=== PATIENT | female | born 1955 | race Caucasian/White ===

== ENCOUNTER 2016-10-30 19:22 | Inpatient (IN) | payer MEDICAID ==
[~2016-10-30] VITALS: Ht 172.7 cm; Wt 118.0 kg
[~2016-10-30 19:22] MED LIST: ASC500 PO; ASPI81TA3 PO; ATEN-122 NGT; CEPH500C PO; DIPH1TAB25 PO; FER325 PO; VERA240T94 PO
[2016-10-30] MEDS ORDERED: SOD CHLORIDE 0.9% 1,000 ML IV STA (22:12)
[2016-10-30] MEDS ORDERED: morphine 2 MG INJ IV STA (22:12)
[2016-10-30] MEDS ORDERED: ONDANSETRON 4 MG INJ IV STA (22:12)
[2016-10-30 22:47] LABS: ADD SCAN DIFF NO
[2016-10-30 22:56] LABS: BASOPHILS % 0.3 % (0.0-2.0); EOSINOPHILS # 0.4 10^3/ul (0.0-0.5); EOSINOPHILS % 2.8 % (0.0-7.0); HEMATOCRIT 29.4 % (37.0-47.0); HEMOGLOBIN 8.6 g/dl (12.0-16.0); LYMPHOCYTES # 3.3 10^3/ul (0.8-2.9); LYMPHOCYTES % 26.1 % (15.0-51.0); MEAN CORPUSCULAR HEMOGLOBIN 20.8 pg (29.0-33.0); MEAN CORPUSCULAR HGB CONC 29.3 g/dl (32.0-37.0); MEAN CORPUSCULAR VOLUME 71.2 fl (82.0-101.0); MEAN PLATELET VOLUME 8.6 fl (7.4-10.4); MONOCYTE # 0.9 10^3/ul (0.3-0.9); MONOCYTES % 6.9 % (0.0-11.0); NEUTROPHILS % 63.5 % (39.0-77.0); PLATELET COUNT 564 10^3/UL (140-415); RED BLOOD COUNT 4.13 10^6/ul (4.20-5.40); RED CELL DISTRIBUTION WIDTH 20.3 % (11.5-14.5); WHITE BLOOD COUNT 12.6 10^3/ul (4.8-10.8)
[2016-10-30 23:01] LABS: ALBUMIN 3.5 g/dl (3.3-4.9); POTASSIUM 4.6 mmol/L (3.5-5.1)
[2016-10-30 23:02] LABS: ADD UMIC YES; URINE BILIRUBIN (Dip) NEGATIVE (NEGATIVE); URINE BLOOD (Dip) NEGATIVE (NEGATIVE); URINE COLOR LT. YELLOW (YELLOW); URINE GLUCOSE (Dip) NEGATIVE (NEGATIVE); URINE KETONES (Dip) NEGATIVE (NEGATIVE); URINE LEUKOCYTE ESTERASE (Dip) 1+ (NEGATIVE); URINE NITRITE (Dip) NEGATIVE (NEGATIVE); URINE TOTAL PROTEIN (Dip) NEGATIVE (NEGATIVE); URINE UROBILINOGEN (Dip) 0.2 E.U./dL (0.1-1.0)
[2016-10-30 23:03] LABS: CREATININE 0.84 mg/dl (0.44-1.00)
[2016-10-30 23:04] LABS: ALBUMIN/GLOBULIN RATIO 0.77; CALCIUM 9.5 mg/dl (8.4-10.2)
[2016-10-30 23:24] LABS: BACTERIA,URINE RARE; SQUAMOUS EPITHELIAL CELL,UR FEW; URINE RBCS 0-2 /HPF (0)
--- NOTE | 2016-10-31 00:53 | RADRPT ---
PROCEDURE: CT abdomen and pelvis without contrast. CLINICAL INDICATION: Abdominal pain TECHNIQUE: CT scan of the abdomen and pelvis without contrast was performed. Sagittal and coronal reformatted images were obtained from the axial source images. CTDI = 16.78 mGy; DLP = 1016.98 mGy- cm COMPARISON: None available. FINDINGS: Visualized lower thorax: Minimal inferior lingular scarring otherwise the lung bases are clear. Th ere is no evidence for pleural effusion. Liver, gallbladder, pancreas and spleen: Mild hepatomegaly of 20 cm is present with normal contour and attenuation. There is no evidence for a liver mass or ductal dilatation. Cholecystectomy clips are present. Within the right upper abdominal wall just anterior to the left hepatic lobe is a def ect of approximately 5.2 cm in transverse dimension through which a fat containing right paracentral ventral hernia extends, the hernia estimated at 8.5 cm parentheses series 3 image 54). No common b ile duct abnormality is demonstrated. The pancreas is unremarkable. The spleen is normal in size. Adrenal glands and genitourinary system: The adrenal glands are normal bilaterally. The right kidne y demonstrates calculi, the lower pole stones have an aggregate dimension of 1.3 x 1.2 cm and in att enuation estimated at 900 HU (series 3 image 91). An additional separate posterior lower pole calcu chelsey of 6 mm is also present. There is no evidence of hydronephrosis. A simple cyst of the lower po le right kidney measures 5.3 cm. The left kidney has too small lower pole calculi each measuring ap proximately 3 mm and without hydronephrosis. Multiple cysts of the left renal cortex are present th e largest has a calcified septation and bilobed appearance in the upper pole, the abnormality measur ing 8 cm in greatest dimension. The ureters are unremarkable. No urinary bladder abnormality is de monstrated. Slightly lobulated contour to the uterine corpus unable to exclude small leiomyomata. No ovarian or adnexal masses are present. There is no free fluid in the cul-de-sac. Gastrointestinal system: The stomach is normal in caliber with no abnormality of significance. The small bowel is normal in caliber with no ileus, obstruction or wall thickening. The appendix and s urrounding fat are within the limits of normal. In the proximal ascending colon there is abnormal w all thickening of up to 4 cm that raises concern for underlying neoplasm, small sub centimeter peric olonic lymph nodes are present (series 601 images 39-49). Diverticular disease of the descending an d sigmoid colon is moderate to severe but there is no evidence of diverticulitis. Peritoneum, retroperitoneum, lymph nodes and vessels: The abdominal aorta is normal in caliber. The re is no evidence for atherosclerotic calcification. The inferior vena cava is unremarkable. In the lymph nodes within the right lower quadrant are prominent but measure less than 1 cm. The retroper itoneal lymph nodes are normal in size. There is no ascites. No pneumoperitoneum is present Osseous structures and musculoskeletal findings: There is no fracture, lytic or blastic lesion. Mil d thoracolumbar spondylosis is noted. No muscular abnormality or soft tissue pathology is present. C opious subcutaneous adipose tissue is consistent with morbid obesity RPTAT:HJJR IMPRESSION: 1. Abnormal thickening of the wall involving the proximal ascending colon near the cecum is most co nsistent with primary colonic neoplasm until proven otherwise with suspected adjacent sub centimeter metastatic lymph nodes. The greatest dimension of the mass is estimated at 6 cm. Follow-up evaluat ion is recommended. 2. Bilateral intrarenal calculi greater in the right lower pole without evidence of hydronephrosis. Multiple bilateral renal cysts are present the largest with a septation in the left upper pole ronan suring 8.2 cm. 3. Fat-containing right paracentral supraumbilical ventral hernia measures a 0.5 cm in greatest dim ension. 4. Diverticular disease of the colon without diverticulitis. 5. Mild hepatomegaly without evidence of hepatic mass. 6. Changes of prior cholecystectomy. Physician Silvestre Date Time Electronically viewed and signed by Tomasz Loera Physician on 10/31/2016 00:52 JR/
[2016-10-31] MEDS ORDERED: HYDROmorphONE 1 MG/ML SYG IV STA ×2 (02:45)
[2016-10-31] MEDS ORDERED: CEFTRIAXONE 1 GM/50 ML (PMX) 50 ML IVPB ONE (03:00)
--- NOTE | 2016-10-31 04:26 | ERA ---
ER Documentation Chief Complaint Date/Time DATE: 10/31/16 TIME: 04:20 Chief Complaint RLQ abd pain w/ dizziness x 4 days HPI This 61-year-old female presented to the ER for right lower quadrant pain going on for 4 days. She also states that she gets dizzy as in lightheaded as well as. Palpation makes abdominal pain more severe and is described as a sharp pain. Denies fever and chills but worries that maybe her appendix. Patient also admits to occasional rectal bleeding. States that is not happening the last few days. States it is actually been going on for over a year. ROS All systems reviewed and are negative except as per history of present illness. Medications Home Meds Active Scripts Ascorbic Acid (Vitamin C) 500 Mg Tab, 500 MG PO DAILY, #30 TAB 2 Refills Prov:YASMINE GUEVARA MD 10/17/15 Ferrous Sulfate* (Ferrous Sulfate*) 325 Mg Tabec, 325 MG PO BID, #60 TAB 2 Refills Prov:YASMINE GUEVARA MD 10/17/15 Verapamil Hcl* (Verapamil ER*) 240 Mg Tabsr, 240 MG PO DAILY, #30 TAB 1 Refill Prov:YASMINE GUEVARA MD 10/17/15 Atenolol* (Tenormin*) 50 Mg Tab, 50 MG NGT BID, #60 TAB 1 Refill Prov:YASMINE GUEVARA MD 10/17/15 Aspirin (Aspirin) 81 Mg Chew, 81 MG PO DAILY, #30 TAB 1 Refill Prov:YASMINE GUEVARA MD 10/17/15 Reported Medications Diphenoxylate Hcl-Atropine* (Lomotil*) 1 Tab Tab, 1 TAB PO Q6H Y for DIARRHEA, TAB 10/13/15 Discontinued Scripts Cephalexin* (Cephalexin*) 500 Mg Capsule, 500 MG PO TID, #15 CAP Prov:YASMINE GUEVARA MD 10/17/15 Allergies Allergies: Coded Allergies: No Known Allergy (Verified , 10/30/16) PMhx/Soc History of Surgery: Yes (CHOLECYSTECTOMY) Anesthesia Reaction: No Hx Neurological Disorder: No Hx Respiratory Disorders: Yes (ASTHMA) Hx Cardiac Disorders: Yes (HTN) Hx Psychiatric Problems: No Hx Alcohol Use: No Hx Substance Use: No Hx Tobacco Use: No Smoking Status: Never smoker Physical Exam Vitals Vital Signs Date Time Temp Pulse Resp B/P Pulse Ox O2 Delivery O2 Flow Rate FiO2 10/31/16 02:30 98.7 73 18 124/58 99 Room Air 10/30/16 19:36 98.6 82 20 140/86 99 Physical Exam Const: [] No distress Head: Atraumatic Eyes: Normal Conjunctiva ENT: Normal External Ears, Nose and Mouth. Neck: Full range of motion..~ No meningismus. Resp: Clear to auscultation bilaterally Cardio: Regular rate and rhythm, no murmurs Abd: Soft, moderate to severe right lower quadrant pain when pannus is raised in the correct spot in the right lower quadrant as palpated, no signs of surgical abdomen, non distended. Normal bowel sounds Skin: No petechiae or rashes Back: No midline or flank tenderness Ext: No cyanosis, or edema Neur: Awake and alert and oriented 3, no focal deficits Psych: Normal Mood and Affect Result Diagram: 10/30/16222710/30/162227 Results 24 hrs Laboratory Tests Test 10/30/16 22:19 10/30/16 22:28 Urine Bacteria RARE Urine Bilirubin NEGATIVE Urine Clarity CLEAR Urine Color LT. YELLOW Urine Glucose NEGATIVE% Urine Hemoglobin NEGATIVE Urine Ketones NEGATIVE Urine Leukocyte Esterase 1+ Urine Microscopic RBC 0-2/HPF Urine Microscopic WBC 10-25/HPF Urine Nitrite NEGATIVE Urine Specific [place] 1.020 Urine Squamous Epithelial Cells FEW Urine Total Protein NEGATIVE Urine Urobilinogen 0.2 E.U./dL Urine pH 6.0 Alanine Aminotransferase (ALT/SGPT) 19IU/L Albumin 3.5g/dl Albumin/Globulin Ratio 0.77 Alkaline Phosphatase 74IU/L Anion Gap 16 Aspartate Amino Transf (AST/SGOT) 15IU/L Basophils # 0.010^3/ul Basophils % 0.3% Blood Urea Nitrogen 15mg/dl Calcium Level 9.5mg/dl Carbon Dioxide Level 26mmol/L Chloride Level 101mmol/L Creatinine 0.84mg/dl Direct Bilirubin 0.00mg/dl Eosinophils # 0.410^3/ul Eosinophils % 2.8% Globulin 4.50g/dl Glucose Level 103mg/dl Hematocrit 29.4% Hemoglobin 8.6g/dl Indirect Bilirubin 0.0mg/dl Lactic Acid Level 1.5mmol/L Lipase 48U/L Lymphocytes # 3.310^3/ul Lymphocytes % 26.1% Mean Corpuscular Hemoglobin 20.8pg Mean Corpuscular Hemoglobin Concent 29.3g/dl Mean Corpuscular Volume 71.2fl Mean Platelet Volume 8.6fl Monocytes # 0.910^3/ul Monocytes % 6.9% Neutrophils # 8.010^3/ul Neutrophils % 63.5% Nucleated Red Blood Cells # 0.010^3/ul Nucleated Red Blood Cells % 0.0/100WBC Platelet Count 97958^3/UL Potassium Level 4.6mmol/L Red Blood Count 4.1310^6/ul Red Cell Distribution Width 20.3% Sodium Level 138mmol/L Total Bilirubin 0.0mg/dl Total Protein 8.0g/dl White Blood Count 12.610^3/ul Current Medications Medications (Trade) Dose Ordered Sig/Kiera Route PRN Reason Start Time Stop Time Status Last Admin Dose Admin Sodium Chloride (NS) 1,000 ml @ 1,000 mls/hr Q1H STAT IV 10/30/16 22:12 10/30/16 23:11 DC 10/30/16 22:34 Morphine Sulfate (morphine) 2 mg ONCE STAT IV 10/30/16 22:12 10/30/16 22:13 DC 10/30/16 22:36 Ondansetron HCl (Zofran Inj) 4 mg ONCE STAT IV 10/30/16 22:12 10/30/16 22:13 DC 10/30/16 22:36 Hydromorphone HCl (Dilaudid) 0.5 mg ONCE STAT IV 10/31/16 02:45 10/31/16 02:46 DC 10/31/16 02:57 Hydromorphone HCl 1 mg 1 mg ONCE STAT IV 10/31/16 02:45 10/31/16 02:46 DC 10/31/16 02:49 Ceftriaxone Sodium (Rocephin) 50 ml @ 100 mls/hr ONCE ONCE IVPB 10/31/16 03:00 10/31/16 03:29 DC 10/31/16 03:31 Procedures/MDM Right lower cardio abdominal pain likely secondary to colon neoplasm newly diagnosed today. She also had pain requiring multiple doses of pain medication to control. Ana has UTI without signs of sepsis. Hemoglobin has dropped by 2 in the last year. She likely has a slow GI bleed as well. She is given IV fluids as well as a gram of Rocephin in the emergency room. He required morphine and then 2 doses of Dilaudid to complete control the pain. I spoke with Dr. Hobson who will be admitting the patient the mid surgical floor. Dr. Amin, surgeon tenoner operator has been paged. Awaiting his call to notify him of the surgical consult. CT abdomen and pelvis interpretation: Abnormal thickening of the proximal ascending colon consistent with neoplasm with multiple inflamed lymph nodes surrounding. Bilateral renal stones. No hydronephrosis. Small right ventral hernia, no free air, no obstruction, no fractures. Departure Diagnosis: Primary Impression: Abdominal pain Additional Impressions: Colon neoplasm Microcytic anemia Urinary tract infection Generalized weakness Condition: Stable MARGARITA SHAW DO Oct 31, 2016 04:26
[2016-10-31] MEDS ORDERED: ACETAMINOPHEN 325 MG TAB PO PRN ×2 (04:30→08:00)
[2016-10-31] MEDS ORDERED: ONDANSETRON 4 MG INJ IV PRN ×2 (04:30→08:00)
[2016-10-31] MEDS ORDERED: BENA10TA48 PO (04:34)
[2016-10-31] MEDS ORDERED: ISOS30TA5 PO (04:34)
[2016-10-31 06:08] VITALS: TEMP 99
[2016-10-31 06:40] VITALS: BP 145/65; PULSE 76; RESP 18
[2016-10-31 06:59] VITALS: Ht 172.7 cm; Wt 118.0 kg
[2016-10-31] MEDS ORDERED: NACL 0.9% 3 ML SYG IV SCH (08:00)
[2016-10-31 08:34] VITALS: BP 114/63; RESP 18
[2016-10-31] MEDS: FAMOTIDINE 20 MG TAB PO SCH ×2 (09:36→21:34)
[2016-10-31] MEDS: FERROUS SULFATE (EC) 325 MG TAB PO SCH ×2 (09:36→21:34)
[2016-10-31] MEDS ORDERED: DIPHENOXYLATE/ATROPINE TAB PO PRN (10:30)
[2016-10-31] MEDS: ASPIRIN 81 MG TAB PO SCH (11:00)
[2016-10-31] MEDS: ASCORBIC ACID 500 MG TAB PO SCH (11:00)
[2016-10-31] MEDS: BENAZEPRIL 10 MG TAB PO SCH ×2 (11:01→21:34)
[2016-10-31] MEDS: ATENOLOL 50 MG TAB NGT SCH ×2 (11:01→21:34)
[2016-10-31] MEDS: morphine 2 MG INJ IV PRN ×2 (11:05→23:03)
[2016-10-31 12:22] LABS: ADD SCAN DIFF NO
[2016-10-31 12:27] LABS: BASOPHILS % 0.3 % (0.0-2.0); EOSINOPHILS # 0.3 10^3/ul (0.0-0.5); EOSINOPHILS % 2.3 % (0.0-7.0); HEMATOCRIT 25.9 % (37.0-47.0); HEMOGLOBIN 7.6 g/dl (12.0-16.0); LYMPHOCYTES # 2.1 10^3/ul (0.8-2.9); LYMPHOCYTES % 18.5 % (15.0-51.0); MEAN CORPUSCULAR HEMOGLOBIN 20.8 pg (29.0-33.0); MEAN CORPUSCULAR HGB CONC 29.3 g/dl (32.0-37.0); MEAN PLATELET VOLUME 8.2 fl (7.4-10.4); MONOCYTE # 0.8 10^3/ul (0.3-0.9); MONOCYTES % 7.2 % (0.0-11.0); NEUTROPHIL # 8.2 10^3/ul (1.6-7.5); NEUTROPHILS % 71.4 % (39.0-77.0); PLATELET COUNT 480 10^3/UL (140-415); RED BLOOD COUNT 3.65 10^6/ul (4.20-5.40); RED CELL DISTRIBUTION WIDTH 19.9 % (11.5-14.5); WHITE BLOOD COUNT 11.5 10^3/ul (4.8-10.8)
[2016-10-31] MEDS: VERAPAMIL (SR) 240 MG TAB PO SCH (12:39)
[2016-10-31] MEDS: ISOSORBIDE MONONITRATE(SR)30 MG TAB PO SCH (12:40)
[2016-10-31 14:22] LABS: HEMATOCRIT 26.4 % (37.0-47.0); HEMOGLOBIN 7.7 g/dl (12.0-16.0)
--- NOTE | 2016-10-31 14:42 | CONS ---
Date/Time of Note Date/Time of Note DATE: 10/31/16 TIME: 14:34 Assessment/Plan Assessment/Plan Additional Assessment/Plan Rectal Bleeding * Stool OB * Monitor hemoglobin every 8 hours, transfuse 2 units for hemoglobin less than 7.5 * Bowel prep * Colonoscopy with Abdominal pain Consultation Date/Type/Reason Admit Date/Time Oct 31, 2016 at 04:19 Reason for Consultation Rectal bleeding and abdominal pain Hx of Present Illness 61 YO woman that presented to ED with complaints of abdominal pain that worse with palpation. She reports intermittent rectal bleeding with bowel movements since Jul 2016. She reports a history of hemorrhoids and NSAID use and attributed the rectal bleeding to these two factors. Pt reports intermittent abdominal pain that normally would dissapate in minutes to hours and was very infrequent. She reports colonoscopy with polyp removed several years ago. Pt denies nausea, vomiting, fever, chills, and diarrhea. Pt reports PMH of congestive heart failure, irritable bowel syndrome, and asthma. Pt consents to colonoscopy. Advised pt of R/B/A to procedure and she provides informed consent to proceed. Past Medical History Medical History: congestive heart failure Social History Smoking Status: Never smoker Exam/Review of Systems Vital Signs Vitals Vital Signs Date Time Temp Pulse Resp B/P Pulse Ox O2 Delivery O2 Flow Rate FiO2 10/31/16 08:34 97.8 71 18 114/63 94 10/31/16 06:08 Room Air Exam Constitutional: alert, oriented, well developed Psych: nl mood/affect Head: normocephalic Eyes: EOMI, nl conjunctiva, nl lids ENMT: nl external ears & nose, nl lips & teeth, nl nasal mucosa & septum Respiratory: clear to auscultation, normal air movement Cardiovascular: regular rate and rhythm Gastrointestinal: soft, tender Musculoskeletal: nl extremities to inspection Neurological: JIRA DEVELOPER II-XII intact Results Result Diagram: 10/31/16 1415 10/30/16 2228 Results 24 hrs Laboratory Tests Test 10/30/16 22:19 10/30/16 22:28 10/31/16 12:15 10/31/16 14:15 Urine Bacteria RARE Urine Bilirubin NEGATIVE Urine Clarity CLEAR Urine Color LT. YELLOW Urine Glucose NEGATIVE Urine Hemoglobin NEGATIVE Urine Ketones NEGATIVE Urine Leukocyte Esterase 1+ H Urine Microscopic RBC 0-2 Urine Microscopic WBC 10-25 Urine Nitrite NEGATIVE Urine Specific [place] 1.020 Urine Squamous Epithelial Cells FEW Urine Total Protein NEGATIVE Urine Urobilinogen 0.2 E.U./dL Urine pH 6.0 Alanine Aminotransferase (ALT/SGPT) 19 Albumin 3.5 Albumin/Globulin Ratio 0.77 Alkaline Phosphatase 74 Anion Gap 16 Aspartate Amino Transf (AST/SGOT) 15 Basophils # 0.0 0.0 Basophils % 0.3 0.3 Blood Urea Nitrogen 15 Calcium Level 9.5 Carbon Dioxide Level 26 Chloride Level 101 Creatinine 0.84 Direct Bilirubin 0.00 Eosinophils # 0.4 0.3 Eosinophils % 2.8 2.3 Globulin 4.50 H Glucose Level 103 Hematocrit 29.4 L 25.9 L 26.4 L Hemoglobin 8.6 L 7.6 L 7.7 L Indirect Bilirubin 0.0 Lactic Acid Level 1.5 Lipase 48 Lymphocytes # 3.3 H 2.1 Lymphocytes % 26.1 18.5 Mean Corpuscular Hemoglobin 20.8 L 20.8 L Mean Corpuscular Hemoglobin Concent 29.3 L 29.3 L Mean Corpuscular Volume 71.2 L 71.0 L Mean Platelet Volume 8.6 8.2 Monocytes # 0.9 0.8 Monocytes % 6.9 7.2 Neutrophils # 8.0 H 8.2 H Neutrophils % 63.5 71.4 Nucleated Red Blood Cells # 0.0 0.0 Nucleated Red Blood Cells % 0.0 0.0 Platelet Count 564 H 480 H Potassium Level 4.6 Red Blood Count 4.13 L 3.65 L Red Cell Distribution Width 20.3 H 19.9 H Sodium Level 138 Total Bilirubin 0.0 L Total Protein 8.0 White Blood Count 12.6 H 11.5 H Medications Medications Current Medications Ondansetron HCl (Zofran Inj) 4 mg Q6H PRN IV NAUSEA AND/OR VOMITING Last administered on 10/31/16 11:29; Admin Dose 4 MG; Start 10/31/16 at 08:00 Acetaminophen (Tylenol Tab) 650 mg Q6H PRN PO PAIN LEVEL 1-3 OR FEVER; Start at 08:00 Morphine Sulfate (morphine) 3 mg Q4H PRN IV SEVERE PAIN LEVEL 7-10 Last administered on 10/31/16 11:05; Admin Dose 3 MG; Start 10/31/16 at 08:00 Famotidine (Pepcid) 20 mg Q12 PO Last administered on 10/31/16 09:36; Admin Dose 20 MG; Start 10/31/16 at 09:00 Ferrous Sulfate (Ferrous Sulfate (Ec)) 325 mg BID PO Last administered on 09:36; Admin Dose 325 MG; Start 10/31/16 at 09:00 Ascorbic Acid (Vitamin C) 500 mg DAILY PO Last administered on 10/31/16 11:00; Admin Dose 500 MG; Start 10/31/16 at 10:30 Aspirin (Aspirin) 81 mg DAILY PO Last administered on 10/31/16 11:00; Admin Dose 81 MG; Start 10/31/16 at 10:30 Atenolol (Tenormin) 50 mg BID NGT Last administered on 10/31/16 11:01; Admin Dose 50 MG; Start 10/31/16 at 10:30 Benazepril HCl (Lotensin) 10 mg BID PO Last administered on 10/31/16 11:01; Admin Dose 10 MG; Start 10/31/16 at 10:30 Diphenoxylate HCl/ Atropine (Lomotil) 1 tab Q6H PRN PO DIARRHEA; Start 10/31/16 at 10:30 Isosorbide Mononitrate (Imdur) 30 mg DAILY PO Last administered on 10/31/16 12: 40; Admin Dose 30 MG; Start 10/31/16 at 10:30 Verapamil HCl (Isoptin Sr) 240 mg DAILY PO Last administered on 10/31/16 12:39 ; Admin Dose 240 MG; Start 10/31/16 at 10:30 FILIPE RAYMOND MD Oct 31, 2016 14:42
--- NOTE | 2016-10-31 14:53 | PN ---
Date/Time of Note Date/Time of Note DATE: 10/31/16 TIME: 14:47 Assessment/Plan VTE Prophylaxis VTE Prophylaxis Intervention: SCD's Lines/Catheters IV [facility]from [facility] Saline Lock Assessment/Plan Chief Complaint/Hosp Course Assessment and plan 1. Right lower quadrant inguinal pain. Patient noted to have abdominal CT that did show abnormal thickening of the wall involving the proximal ascending colon near the cecum most consistent with primary colonic neoplasm. Surgeon following. Senior Technical Editor consulted. Likely may need colonoscopy. We'll follow-up 2. Bilateral intrarenal calculi greater in the right lower pole without evidence of hydronephrosis. Monitor renal panel. 3. Diverticular disease without diverticulitis. Remain stable at present. We'll monitor 4. Essential hypertension. We'll continue on antihypertensives and adjust as needed 5. Anemia. Follow up on iron panel. Repeat check of H&H. Patient also with suspect GI bleed. Follow-up with GI recommendations. Transfuse as needed 6. Morbid obesity. Weight reduction advised. 7. Suspect UTI. Patient noted with positive leukocyte esterase test but follow- up on urine culture Disposition and plan: Follow-up with GI recommendations concerning possible colonic neoplasm. Surgeon input to follow. Continue inpatient monitoring. Discussed plan of care with Dr. Grimes Problems: Subjective 24 Hr Interval Summary Free Text/Dictation Does report having intermittent abdominal pain more on right inguinal area Exam/Review of Systems Vital Signs Vitals Vital Signs Date Time Temp Pulse Resp B/P Pulse Ox O2 Delivery O2 Flow Rate FiO2 10/31/16 08:34 97.8 71 18 114/63 94 10/31/16 06:08 Room Air Exam General: No apparent distress. Morbidly obese Eyes: [pupils equal round, Anicteric sclera] Neck: Supple nontender, no JVD Cardiac: Regular rate auscultated Pulmonary: Diminished minimally at lung bases GI: Upon palpation on right lower abdominal quadrant Extremities: [No edema bilateral lower extremities] Skin: [Clean dry and intact] Neurologic: [Alert to person place and time and situation] Results Result Diagram: 10/31/16 1415 10/30/16 2228 Results 24 hrs Laboratory Tests Test 10/30/16 22:19 10/30/16 22:28 10/31/16 12:15 10/31/16 14:15 Urine Bacteria RARE Urine Bilirubin NEGATIVE Urine Clarity CLEAR Urine Color LT. YELLOW Urine Glucose NEGATIVE Urine Hemoglobin NEGATIVE Urine Ketones NEGATIVE Urine Leukocyte Esterase 1+ H Urine Microscopic RBC 0-2 Urine Microscopic WBC 10-25 Urine Nitrite NEGATIVE Urine Specific [place] 1.020 Urine Squamous Epithelial Cells FEW Urine Total Protein NEGATIVE Urine Urobilinogen 0.2 E.U./dL Urine pH 6.0 Alanine Aminotransferase (ALT/SGPT) 19 Albumin 3.5 Albumin/Globulin Ratio 0.77 Alkaline Phosphatase 74 Anion Gap 16 Aspartate Amino Transf (AST/SGOT) 15 Basophils # 0.0 0.0 Basophils % 0.3 0.3 Blood Urea Nitrogen 15 Calcium Level 9.5 Carbon Dioxide Level 26 Chloride Level 101 Creatinine 0.84 Direct Bilirubin 0.00 Eosinophils # 0.4 0.3 Eosinophils % 2.8 2.3 Globulin 4.50 H Glucose Level 103 Hematocrit 29.4 L 25.9 L 26.4 L Hemoglobin 8.6 L 7.6 L 7.7 L Indirect Bilirubin 0.0 Lactic Acid Level 1.5 Lipase 48 Lymphocytes # 3.3 H 2.1 Lymphocytes % 26.1 18.5 Mean Corpuscular Hemoglobin 20.8 L 20.8 L Mean Corpuscular Hemoglobin Concent 29.3 L 29.3 L Mean Corpuscular Volume 71.2 L 71.0 L Mean Platelet Volume 8.6 8.2 Monocytes # 0.9 0.8 Monocytes % 6.9 7.2 Neutrophils # 8.0 H 8.2 H Neutrophils % 63.5 71.4 Nucleated Red Blood Cells # 0.0 0.0 Nucleated Red Blood Cells % 0.0 0.0 Platelet Count 564 H 480 H Potassium Level 4.6 Red Blood Count 4.13 L 3.65 L Red Cell Distribution Width 20.3 H 19.9 H Sodium Level 138 Total Bilirubin 0.0 L Total Protein 8.0 White Blood Count 12.6 H 11.5 H Medications Medications Current Medications Ondansetron HCl (Zofran Inj) 4 mg Q6H PRN IV NAUSEA AND/OR VOMITING Last administered on 10/31/16t 11:29; Admin Dose 4 MG; Start 10/31/16 at 08:00 Acetaminophen (Tylenol Tab) 650 mg Q6H PRN PO PAIN LEVEL 1-3 OR FEVER; Start at 08:00 Morphine Sulfate (morphine) 3 mg Q4H PRN IV SEVERE PAIN LEVEL 7-10 Last administered on 10/31/16 11:05; Admin Dose 3 MG; Start 10/31/16 at 08:00 Famotidine (Pepcid) 20 mg Q12 PO Last administered on 10/31/16 09:36; Admin Dose 20 MG; Start 10/31/16 at 09:00 Ferrous Sulfate (Ferrous Sulfate (Ec)) 325 mg BID PO Last administered on 09:36; Admin Dose 325 MG; Start 10/31/16 at 09:00 Ascorbic Acid (Vitamin C) 500 mg DAILY PO Last administered on 10/31/16 11:00; Admin Dose 500 MG; Start 10/31/16 at 10:30 Aspirin (Aspirin) 81 mg DAILY PO Last administered on 10/31/16 11:00; Admin Dose 81 MG; Start 10/31/16 at 10:30 Atenolol (Tenormin) 50 mg BID NGT Last administered on 10/31/16 11:01; Admin Dose 50 MG; Start 10/31/16 at 10:30 Benazepril HCl (Lotensin) 10 mg BID PO Last administered on 10/31/16 11:01; Admin Dose 10 MG; Start 10/31/16 at 10:30 Diphenoxylate HCl/ Atropine (Lomotil) 1 tab Q6H PRN PO DIARRHEA; Start 10/31/16 at 10:30 Isosorbide Mononitrate (Imdur) 30 mg DAILY PO Last administered on 10/31/16 12: 40; Admin Dose 30 MG; Start 10/31/16 at 10:30 Verapamil HCl (Isoptin Sr) 240 mg DAILY PO Last administered on 10/31/16 12:39 ; Admin Dose 240 MG; Start 10/31/16 at 10:30 YE CHO Oct 31, 2016 14:53
[2016-10-31] MEDS ORDERED: BISACODYL (EC) 5 MG TAB PO ONE ×2 (17:00→21:00)
[2016-10-31] MEDS ORDERED: MAGNESIUM CITRATE 300 ML BTL PO ONE (18:00)
[2016-10-31] MEDS ORDERED: POLYETHYLENE GLYCOL 3350 119 GM POWDER PO ONE ×2 (19:00→21:00)
[2016-10-31 20:20] LABS: HEMATOCRIT 26.9 % (37.0-47.0); HEMOGLOBIN 7.9 g/dl (12.0-16.0)
[2016-10-31 21:45] VITALS: BP 108/59; RESP 20
--- NOTE | 2016-10-31 22:18 | HP ---
DATE OF ADMISSION: 10/31/2016 CHIEF COMPLAINT: Right inguinal and right lower quadrant pain. HISTORY OF PRESENT ILLNESS: The patient is a 61-year-old female with a history of hypertension, ane yamile, asthma, probable CHF, and supraventricular tachyarrhythmia who [facility] with the above stated chief complaint. She said she had been having this problem for a little while, but acutely worsening over the past few days. She reports it is associated with nausea and decreased food intake. She also went on to say that she had been occasionally trying to lose weight and, in fact, she lost 60 pounds in 1 year. When the patient presented to the ER, CT abdomen and pelvis shows thickening in the proximal ascendi ng colon, likely primary neoplasm. I have discussed the findings with the patient and the need for a colonoscopy with a biopsy, which she agreed with. She states she currently lives with her leobardo so and states that she does not want any family members to know about this current diagnosis until a dditional diagnosis is made. REVIEW OF SYSTEMS: A 12 point review of systems was made. Positives in HPI. PAST MEDICAL HISTORY: As per HPI. SOCIAL HISTORY: Denied a history of tobacco, alcohol, or illicit drug use. ALLERGIES: NO KNOWN DRUG ALLERGIES. HOME MEDICATIONS: 1. Atenolol. 2. Ferrous sulfate. 3. Enalapril. 4. Verapamil. 5. Imdur. 6. Vitamin ____. 7. Aspirin. 8. Lomotil. PHYSICAL EXAMINATION: GENERAL: Obese female lying in bed in no acute distress. She seems to have flat affect, but was co operative. HEENT: No obvious head deformity. Pupils are reactive to light. Extraocular muscles intact. CARDIOVASCULAR: Regular rate and rhythm. No extra sounds. LUNGS: Clear anteriorly. ABDOMEN: Soft. There is tenderness in the right inguinal area and just above it with palpation. No guarding, no rigidity. There are positive bowel sounds. EXTREMITIES: No edema. LABORATORY DATA: WBC 12.6, hemoglobin 8.6, platelet count 564. Otherwise, CMP was within acceptabl e range. IMAGING: CT abdomen and pelvis was then begun, as mentioned in HPI. IMPRESSION: 1. Proximal ascending colon thickening, likely primary malignancy. 2. Right lower quadrant/right inguinal area pain, secondary to proximal ascending colon thickening, likely primary malignancy. 3. Iron deficiency anemia, probably most likely secondary to the colon tumor. 4. History of hypertension. 5. History of asthma. 6. Probable history of congestive heart failure. 7. History of supraventricular tachycardia. PLAN: Will place gastroenterology consult for colonoscopy with biopsy. Surgical consult has alread y been placed by the ER physician. Will provide pain medication and antiemetics as needed. We will monitor her hemoglobin closely and transfuse as needed. She will be continued with her ferrous sul fate as well as her other medications with adjustments as needed. Note that the patient does not want any family to know about the current finding of the CAT scan unt il a definitive diagnosis is made. Dictated By: KATIE DISLA/TONIA Conf#: [id number] DID#: [id number]
[2016-11-01] VITALS (8 sets, daily range): BP systolic 100–120; BP diastolic 54–66; PULSE 52–76; RESP 16–21
--- NOTE | 2016-11-01 01:51 | CONS ---
DATE OF ADMISSION: 10/31/2016 DATE OF CONSULTATION: 10/31/2016 TYPE OF CONSULTATION: Surgical. REFERRING PHYSICIAN: Melvin Shaw DO CHIEF COMPLAINT: 1. Abdominal pain. 2. Morbid obesity. 3. Right colon thickening, questionable tumor. 4. Anemia. 5. Rectal bleed. 6. Hemorrhoids. 7. Hypertension. 8. Congestive heart failure. HISTORY OF PRESENT ILLNESS: Pao Shaw is a 61-year-old female with multiple significant comorbidit ies who presents with 4 to 5 days of worsening right lower quadrant abdominal pain associated with b lood per rectum since July, but no fevers or chills. No nausea, vomiting. No chest pain, no sh ortness of breath. She denied any dysuria or vaginal discharge. No trauma or sick contacts. She w as worried for appendicitis and presented to the emergency room for further evaluation and treatment . Her last colonoscopy was about 10+ years ago. She has lost 50 pounds intentionally with dieting, but no exercise. In the emergency room, she is found to be afebrile with stable vitals. Labs show leukocytosis at 11 , low hemoglobin and hematocrit at 7.6/26, platelets are elevated at 480. Her chemistries mostly no rmal. Urine is dirty with possible UTI for leukocyte esterase. As I mentioned, CT scan shows abnor mal thickening of the proximal ascending colon near the cecum. The greatest dimension of the lesion was about 6 cm. There are adjacent subcentimeter lymph nodes that are positive. Bilateral renal c alculi, greater in the right lower pole, without hydronephrosis. Fat containing right paracentral a nd supraumbilical ventral hernia. Diverticulosis. Mild hepatomegaly. History of cholecystectomy. PAST MEDICAL HISTORY: 1. Morbid obesity with BMI of 40. 2. Hypertension. 3. Congestive heart failure. 4. Anemia. 5. Leukocytosis. 6. Thrombocytosis. 7. Abnormal colon lesion. 8. Pericolonic lymphadenopathy. 9. Hepatomegaly. 10. Bilateral renal calculi. 11. Ventral hernia. 12. Diverticulosis. 13. Asthma. 14. Herpes. PAST SURGICAL HISTORY: Cholecystectomy. MEDICATIONS: As per OCT. ALLERGIES: NONE. SOCIAL HISTORY: No current drugs or tobacco. However used to smoke and use marijuana and cocaine i n many years ago. Rare and occasional ETOH. FAMILY HISTORY: 1. Mother with cardiac disease, hypertension, Alzheimer's, and metabolic disease. 2. Father with hypertension and possible colonic lesions. 3. Multiple other cancers, including breast, cervical, and skin in the family. REVIEW OF SYSTEMS: A 12-point systems negative unless addressed in HPI. PHYSICAL EXAMINATION: VITAL SIGNS: Temperature 97.8, pulse 71, blood pressure 114/63, saturating 94%. GENERAL: No acute distress. Morbidly obese. PSYCHIATRIC: Flat affect. HEENT: Pupils equal, reactive. No scleral icterus. Mucous membranes are somewhat moist. NECK: Supple. No JVD. PULMONARY: Normal respiratory effort. No wheezing. CARDIAC: S1, S2 present. ABDOMEN: Soft, obese, minimally tender in right lower quadrant. No rebound, no guarding, not rigid . EXTREMITIES: No edema. VASCULAR: Cap refill less than 2 seconds. NEUROLOGIC: Alert, oriented, moves all 4 extremities grossly. LYMPHATICS: No inguinal, cervical, periauricular, or clavicular palpable lymph nodes. RECTAL: No masses, lesions, or induration. Small hemorrhoids. No blood. Small stool. LABORATORY AND RADIOGRAPHIC DATA: As per chart. ASSESSMENT AND PLAN: Ms. Pao Lopez is a 61-year-old female with multiple significant comorbidities. 1. Ascending colon lesion with lymph nodes, possible malignancy versus infectious or inflammatory e tiology. The patient will benefit from colonoscopy and biopsy. Will continue workup and will follo w as needed. 2. Hemorrhoids, uninflamed currently. 3. History of rectal bleed, possibly secondary to hemorrhoids or findings on CT scan in the colon. Workup in process. 4. Anemia secondary to above. Transfuse as needed and workup in process. 5. Morbid obesity. The patient is highly encouraged to continue her nutritional optimization and e xercise. 6. Hypertension. Continue diet and medication control and encourage weight loss. 7. Congestive heart failure history. Continue judicious fluid management and cardiac optimization. 8. Asthma history. Continue medical optimization. Encourage weight loss. 9. Possible urinary tract infection. Continue antibiotics. 10. Thrombocytosis secondary to CT findings probably. Workup as above. 11. Diverticulosis. Continue encourage nutritional and ____ optimization. 12. Abdominal pain, right lower quadrant, probably secondary to findings on CT scan. Workup and tr eatment as above. Consider antibiotics. Thank you very much for consulting me in this patient's care. Dictated By: SACHIN BIRD/TONIA Conf#: [id number] DID#: [id number] CC: KATIE TERRY MD; MELVIN SHAW DO;*End*
[2016-11-01 05:24] LABS: ADD SCAN DIFF NO
[2016-11-01 05:48] LABS: BASOPHILS % 0.3 % (0.0-2.0); EOSINOPHILS # 0.3 10^3/ul (0.0-0.5); EOSINOPHILS % 2.8 % (0.0-7.0); HEMATOCRIT 26.3 % (37.0-47.0); HEMOGLOBIN 7.8 g/dl (12.0-16.0); LYMPHOCYTES % 30.3 % (15.0-51.0); MEAN CORPUSCULAR HEMOGLOBIN 21.1 pg (29.0-33.0); MEAN CORPUSCULAR HGB CONC 29.7 g/dl (32.0-37.0); MEAN CORPUSCULAR VOLUME 71.1 fl (82.0-101.0); MEAN PLATELET VOLUME 8.6 fl (7.4-10.4); MONOCYTE # 0.7 10^3/ul (0.3-0.9); MONOCYTES % 7.5 % (0.0-11.0); NEUTROPHIL # 5.8 10^3/ul (1.6-7.5); NEUTROPHILS % 58.8 % (39.0-77.0); PLATELET COUNT 518 10^3/UL (140-415); RED CELL DISTRIBUTION WIDTH 19.9 % (11.5-14.5); WHITE BLOOD COUNT 9.8 10^3/ul (4.8-10.8)
[2016-11-01 06:00] LABS: INR 1.01; PROTIME 13.3 Sec (12.2-14.2)
[2016-11-01 06:01] LABS: PARTIAL THROMBOPLASTIN TIME 30.4 Sec (25.0-35.0)
[2016-11-01 06:08] LABS: IRON 14 ug/dl (35-150)
[2016-11-01 06:17] LABS: POTASSIUM 4.2 mmol/L (3.5-5.1); TOTAL IRON BINDING CAPACITY 344 ug/dl (241-421)
[2016-11-01 06:18] LABS: CREATININE 0.78 mg/dl (0.44-1.00)
[2016-11-01 06:19] LABS: ALBUMIN/GLOBULIN RATIO 0.81; BILIRUBIN,INDIRECT 0.1 mg/dl (0-1.1); BILIRUBIN,TOTAL 0.1 mg/dl (0.2-1.3); PHOSPHORUS 3.6 mg/dl (2.5-4.9); TOTAL PROTEIN 6.7 g/dl (6.1-8.1)
[2016-11-01 06:20] LABS: CALCIUM 9.1 mg/dl (8.4-10.2); MAGNESIUM 2.2 mg/dl (1.7-2.5)
[2016-11-01 06:42] LABS: FERRITIN 11.8 ng/ml (11.1-264.0)
[2016-11-01] MEDS: ASPIRIN 81 MG TAB PO SCH (08:49)
[2016-11-01] MEDS: VERAPAMIL (SR) 240 MG TAB PO SCH (08:49)
[2016-11-01] MEDS: BENAZEPRIL 10 MG TAB PO SCH ×2 (08:50→21:05)
[2016-11-01] MEDS: ASCORBIC ACID 500 MG TAB PO SCH (08:50)
[2016-11-01] MEDS: ISOSORBIDE MONONITRATE(SR)30 MG TAB PO SCH (08:50)
[2016-11-01] MEDS: ATENOLOL 50 MG TAB NGT SCH ×2 (08:50→21:05)
[2016-11-01] MEDS: FAMOTIDINE 20 MG TAB PO SCH ×2 (08:50→21:05)
[2016-11-01] MEDS: FERROUS SULFATE (EC) 325 MG TAB PO SCH ×2 (08:51→21:05)
--- NOTE | 2016-11-01 12:27 | PN ---
Date/Time of Note Date/Time of Note DATE: 11/01/16 TIME: 12:23 Assessment/Plan VTE Prophylaxis VTE Prophylaxis Intervention: SCD's Lines/Catheters IV C[facility] Type (from [facility]): Saline Lock Urinary Cath still in place: No Assessment/Plan Chief Complaint/Hosp Course Assessment and plan 1. Right lower quadrant inguinal pain. Patient noted to have abdominal CT that did show abnormal thickening of the wall involving the proximal ascending colon near the cecum most consistent with primary colonic neoplasm. Surgeon following. Edi Coordinator consulted.. Tentative plan for colonoscopy November 01, 2016 2. Bilateral intrarenal calculi greater in the right lower pole without evidence of hydronephrosis. Monitor renal panel. Appears stable at present 3. Diverticular disease without diverticulitis. Stable at present. Continue to monitor 4. Essential hypertension. We'll continue on antihypertensives and adjust as needed. Stable 5. Anemia. Plan for colonoscopy. Also noted with iron deficiency. Will continue on iron supplement 6. Morbid obesity. Weight reduction advised. 7. Suspect UTI. Noted with lactobacillus species. Will follow up on final culture Disposition and plan: Plan for colonoscopy today. Further recommendations per clinical course Discussed plan of care with Dr. Grimes Problems: Subjective 24 Hr Interval Summary Free Text/Dictation Patient resting at this time. Still reports having some abdominal pain. Exam/Review of Systems Vital Signs Vitals Vital Signs Date Time Temp Pulse Resp B/P Pulse Ox O2 Delivery O2 Flow Rate FiO2 11/01/16 08:51 76 119/56 11/01/16 08:00 97.9 17 96 10/31/16 06:08 Room Air Intake and Output 10/31/16 10/31/16 11/01/16 15:00 23:00 07:00 Intake Total 760 ml 1600 ml Output Total 950 ml 1600 ml Balance -190 ml 0 ml Exam General: Morbidly obese. She reports having some abdominal pain Eyes: Pupils equal round. Neck: Supple nontender, no JVD Cardiac: Regular rate auscultated, still Pulmonary: Diminished minimally at lung bases. No obvious wheezing or rhonchi GI: felt tipping machine tender upon palpation on lower abdominal quadrant on the right side Extremities: No obvious edema bilateral lower extremities Skin: Remains clean dry and intact Neurologic: Alert and oriented 3 Results Result Diagram: 11/01/16 0439 11/01/16 0439 Results 24 hrs Laboratory Tests Test 10/31/16 14:15 10/31/16 20:00 10/31/16 22:00 11/01/16 04:39 Hematocrit 26.4 L 26.9 L 26.3 L Hemoglobin 7.7 L 7.9 L 7.8 L Stool Occult Blood POSITIVE Activated Partial Thromboplast Time 30.4 Alanine Aminotransferase (ALT/SGPT) 20 Albumin 3.0 L Albumin/Globulin Ratio 0.81 Alkaline Phosphatase 63 Anion Gap 14 Aspartate Amino Transf (AST/SGOT) 12 L Basophils # 0.0 Basophils % 0.3 Blood Urea Nitrogen 9 Calcium Level 9.1 Carbon Dioxide Level 24 Chloride Level 102 Creatinine 0.78 Direct Bilirubin 0.00 Eosinophils # 0.3 Eosinophils % 2.8 Ferritin 11.8 Globulin 3.70 H Glucose Level 95 Hemoglobin A1c 5.3 INR International Normalized Ratio 1.01 Indirect Bilirubin 0.1 Iron Level 14 L Lymphocytes # 3.0 H Lymphocytes % 30.3 Magnesium Level 2.2 Mean Corpuscular Hemoglobin 21.1 L Mean Corpuscular Hemoglobin Concent 29.7 L Mean Corpuscular Volume 71.1 L Mean Platelet Volume 8.6 Monocytes # 0.7 Monocytes % 7.5 Neutrophils # 5.8 Neutrophils % 58.8 Nucleated Red Blood Cells # 0.0 Nucleated Red Blood Cells % 0.0 Percent Iron Saturation 4 L Phosphorus Level 3.6 Platelet Count 518 H Potassium Level 4.2 Prothrombin Time 13.3 Prothrombin Time Ratio 1.0 Red Blood Count 3.70 L Red Cell Distribution Width 19.9 H Sodium Level 136 Total Bilirubin 0.1 L Total Iron Binding Capacity 344 Total Protein 6.7 # White Blood Count 9.8 Medications Medications Current Medications Ondansetron HCl (Zofran Inj) 4 mg Q6H PRN IV NAUSEA AND/OR VOMITING Last administered on 10/31/16 11:29; Admin Dose 4 MG; Start 10/31/16 at 08:00 Acetaminophen (Tylenol Tab) 650 mg Q6H PRN PO PAIN LEVEL 1-3 OR FEVER; Start at 08:00 Morphine Sulfate (morphine) 3 mg Q4H PRN IV SEVERE PAIN LEVEL 7-10 Last administered on 10/31/16 23:03; Admin Dose 3 MG; Start 10/31/16 at 08:00 Famotidine (Pepcid) 20 mg Q12 PO Last administered on 11/01/16 08:50; Admin Dose 20 MG; Start 10/31/16 at 09:00 Ferrous Sulfate (Ferrous Sulfate (Ec)) 325 mg BID PO Last administered on 21:34; Admin Dose 325 MG; Start 10/31/16 at 09:00 Ascorbic Acid (Vitamin C) 500 mg DAILY PO Last administered on 11/01/16 08:50; Admin Dose 500 MG; Start 10/31/16 at 10:30 Aspirin (Aspirin) 81 mg DAILY PO Last administered on 11/01/16 08:49; Admin Dose 81 MG; Start 10/31/16 at 10:30 Atenolol (Tenormin) 50 mg BID NGT Last administered on 11/01/16 08:50; Admin Dose 50 MG; Start 10/31/16 at 10:30 Benazepril HCl (Lotensin) 10 mg BID PO Last administered on 11/01/16 08:50; Admin Dose 10 MG; Start 10/31/16 at 10:30 Diphenoxylate HCl/ Atropine (Lomotil) 1 tab Q6H PRN PO DIARRHEA; Start 10/31/16 at 10:30 Isosorbide Mononitrate (Imdur) 30 mg DAILY PO Last administered on 11/01/16 08: 50; Admin Dose 30 MG; Start 10/31/16 at 10:30 Verapamil HCl 240 mg 240 mg DAILY PO Last administered on 11/01/16 08:49; Admin Dose 240 MG; Start 10/31/16 at 10:30 Ferric Sodium Gluconate Complex/ Sodium Chloride (Ferrlecit/NS) 110 ml @ 110 mls/hr Q24H IVPB ; Start 11/01/16 at 13:00; Stop 11/05/16 at 13:59 YE CHO Nov 01, 2016 12:27
[2016-11-01] MEDS: SOD FERRIC GLUC COMPLX 125 MG in SOD CHLORIDE 0.9% 100 ML IVPB SCH (12:49)
[2016-11-01] MEDS ORDERED: LIDOCAINE 2% (SDV) 5 ML INJ ONE (14:58)
[2016-11-01] MEDS ORDERED: PROPOFOL 40 ML ONE (14:58)
--- NOTE | 2016-11-01 16:20 | OPR ---
Date/Time of Note Date/Time of Note DATE: 11/01/16 TIME: 16:12 Operative Report Free Text/Dictation IMPRESSION: FRIABLE FUNGATING MASS IN THE ASCENDING COLON THAT IS OBSTRUCTING THE LUMEN PRECLUTING COMPLETION OF THE COLONOSCOPY TO THE CECUM. THE DISTAL END OF THE MASS IS TATTOO'D RECOMMENDATION: 1. F/U BIOPSY RESULTS 2. F/U BY SURGERY AND ONCOLOGY Procedure Date: Nov 01, 2016 Preoperative Diagnosis IRON DEFICIENCY ANEMIA Postoperative Diagnosis FRIABLE FUNGATING ASCENDING COLON MASS Operation Performed COLONOSCOPY WITH BIOPSY AND TATTOO Surgeon: CRISTI GODINEZ MD Anesthesiologist: ADILSON HUTCHISON MD Estimated Blood Loss: none Specimens ASCENDING COLON MASS BIOPSY Complications: None Pt Condition Post Procedure: stable Disposition: PACU Indications IRON DEFICIENCY ANEMIA, RIGHT SIDED ABDOMINAL PAIN Procedure Description AFTER TIME OUT AND INFORMED CONSENT, PATIENT WAS SEDATED BY DR. HUTCHISON. AFTER ADEQUATE SEDATION, I INSERTED AN ADULT COLONOSCOPE FROM THE ANUS AND ADVANCED TO ASCENDING COLON WHERE THERE IS A FRIABLE MASS WITH THE DISTAL END AT ABOUT 60 CM. I TRAVERSED 10 CM BEFORE I COULD NOT DUE TO THE LUMEN BEING OCCLUDED BY THE FRIABLE MASS. I TOOK 8 RANDOM BIOPSIES OF THE FRIABLE MASS. THE DISTAL END OF THE MASS IS TATTOO FOR IDENTIFICATION ON SURGERY. I THEN WITHDRAW THE COLONOSCOPE WHILE REMOVING AIR. PATIENT HAS NUMEROUS DIVERTICULOSIS THROUGHOUT THE COLON, WORST IN THE LEFT COLON. RETROFLEXION WAS PERFORMED SHOWING SMALL TO MODERATE SIZED INTERNAL HEMORRHOIDS. I THEN COMPLETELY REMOVED THE COLONOSCOPE WHILE REMOVING AIR. CRISTI GODINEZ MD Nov 01, 2016 16:20
[2016-11-01] MEDS ORDERED: HYDROmorphONE (0.2 MG/ML) 10ML SYG IV PRN (17:00)
[2016-11-01] MEDS ORDERED: FENTAnyl 50 MCG/ML VIAL IV PRN (17:00)
[2016-11-01] MEDS ORDERED: ONDANSETRON 4 MG INJ IV PRN (17:00)
[2016-11-01] MEDS ORDERED: ALBUTEROL/IPRATROPIUM (NEB) 3 ML AMP HHN PRN (17:30)
[2016-11-01] MEDS ORDERED: ALBUTEROL HFA 8 GM INHALER INH PRN (18:30)
--- NOTE | 2016-11-01 23:26 | PN ---
Date/Time of Note Date/Time of Note DATE: 11/01/16 TIME: 23:23 Assessment/Plan Lines/Catheters IV Catheter Type (from [facility]): Saline Lock [place] in Place (from [facility]): No Assessment/Plan Chief Complaint/Hosp Course 1. Ascending colon lesion with lymph nodes, possible malignancy versus infectious or inflammatory etiology. -Colonoscopy and biopsy today. 2. Hemorrhoids, uninflamed currently. 3. History of rectal bleed, possibly secondary to hemorrhoids or findings on CT scan in the colon. Workup in process. 4. Anemia secondary to above. Transfuse as needed and workup in process. 5. Morbid obesity. The patient is highly encouraged to continue her nutritional optimization and exercise. 6. Hypertension. Continue diet and medication control and encourage weight loss. 7. Congestive heart failure history. Continue judicious fluid management and cardiac optimization. 8. Asthma history. Continue medical optimization. Encourage weight loss. 9. Possible urinary tract infection. Continue antibiotics. 10. Thrombocytosis secondary to CT findings probably. Workup as above. 11. Diverticulosis. Continue encourage nutritional and lifestyle optimization. 12. Abdominal pain, right lower quadrant, probably secondary to findings on CT scan. Workup and treatment as above. Consider antibiotics. Thank you Problems: Subjective 24 Hr Interval Summary Colonoscopy today. No fever or chills. No cp or sob. No cough. No sparrow. Min pain. No dizziness, visual or neuro changes. No dysuria. Bowel function. Exam/Review of Systems Vital Signs Vitals Vital Signs Date Time Temp Pulse Resp B/P Pulse Ox O2 Delivery O2 Flow Rate FiO2 11/01/16 19:18 97.8 72 16 120/60 99 11/01/16 17:51 Room Air Intake and Output 10/31/16 10/31/16 11/01/16 15:00 23:00 07:00 Intake Total 760 ml 1600 ml Output Total 950 ml 1600 ml Balance -190 ml 0 ml Exam Free Text/Dictation GENERAL: No acute distress. Morbidly obese. PSYCHIATRIC: Flat affect. HEENT: Pupils equal, reactive. No scleral icterus. Mucous membranes are somewhat moist. NECK: Supple. No JVD. PULMONARY: Normal respiratory effort. No wheezing. CARDIAC: S1, S2 present. ABDOMEN: Soft, obese, minimally tender in right lower quadrant. No rebound, no guarding, not rigid. EXTREMITIES: No edema. VASCULAR: Cap refill less than 2 seconds. NEUROLOGIC: Alert, oriented, moves all 4 extremities grossly. LYMPHATICS: No inguinal, cervical, periauricular, or clavicular palpable lymph nodes. RECTAL: No masses, lesions, or induration. Small hemorrhoids. No blood. Small stool. Results Result Diagram: 11/01/16 0439 11/01/16 0439 SACHIN MALAVE MD Nov 01, 2016 23:26
[2016-11-02 05:08] LABS: ADD SCAN DIFF NO
[2016-11-02 05:22] LABS: ABNORMAL IP MESSAGE 1; BASOPHILS % 0.3 % (0.0-2.0); EOSINOPHILS # 0.3 10^3/ul (0.0-0.5); HEMATOCRIT 26.6 % (37.0-47.0); HEMOGLOBIN 7.7 g/dl (12.0-16.0); LYMPHOCYTES # 2.4 10^3/ul (0.8-2.9); LYMPHOCYTES % 25.1 % (15.0-51.0); MEAN CORPUSCULAR HEMOGLOBIN 20.4 pg (29.0-33.0); MEAN CORPUSCULAR HGB CONC 28.9 g/dl (32.0-37.0); MEAN CORPUSCULAR VOLUME 70.4 fl (82.0-101.0); MEAN PLATELET VOLUME 8.6 fl (7.4-10.4); MONOCYTE # 0.6 10^3/ul (0.3-0.9); MONOCYTES % 6.6 % (0.0-11.0); NEUTROPHIL # 6.3 10^3/ul (1.6-7.5); NEUTROPHILS % 64.7 % (39.0-77.0); PLATELET COUNT 505 10^3/UL (140-415); RED BLOOD COUNT 3.78 10^6/ul (4.20-5.40); RED CELL DISTRIBUTION WIDTH 19.9 % (11.5-14.5); WHITE BLOOD COUNT 9.7 10^3/ul (4.8-10.8)
[2016-11-02 05:48] LABS: POTASSIUM 3.7 mmol/L (3.5-5.1)
[2016-11-02 05:51] LABS: CREATININE 0.8 mg/dl (0.44-1.00)
[2016-11-02 05:52] LABS: CALCIUM 9.1 mg/dl (8.4-10.2)
[2016-11-02 07:46] VITALS: BP 128/64; RESP 16
[2016-11-02] MEDS: FAMOTIDINE 20 MG TAB PO SCH ×2 (08:31→20:53)
[2016-11-02] MEDS: ASCORBIC ACID 500 MG TAB PO SCH (08:31)
[2016-11-02] MEDS: ASPIRIN 81 MG TAB PO SCH (08:31)
[2016-11-02] MEDS: FERROUS SULFATE (EC) 325 MG TAB PO SCH ×2 (08:31→20:53)
[2016-11-02] MEDS: VERAPAMIL (SR) 240 MG TAB PO SCH (08:32)
[2016-11-02] MEDS: BENAZEPRIL 10 MG TAB PO SCH ×2 (08:32→20:54)
[2016-11-02] MEDS: ATENOLOL 50 MG TAB NGT SCH ×2 (08:32→20:54)
[2016-11-02] MEDS: ISOSORBIDE MONONITRATE(SR)30 MG TAB PO SCH (08:33)
[2016-11-02] MEDS: SOD FERRIC GLUC COMPLX 125 MG in SOD CHLORIDE 0.9% 100 ML IVPB SCH (13:15)
--- NOTE | 2016-11-02 15:57 | PN ---
Date/Time of Note Date/Time of Note DATE: 11/02/16 TIME: 15:55 Assessment/Plan VTE Prophylaxis VTE Prophylaxis Intervention: SCD's Lines/Catheters [facility]from [facility] Saline Lock Urinary Cath still in place: No Assessment/Plan Chief Complaint/Hosp Course Assessment and plan 1. Right lower quadrant inguinal pain. Patient noted to have abdominal CT that did show abnormal thickening of the wall involving the proximal ascending colon near the cecum most consistent with primary colonic neoplasm. Surgeon following. Staff Radiologist consulted.. Patient status post colonoscopy. Will follow with results. Follow-up on pathology and biopsy 2. Bilateral intrarenal calculi greater in the right lower pole without evidence of hydronephrosis. Appears stable at present. No active issue at this time 3. Diverticular disease without diverticulitis. Stable at present. Continue to monitor. Will provide analgesics as needed 4. Essential hypertension. We'll continue on antihypertensives and adjust as needed. Stable 5. Anemia. Follow-up on occult stool. Continue iron supplement 6. Morbid obesity. Weight reduction advised. 7. Suspect UTI. Noted with lactobacillus species. Will follow up on final culture Disposition and plan: Status post colonoscopy. Follow-up on biopsy results. Follow-up with surgeon recommendations Discussed plan of care with Dr. Grimes Problems: Subjective 24 Hr Interval Summary Free Text/Dictation Still reports right lower quadrant abdominal pain. No other specific complaints. Exam/Review of Systems Vital Signs Vitals Vital Signs Date Time Temp Pulse Resp B/P Pulse Ox O2 Delivery O2 Flow Rate FiO2 11/02/16 07:46 97.9 60 16 128/64 97 11/01/16 17:51 Room Air Intake and Output 11/01/16 11/01/16 11/02/16 15:00 23:00 07:00 Intake Total 110 ml 620 ml 480 ml Output Total 950 ml Balance 110 ml -330 ml 480 ml Exam General: Morbidly obese. She reports having some abdominal pain. Not much changed Eyes: Pupils equal round. Reactive to light Neck: Supple nontender, no JVD Cardiac: S1-S2 auscultated Pulmonary: No adventitious sounds auscultate GI: sueding machine tender upon palpation on lower abdominal quadrant on the right side today Extremities: No obvious edema bilateral lower extremities today Skin: Remains clean dry and intact Neurologic: Alert and oriented 3 Results Result Diagram: 11/02/16 0413 11/02/16 0413 Results 24 hrs Laboratory Tests Test 11/02/16 04:13 Anion Gap 13 Basophils # 0.0 Basophils % 0.3 Blood Urea Nitrogen 8 Calcium Level 9.1 Carbon Dioxide Level 25 Chloride Level 106 Creatinine 0.80 Eosinophils # 0.3 Eosinophils % 3.0 Glucose Level 89 Hematocrit 26.6 L Hemoglobin 7.7 L Lymphocytes # 2.4 Lymphocytes % 25.1 Mean Corpuscular Hemoglobin 20.4 L Mean Corpuscular Hemoglobin Concent 28.9 L Mean Corpuscular Volume 70.4 L Mean Platelet Volume 8.6 Monocytes # 0.6 Monocytes % 6.6 Neutrophils # 6.3 Neutrophils % 64.7 Nucleated Red Blood Cells # 0.0 Nucleated Red Blood Cells % 0.0 Platelet Count 505 H Potassium Level 3.7 Red Blood Count 3.78 L Red Cell Distribution Width 19.9 H Sodium Level 140 White Blood Count 9.7 Medications Medications Current Medications Ondansetron HCl (Zofran Inj) 4 mg Q6H PRN IV NAUSEA AND/OR VOMITING Last administered on 10/31/16 11:29; Admin Dose 4 MG; Start 10/31/16 at 08:00 Acetaminophen (Tylenol Tab) 650 mg Q6H PRN PO PAIN LEVEL 1-3 OR FEVER; Start at 08:00 Morphine Sulfate (morphine) 3 mg Q4H PRN IV SEVERE PAIN LEVEL 7-10 Last administered on 10/31/16 23:03; Admin Dose 3 MG; Start 10/31/16 at 08:00 Famotidine (Pepcid) 20 mg Q12 PO Last administered on 11/02/16 08:31; Admin Dose 20 MG; Start 10/31/16 at 09:00 Ferrous Sulfate (Ferrous Sulfate (Ec)) 325 mg BID PO Last administered on 08:31; Admin Dose 325 MG; Start 10/31/16 at 09:00 Ascorbic Acid (Vitamin C) 500 mg DAILY PO Last administered on 11/02/16 08:31; Admin Dose 500 MG; Start 10/31/16 at 10:30 Aspirin (Aspirin) 81 mg DAILY PO Last administered on 11/02/16 08:31; Admin Dose 81 MG; Start 10/31/16 at 10:30 Atenolol (Tenormin) 50 mg BID NGT Last administered on 11/02/16 08:32; Admin Dose 50 MG; Start 10/31/16 at 10:30 Benazepril HCl (Lotensin) 10 mg BID PO Last administered on 11/02/16 08:32; Admin Dose 10 MG; Start 10/31/16 at 10:30 Diphenoxylate HCl/ Atropine (Lomotil) 1 tab Q6H PRN PO DIARRHEA; Start 10/31/16 at 10:30 Isosorbide Mononitrate (Imdur) 30 mg DAILY PO Last administered on 11/02/16 08: 33; Admin Dose 30 MG; Start 10/31/16 at 10:30 Verapamil HCl 240 mg 240 mg DAILY PO Last administered on 11/02/16 08:32; Admin Dose 240 MG; Start 10/31/16 at 10:30 Ferric Sodium Gluconate Complex/ Sodium Chloride (Ferrlecit/NS) 110 ml @ 110 mls/hr Q24H IVPB Last administered on 11/02/16 13:15; Admin Dose 110 MLS/HR; Start 11/01/16 at 13:00; Stop 11/05/16 at 13:59 YE CHO Nov 02, 2016 15:57
--- NOTE | 2016-11-02 16:27 | CONS ---
Date/Time of Note Date/Time of Note DATE: 11/02/16 TIME: 16:27 Assessment/Plan Assessment/Plan Chief Complaint/Hosp Course Assessment 1. Right lower quadrant inguinal pain. Patient noted to have abdominal CT that did show abnormal thickening of the wall involving the proximal ascending colon near the cecum most consistent with primary colonic neoplasm. Colonoscopy confirmed obstructing ascending colon mass. From my experience, it is most likely colon cancer. 2. Bilateral intrarenal calculi greater in the right lower pole without evidence of hydronephrosis. 3. Diverticular disease without diverticulitis. 4. Essential hypertension. We'll continue on antihypertensives and adjust as needed. Stable 5. Iron deficiency anemia likely secondary to colon cancer 6. Morbid obesity. Weight reduction advised. 7. Suspect UTI. Noted with lactobacillus species. Will follow up on final culture Recommendation: 1. again the lesion on colonoscopy appear c/w colon cancer. Needs oncology and surgery eval 2. pain control 3. continue IV iron replacement therapy Problems: Consultation Date/Type/Reason Admit Date/Time Oct 31, 2016 at 04:19 Initial Consult Date Type of Consultation: GI 24 HR Interval Summary Free Text/Dictation continues to have right sided abdominal pain Exam/Review of Systems Vital Signs Vitals Vital Signs Date Time Temp Pulse Resp B/P Pulse Ox O2 Delivery O2 Flow Rate FiO2 11/02/16 07:46 97.9 60 16 128/64 97 11/01/16 17:51 Room Air Intake and Output 11/01/16 11/01/16 11/02/16 15:00 23:00 07:00 Intake Total 110 ml 620 ml 480 ml Output Total 950 ml Balance 110 ml -330 ml 480 ml Exam Constitutional: alert, oriented, well developed Psych: nl mood/affect, no complaints Head: atraumatic, normocephalic Eyes: EOMI, nl conjunctiva, nl lids, nl sclera ENMT: mucosa pink and moist, nl external ears & nose, nl lips & teeth, nl nasal mucosa & septum Neck: non-tender, supple Respiratory: clear to auscultation, normal air movement Cardiovascular: nl pulses, regular rate and rhythm Gastrointestinal: bowel sounds, soft, tender (right sided) Results Result Diagram: 11/02/16 0413 11/02/16 0413 Results 24 hrs Laboratory Tests Test 11/02/16 04:13 Anion Gap 13 Basophils # 0.0 Basophils % 0.3 Blood Urea Nitrogen 8 Calcium Level 9.1 Carbon Dioxide Level 25 Chloride Level 106 Creatinine 0.80 Eosinophils # 0.3 Eosinophils % 3.0 Glucose Level 89 Hematocrit 26.6 L Hemoglobin 7.7 L Lymphocytes # 2.4 Lymphocytes % 25.1 Mean Corpuscular Hemoglobin 20.4 L Mean Corpuscular Hemoglobin Concent 28.9 L Mean Corpuscular Volume 70.4 L Mean Platelet Volume 8.6 Monocytes # 0.6 Monocytes % 6.6 Neutrophils # 6.3 Neutrophils % 64.7 Nucleated Red Blood Cells # 0.0 Nucleated Red Blood Cells % 0.0 Platelet Count 505 H Potassium Level 3.7 Red Blood Count 3.78 L Red Cell Distribution Width 19.9 H Sodium Level 140 White Blood Count 9.7 Medications Medications Current Medications Ondansetron HCl (Zofran Inj) 4 mg Q6H PRN IV NAUSEA AND/OR VOMITING Last administered on 10/31/16 11:29; Admin Dose 4 MG; Start 10/31/16 at 08:00 Acetaminophen (Tylenol Tab) 650 mg Q6H PRN PO PAIN LEVEL 1-3 OR FEVER; Start at 08:00 Morphine Sulfate (morphine) 3 mg Q4H PRN IV SEVERE PAIN LEVEL 7-10 Last administered on 10/31/16 23:03; Admin Dose 3 MG; Start 10/31/16 at 08:00 Famotidine (Pepcid) 20 mg Q12 PO Last administered on 11/02/16 08:31; Admin Dose 20 MG; Start 10/31/16 at 09:00 Ferrous Sulfate (Ferrous Sulfate (Ec)) 325 mg BID PO Last administered on 08:31; Admin Dose 325 MG; Start 10/31/16 at 09:00 Ascorbic Acid (Vitamin C) 500 mg DAILY PO Last administered on 11/02/16 08:31; Admin Dose 500 MG; Start 10/31/16 at 10:30 Aspirin (Aspirin) 81 mg DAILY PO Last administered on 11/02/16 08:31; Admin Dose 81 MG; Start 10/31/16 at 10:30 Atenolol (Tenormin) 50 mg BID NGT Last administered on 11/02/16 08:32; Admin Dose 50 MG; Start 10/31/16 at 10:30 Benazepril HCl (Lotensin) 10 mg BID PO Last administered on 11/02/16 08:32; Admin Dose 10 MG; Start 10/31/16 at 10:30 Diphenoxylate HCl/ Atropine (Lomotil) 1 tab Q6H PRN PO DIARRHEA; Start 10/31/16 at 10:30 Isosorbide Mononitrate (Imdur) 30 mg DAILY PO Last administered on 11/02/16 08: 33; Admin Dose 30 MG; Start 10/31/16 at 10:30 Verapamil HCl 240 mg 240 mg DAILY PO Last administered on 11/02/16 08:32; Admin Dose 240 MG; Start 10/31/16 at 10:30 Ferric Sodium Gluconate Complex/ Sodium Chloride (Ferrlecit/NS) 110 ml @ 110 mls/hr Q24H IVPB Last administered on 11/02/16 13:15; Admin Dose 110 MLS/HR; Start 11/01/16 at 13:00; Stop 11/05/16 at 13:59 CRISTI GODINEZ MD Nov 02, 2016 16:27
[2016-11-02 19:00] VITALS: BP 124/65; RESP 18
[2016-11-02] MEDS: morphine 2 MG INJ IV PRN (23:50)
[2016-11-03 06:37] LABS: ADD SCAN DIFF NO
[2016-11-03 06:59] LABS: BASOPHILS % 0.3 % (0.0-2.0); EOSINOPHILS # 0.2 10^3/ul (0.0-0.5); EOSINOPHILS % 2.5 % (0.0-7.0); HEMATOCRIT 25.2 % (37.0-47.0); HEMOGLOBIN 7.5 g/dl (12.0-16.0); LYMPHOCYTES % 30.6 % (15.0-51.0); MEAN CORPUSCULAR HEMOGLOBIN 20.8 pg (29.0-33.0); MEAN CORPUSCULAR HGB CONC 29.8 g/dl (32.0-37.0); MEAN PLATELET VOLUME 8.8 fl (7.4-10.4); MONOCYTE # 0.8 10^3/ul (0.3-0.9); MONOCYTES % 8.4 % (0.0-11.0); NEUTROPHIL # 5.6 10^3/ul (1.6-7.5); NEUTROPHILS % 57.8 % (39.0-77.0); PLATELET COUNT 474 10^3/UL (140-415); RED CELL DISTRIBUTION WIDTH 20.4 % (11.5-14.5); WHITE BLOOD COUNT 9.7 10^3/ul (4.8-10.8)
[2016-11-03 07:59] VITALS: BP 123/68; RESP 18
[2016-11-03 08:04] LABS: CREATININE 0.77 mg/dl (0.44-1.00)
[2016-11-03] MEDS: ASPIRIN 81 MG TAB PO SCH (09:00)
[2016-11-03] MEDS: ATENOLOL 50 MG TAB NGT SCH ×2 (09:01→21:31)
[2016-11-03] MEDS: FERROUS SULFATE (EC) 325 MG TAB PO SCH ×2 (09:01→21:31)
[2016-11-03] MEDS: BENAZEPRIL 10 MG TAB PO SCH ×2 (09:01→21:31)
[2016-11-03] MEDS: FAMOTIDINE 20 MG TAB PO SCH ×2 (09:01→21:31)
[2016-11-03] MEDS: VERAPAMIL (SR) 240 MG TAB PO SCH (09:01)
[2016-11-03] MEDS: ISOSORBIDE MONONITRATE(SR)30 MG TAB PO SCH (09:01)
[2016-11-03] MEDS: ASCORBIC ACID 500 MG TAB PO SCH (09:01)
[2016-11-03] MEDS: SOD FERRIC GLUC COMPLX 125 MG in SOD CHLORIDE 0.9% 100 ML IVPB SCH (13:28)
--- NOTE | 2016-11-03 13:34 | PN ---
Date/Time of Note Date/Time of Note DATE: 11/03/16 TIME: 13:31 Assessment/Plan VTE Prophylaxis VTE Prophylaxis Intervention: SCD's Lines/Catheters IV C[facility]ter Type [facility]from [facility] Saline Lock Urinary Cath still in place: No Assessment/Plan Chief Complaint/Hosp Course Assessment and plan 1. Right lower quadrant inguinal pain. Patient noted to have abdominal CT that did show abnormal thickening of the wall involving the proximal ascending colon near the cecum most consistent with primary colonic neoplasm. Surgeon and mold designer following.. Patient status post colonoscopy. Follow-up on pathology and biopsy. Continue with analgesics 2. Bilateral intrarenal calculi greater in the right lower pole without evidence of hydronephrosis. Appears stable at present. No active issue at this time 3. Diverticular disease without diverticulitis. Stable at present. Continue to monitor. Will provide analgesics as needed 4. Essential hypertension. We'll continue on antihypertensives and adjust as needed. Stable 5. Anemia. Follow-up on occult stool. Continue iron supplement 6. Morbid obesity. Weight reduction advised. 7. Suspect UTI. Noted with lactobacillus species. Will follow up on final culture Disposition and plan: Awaiting biopsy results from colonoscopy. Surgeon to follow. We'll await recommendations. Further recommendations per clinical course Discussed plan of care with Dr. Grimes Problems: Subjective 24 Hr Interval Summary Free Text/Dictation Still reports having some right lower quadrant abdominal pain. Reports discomfort with ambulation Exam/Review of Systems Vital Signs Vitals Vital Signs Date Time Temp Pulse Resp B/P Pulse Ox O2 Delivery O2 Flow Rate FiO2 11/03/16 07:59 98.1 62 18 123/68 96 11/01/16 17:51 Room Air Intake and Output 11/02/16 11/02/16 11/03/16 15:00 23:00 07:00 Intake Total 110 ml 680 ml Balance 110 ml 680 ml Exam General: Morbidly obese. Still having right lower quadrant abdominal pain Eyes: Pupils equal round. Neck: Supple nontender, no JVD Cardiac: S1-S2 auscultated, remains with a regular rate Pulmonary: Still no obvious wheezing or rhonchi today GI: drier and grinder tender on palpation of right lower quadrant abdominal Extremities: No obvious edema bilateral lower extremities today Skin: Remains clean dry and intact Neurologic: Alert and oriented 3 Results Result Diagram: 11/03/16 0454 11/03/16 0454 Results 24 hrs Laboratory Tests Test 11/03/16 04:54 Anion Gap 13 Basophils # 0.0 Basophils % 0.3 Blood Urea Nitrogen 11 Calcium Level 9.0 Carbon Dioxide Level 25 Chloride Level 105 Creatinine 0.77 Eosinophils # 0.2 Eosinophils % 2.5 Glucose Level 81 Hematocrit 25.2 L Hemoglobin 7.5 L Lymphocytes # 3.0 H Lymphocytes % 30.6 Mean Corpuscular Hemoglobin 20.8 L Mean Corpuscular Hemoglobin Concent 29.8 L Mean Corpuscular Volume 70.0 L Mean Platelet Volume 8.8 Monocytes # 0.8 Monocytes % 8.4 Neutrophils # 5.6 Neutrophils % 57.8 Nucleated Red Blood Cells # 0.0 Nucleated Red Blood Cells % 0.0 Platelet Count 474 H Potassium Level 4.0 Red Blood Count 3.60 L Red Cell Distribution Width 20.4 H Sodium Level 139 White Blood Count 9.7 Medications Medications Current Medications Ondansetron HCl (Zofran Inj) 4 mg Q6H PRN IV NAUSEA AND/OR VOMITING Last administered on 10/31/16 11:29; Admin Dose 4 MG; Start 10/31/16 at 08:00 Acetaminophen (Tylenol Tab) 650 mg Q6H PRN PO PAIN LEVEL 1-3 OR FEVER; Start at 08:00 Morphine Sulfate (morphine) 3 mg Q4H PRN IV SEVERE PAIN LEVEL 7-10 Last administered on 11/02/16 23:50; Admin Dose 3 MG; Start 10/31/16 at 08:00 Famotidine (Pepcid) 20 mg Q12 PO Last administered on 11/03/16 09:01; Admin Dose 20 MG; Start 10/31/16 at 09:00 Ferrous Sulfate (Ferrous Sulfate (Ec)) 325 mg BID PO Last administered on 09:01; Admin Dose 325 MG; Start 10/31/16 at 09:00 Ascorbic Acid (Vitamin C) 500 mg DAILY PO Last administered on 11/03/16 09:01; Admin Dose 500 MG; Start 10/31/16 at 10:30 Aspirin (Aspirin) 81 mg DAILY PO Last administered on 11/03/16 09:00; Admin Dose 81 MG; Start 10/31/16 at 10:30 Atenolol (Tenormin) 50 mg BID NGT Last administered on 11/03/16 09:01; Admin Dose 50 MG; Start 10/31/16 at 10:30 Benazepril HCl (Lotensin) 10 mg BID PO Last administered on 11/03/16 09:01; Admin Dose 10 MG; Start 10/31/16 at 10:30 Diphenoxylate HCl/ Atropine (Lomotil) 1 tab Q6H PRN PO DIARRHEA; Start 10/31/16 at 10:30 Isosorbide Mononitrate (Imdur) 30 mg DAILY PO Last administered on 11/03/16 09: 01; Admin Dose 30 MG; Start 10/31/16 at 10:30 Verapamil HCl 240 mg 240 mg DAILY PO Last administered on 11/03/16 09:01; Admin Dose 240 MG; Start 10/31/16 at 10:30 Ferric Sodium Gluconate Complex/ Sodium Chloride (Ferrlecit/NS) 110 ml @ 110 mls/hr Q24H IVPB Last administered on 11/03/16 13:28; Admin Dose 110 MLS/HR; Start 11/01/16 at 13:00; Stop 11/05/16 at 13:59 YE CHO Nov 03, 2016 13:34
[2016-11-03 19:40] VITALS: BP 124/60; RESP 16
--- NOTE | 2016-11-03 21:38 | CONS ---
Date/Time of Note Date/Time of Note DATE: 11/03/16 TIME: 21:37 Assessment/Plan Assessment/Plan Chief Complaint/Hosp Course Assessment 1. Right lower quadrant inguinal pain. Patient noted to have abdominal CT that did show abnormal thickening of the wall involving the proximal ascending colon near the cecum most consistent with primary colonic neoplasm. Colonoscopy confirmed obstructing ascending colon mass. From my experience, it is most likely colon cancer. 2. Bilateral intrarenal calculi greater in the right lower pole without evidence of hydronephrosis. 3. Diverticular disease without diverticulitis. 4. Essential hypertension. We'll continue on antihypertensives and adjust as needed. Stable 5. Iron deficiency anemia likely secondary to colon cancer 6. Morbid obesity. Weight reduction advised. 7. Suspect UTI. Noted with lactobacillus species. Will follow up on final culture Recommendation: 1. again the lesion on colonoscopy appear c/w colon cancer. Needs oncology and surgery eval 2. pain control 3. f/u biopsy results 4. continue IV iron replacement therapy Problems: Consultation Date/Type/Reason Admit Date/Time Oct 31, 2016 at 04:19 Type of Consultation: GI 24 HR Interval Summary Free Text/Dictation right lower quadrant abdominal pain. Reports discomfort with ambulation Exam/Review of Systems Vital Signs Vitals Vital Signs Date Time Temp Pulse Resp B/P Pulse Ox O2 Delivery O2 Flow Rate FiO2 11/03/16 19:40 98.5 68 16 124/60 96 11/01/16 17:51 Room Air Intake and Output 11/02/16 11/02/16 11/03/16 15:00 23:00 07:00 Intake Total 110 ml 680 ml Balance 110 ml 680 ml Exam Constitutional: alert, oriented, well developed Psych: nl mood/affect, no complaints Head: atraumatic, normocephalic Eyes: EOMI, nl conjunctiva, nl lids, nl sclera ENMT: mucosa pink and moist, nl external ears & nose, nl lips & teeth, nl nasal mucosa & septum Neck: non-tender, supple Respiratory: clear to auscultation, normal air movement Cardiovascular: nl pulses, regular rate and rhythm Gastrointestinal: bowel sounds, non-tender, soft Results Result Diagram: 11/03/16 0454 11/03/16 0454 Results 24 hrs Laboratory Tests Test 11/03/16 04:54 Anion Gap 13 Basophils # 0.0 Basophils % 0.3 Blood Urea Nitrogen 11 Calcium Level 9.0 Carbon Dioxide Level 25 Chloride Level 105 Creatinine 0.77 Eosinophils # 0.2 Eosinophils % 2.5 Glucose Level 81 Hematocrit 25.2 L Hemoglobin 7.5 L Lymphocytes # 3.0 H Lymphocytes % 30.6 Mean Corpuscular Hemoglobin 20.8 L Mean Corpuscular Hemoglobin Concent 29.8 L Mean Corpuscular Volume 70.0 L Mean Platelet Volume 8.8 Monocytes # 0.8 Monocytes % 8.4 Neutrophils # 5.6 Neutrophils % 57.8 Nucleated Red Blood Cells # 0.0 Nucleated Red Blood Cells % 0.0 Platelet Count 474 H Potassium Level 4.0 Red Blood Count 3.60 L Red Cell Distribution Width 20.4 H Sodium Level 139 White Blood Count 9.7 Medications Medications Current Medications Ondansetron HCl (Zofran Inj) 4 mg Q6H PRN IV NAUSEA AND/OR VOMITING Last administered on 10/31/16 11:29; Admin Dose 4 MG; Start 10/31/16 at 08:00 Acetaminophen (Tylenol Tab) 650 mg Q6H PRN PO PAIN LEVEL 1-3 OR FEVER; Start at 08:00 Morphine Sulfate (morphine) 3 mg Q4H PRN IV SEVERE PAIN LEVEL 7-10 Last administered on 11/02/16 23:50; Admin Dose 3 MG; Start 10/31/16 at 08:00 Famotidine (Pepcid) 20 mg Q12 PO Last administered on 11/03/16 09:01; Admin Dose 20 MG; Start 10/31/16 at 09:00 Ferrous Sulfate (Ferrous Sulfate (Ec)) 325 mg BID PO Last administered on 09:01; Admin Dose 325 MG; Start 10/31/16 at 09:00 Ascorbic Acid (Vitamin C) 500 mg DAILY PO Last administered on 11/03/16 09:01; Admin Dose 500 MG; Start 10/31/16 at 10:30 Aspirin (Aspirin) 81 mg DAILY PO Last administered on 11/03/16 09:00; Admin Dose 81 MG; Start 10/31/16 at 10:30 Atenolol (Tenormin) 50 mg BID NGT Last administered on 11/03/16 09:01; Admin Dose 50 MG; Start 10/31/16 at 10:30 Benazepril HCl (Lotensin) 10 mg BID PO Last administered on 11/03/16 09:01; Admin Dose 10 MG; Start 10/31/16 at 10:30 Diphenoxylate HCl/ Atropine (Lomotil) 1 tab Q6H PRN PO DIARRHEA; Start 10/31/16 at 10:30 Isosorbide Mononitrate (Imdur) 30 mg DAILY PO Last administered on 11/03/16 09: 01; Admin Dose 30 MG; Start 10/31/16 at 10:30 Verapamil HCl 240 mg 240 mg DAILY PO Last administered on 11/03/16 09:01; Admin Dose 240 MG; Start 10/31/16 at 10:30 Ferric Sodium Gluconate Complex/ Sodium Chloride (Ferrlecit/NS) 110 ml @ 110 mls/hr Q24H IVPB Last administered on 11/03/16 13:28; Admin Dose 110 MLS/HR; Start 11/01/16 at 13:00; Stop 11/05/16 at 13:59 CRISTI GODINEZ MD Nov 03, 2016 21:37
--- NOTE | 2016-11-03 23:11 | PN ---
Date/Time of Note Date/Time of Note DATE: 11/02/16 TIME: 23:05 Assessment/Plan Lines/Catheters IV C[facility] Type ([facility] Saline Lock Kowalski in Place (from [facility]): No Assessment/Plan Chief Complaint/Hosp Course 1. Ascending colon lesion with lymph nodes s/p Colonoscopy 11/01 with narrowing > still having bowel functions. -await path -will need eventual resection 2. Hemorrhoids, uninflamed currently. 3. History of rectal bleed, possibly secondary to hemorrhoids or findings on CT scan in the colon. Workup in process. -await path -monitor h/h 4. Anemia secondary to above. Transfuse as needed and workup in process. 5. Morbid obesity. The patient is highly encouraged to continue her nutritional optimization and exercise. 6. Hypertension. Continue diet and medication control and encourage weight loss. 7. Congestive heart failure history. Continue judicious fluid management and cardiac optimization. 8. Asthma history. Continue medical optimization. Encourage weight loss. 9. Possible urinary tract infection. Continue antibiotics. 10. Thrombocytosis secondary to CT findings probably. Workup as above. 11. Diverticulosis. Continue encourage nutritional and lifestyle optimization. 12. Abdominal pain, right lower quadrant, probably secondary to findings on CT scan. Workup and treatment as above. Consider antibiotics. Thank you Late entry 11/02 Problems: Subjective 24 Hr Interval Summary s/p Colonoscopy 11/01 with narrowing. No fever or chills. No cp or sob. No cough. No sparrow. Min pain. No dizziness, visual or neuro changes. No dysuria. Bowel function. Exam/Review of Systems Vital Signs Vitals Vital Signs Date Time Temp Pulse Resp B/P Pulse Ox O2 Delivery O2 Flow Rate FiO2 11/03/16 19:40 98.5 68 16 124/60 96 11/01/16 17:51 Room Air Intake and Output 11/02/16 11/02/16 11/03/16 15:00 23:00 07:00 Intake Total 110 ml 680 ml Balance 110 ml 680 ml Exam Free Text/Dictation GENERAL: No acute distress. Morbidly obese. PSYCHIATRIC: Flat affect. HEENT: Pupils equal, reactive. No scleral icterus. Mucous membranes are somewhat moist. NECK: Supple. No JVD. PULMONARY: Normal respiratory effort. No wheezing. CARDIAC: S1, S2 present. ABDOMEN: Soft, obese, minimally tender in right lower quadrant. No rebound, no guarding, not rigid. EXTREMITIES: No edema. VASCULAR: Cap refill less than 2 seconds. NEUROLOGIC: Alert, oriented, moves all 4 extremities grossly. LYMPHATICS: No inguinal, cervical, periauricular, or clavicular palpable lymph nodes. RECTAL: No masses, lesions, or induration. Small hemorrhoids. No blood. Small stool. Results Result Diagram: 11/03/16 0454 11/03/16 0454 SACHIN MALAVE MD Nov 03, 2016 23:11
--- NOTE | 2016-11-03 23:12 | PN ---
Date/Time of Note Date/Time of Note DATE: 11/03/16 TIME: 23:11 Assessment/Plan Lines/Catheters IV Catheter Type (from [facility]): Saline Lock Kowalski in Place (from [facility]): No Assessment/Plan Chief Complaint/Hosp Course 1. Ascending colon lesion with lymph nodes s/p Colonoscopy 11/01 with narrowing > still having bowel functions. -await path -will need eventual resection 2. Hemorrhoids, uninflamed currently. 3. History of rectal bleed, possibly secondary to hemorrhoids or findings on CT scan in the colon. Workup in process. -await path -monitor h/h 4. Anemia secondary to above. Transfuse as needed and workup in process. 5. Morbid obesity. The patient is highly encouraged to continue her nutritional optimization and exercise. 6. Hypertension. Continue diet and medication control and encourage weight loss. 7. Congestive heart failure history. Continue judicious fluid management and cardiac optimization. 8. Asthma history. Continue medical optimization. Encourage weight loss. 9. Possible urinary tract infection. Continue antibiotics. 10. Thrombocytosis secondary to CT findings probably. Workup as above. 11. Diverticulosis. Continue encourage nutritional and lifestyle optimization. 12. Abdominal pain, right lower quadrant, probably secondary to findings on CT scan. Workup and treatment as above. Thank you, Problems: Subjective 24 Hr Interval Summary s/p Colonoscopy 11/01 with narrowing. No fever or chills. No cp or sob. No cough. No sparrow. Min pain. No dizziness, visual or neuro changes. No dysuria. Bowel function. Exam/Review of Systems Vital Signs Vitals Vital Signs Date Time Temp Pulse Resp B/P Pulse Ox O2 Delivery O2 Flow Rate FiO2 11/03/16 19:40 98.5 68 16 124/60 96 11/01/16 17:51 Room Air Intake and Output 11/02/16 11/02/16 11/03/16 15:00 23:00 07:00 Intake Total 110 ml 680 ml Balance 110 ml 680 ml Exam Free Text/Dictation GENERAL: No acute distress. Morbidly obese. PSYCHIATRIC: Flat affect. HEENT: Pupils equal, reactive. No scleral icterus. Mucous membranes are somewhat moist. NECK: Supple. No JVD. PULMONARY: Normal respiratory effort. No wheezing. CARDIAC: S1, S2 present. ABDOMEN: Soft, obese, minimally tender in right lower quadrant. No rebound, no guarding, not rigid. EXTREMITIES: No edema. VASCULAR: Cap refill less than 2 seconds. NEUROLOGIC: Alert, oriented, moves all 4 extremities grossly. LYMPHATICS: No inguinal, cervical, periauricular, or clavicular palpable lymph nodes. RECTAL: No masses, lesions, or induration. Small hemorrhoids. No blood. Results Result Diagram: 11/03/16 0454 11/03/16 0454 SACHIN MALAVE MD Nov 03, 2016 23:12
[2016-11-04 05:20] LABS: ADD SCAN DIFF NO
[2016-11-04 05:36] LABS: BASOPHILS % 0.2 % (0.0-2.0); EOSINOPHILS # 0.3 10^3/ul (0.0-0.5); EOSINOPHILS % 3.1 % (0.0-7.0); HEMATOCRIT 27.3 % (37.0-47.0); LYMPHOCYTES # 2.8 10^3/ul (0.8-2.9); MEAN CORPUSCULAR HEMOGLOBIN 20.7 pg (29.0-33.0); MEAN CORPUSCULAR HGB CONC 29.3 g/dl (32.0-37.0); MEAN CORPUSCULAR VOLUME 70.5 fl (82.0-101.0); MEAN PLATELET VOLUME 8.6 fl (7.4-10.4); MONOCYTE # 0.8 10^3/ul (0.3-0.9); MONOCYTES % 7.1 % (0.0-11.0); NEUTROPHIL # 7.1 10^3/ul (1.6-7.5); NEUTROPHILS % 64.1 % (39.0-77.0); PLATELET COUNT 521 10^3/UL (140-415); RED BLOOD COUNT 3.87 10^6/ul (4.20-5.40); RED CELL DISTRIBUTION WIDTH 20.8 % (11.5-14.5)
[2016-11-04 05:51] LABS: POTASSIUM 4.2 mmol/L (3.5-5.1)
[2016-11-04 05:54] LABS: CALCIUM 9.3 mg/dl (8.4-10.2); CREATININE 0.86 mg/dl (0.44-1.00)
[2016-11-04 07:55] VITALS: BP 133/84; RESP 18
[2016-11-04] MEDS: FERROUS SULFATE (EC) 325 MG TAB PO SCH ×2 (08:58→20:41)
[2016-11-04] MEDS: FAMOTIDINE 20 MG TAB PO SCH ×2 (08:58→20:41)
[2016-11-04] MEDS: ATENOLOL 50 MG TAB NGT SCH ×2 (08:59→20:42)
[2016-11-04] MEDS: ASCORBIC ACID 500 MG TAB PO SCH (08:59)
[2016-11-04] MEDS: ASPIRIN 81 MG TAB PO SCH (08:59)
[2016-11-04] MEDS: VERAPAMIL (SR) 240 MG TAB PO SCH (08:59)
[2016-11-04] MEDS: ISOSORBIDE MONONITRATE(SR)30 MG TAB PO SCH (09:00)
[2016-11-04] MEDS: BENAZEPRIL 10 MG TAB PO SCH ×2 (09:00→20:43)
--- NOTE | 2016-11-04 11:03 | PN ---
DATE: 11/04/2016 TIME OF EVALUATION: 9:30 a.m. SUBJECTIVE DATA: Complains of diarrhea. Abdominal pain well controlled. Able to tolerate a regular consistency diet. OBJECTIVE DATA: VITAL SIGNS: Temperature 98.0, pulse rate 60, respiratory rate 18, blood pressure 133/84, oxygen saturation 97% on room air. GENERAL: This is an obese female lying in bed in no apparent distress. HEENT: Normocephalic and atraumatic. Eyes: Anicteric sclerae. Conjunctivae clear. ENT: Nasal septum is midline. Oral mucosa is moist. NECK: Supple. No JVD noticed. RESPIRATORY: Bilaterally clear to auscultation. No adventitious breath sounds heard. No use of accessory muscles of respiration. CARDIAC: Regular rate and rhythm. S1 and S2 heard. ABDOMEN: Soft, nontender and nondistended. Bowel sounds positive in all 4 quadrants. GENITOURINARY: Deferred. EXTREMITIES: No cyanosis, no clubbing, no edema. Peripheral pulses are palpable. NEUROLOGIC: The patient is awake, alert and oriented. Cranial nerves are grossly intact. LABORATORY AND DIAGNOSTIC DATA: WBC 11.0, hemoglobin 8.0, hematocrit 27.2, platelet count 521. Sodium 139, potassium 4.0, chloride 104, carbon dioxide 25 , anion gap 14, BUN 11, creatinine 0.86, glucose 94, calcium 9.3. ASSESSMENT AND PLAN: 1. Ascending colon lesions with associated lymph node enlargement. Status post colonoscopy and biopsy. Pending biopsy results. 2. Microcytic hypochromic anemia. Most probably secondary to underlying rectal bleed and also from iron deficiency. Transfuse blood products as needed. Continue iron supplements. 3. Paroxysmal supraventricular tachycardia. Continue the patient on beta blockers and verapamil. Cardiology to evaluate the patient. 4. Essential hypertension. Continue antihypertensives. 5. Urinary tract infection. Urine culture positive for lactobacillus species as colony count greater than 100,000 units per mL. Will start the patient on appropriate antibiotics. 6. Morbid obesity. Weight reduction will be advised. 7. Fluid, electrolytes and nutrition. Continue gluten-free diet. 8. Deep venous thrombosis prophylaxis. Bilateral sequential compression devices. 9. Gastrointestinal prophylaxis with histamine 2 receptor blockers. PLAN: We will await biopsy results. We will obtain a cardiology evaluation. We will obtain a 12-lead EKGs for evaluating the baseline rhythm. Case discussed with Dr. Shrap. JONH SHARP MD, AM/TONIA Conf#: [id number] DID#: [id number] MTDMable
[2016-11-04] MEDS: CIPROFLOXACIN 500 MG TAB PO SCH ×2 (11:26→18:12)
[2016-11-04] MEDS: SOD FERRIC GLUC COMPLX 125 MG in SOD CHLORIDE 0.9% 100 ML IVPB SCH (13:56)
--- NOTE | 2016-11-04 17:58 | RADRPT ---
Vent Rate: 65 bpm RR Interval: 0 msec SC Interval: 152 msec QRS Duration: 108 msec QT Interval: 450 msec QTC Interval: 468 msec P-R-T Maud: 30 - 29 - 52 degrees Normal sinus rhythm Normal ECG Electronically Signed By: Tapan Cleary [id number]
[2016-11-04 19:45] VITALS: BP 115/57; RESP 20
--- NOTE | 2016-11-04 20:35 | CONS ---
DATE OF ADMISSION: 10/31/2016 DATE OF CONSULTATION: 11/04/2016 TYPE OF CONSULTATION: Cardiology. REASON FOR CONSULTATION: Preoperative evaluation prior to resection of colon mass. REQUESTING PHYSICIAN: Dr. Terry from the hospitalist service and Amilcar Craig from the hospitalist service. HISTORY OF PRESENT ILLNESS: Ms. 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 The patient was admitted to the hospital and in workup underwent a colonoscopy revealing a friable, fungating mass in ascending colon and obstructed lumen. Additional ly, the patient had abdominal and pelvic CT that had revealed abnormal thickening of the wall involv ing the proximal ascending colon near the cecum most consistent with primary colonic neoplasm, bilat eral ____ calculi, fat-containing right paracentral supraumbilical ventral hernia, mild hepatomegaly . The patient's electrocardiogram: Normal sinus rhythm, rate of 65, normal axis, normal intervals, nonspecific ST-T abnormalities. The patient at this time denies chest pain, shortness of breath. States she has mild abdominal pain. PAST MEDICAL HISTORY: As above in HPI with the patient undergoing a 2D echo 10/17/2015, at that carolee e having a preserved left ventricular ejection fraction of 55% to 60% with left ventricular diastoli c dysfunction, trace mitral and tricuspid regurgitation. MEDICATIONS CURRENTLY IN HOSPITAL: 1. Ciprofloxacin. 2. Albuterol. 3. DuoNebs. 4. Vitamin C. 5. Atenolol 50 mg p.o. b.i.d. 6. Benazepril 10 mg b.i.d. 7. Lomotil. 8. Imdur 30 mg daily. 9. Verapamil 240 mg daily. 10. Pepcid 20 mg q.12. 11. Ferrous sulfate 320 mg p.o. b.i.d. 12. Tylenol p.r.n. 13. Morphine p.r.n. ALLERGIES: NO KNOWN DRUG ALLERGIES. SOCIAL HISTORY: No tobacco, ETOH, illicit drug use. FAMILY HISTORY: Negative for sudden cardiac or early CAD. REVIEW OF SYSTEMS: As above in HPI. CONSTITUTIONAL: No fevers, chills. PULMONARY: No current shortness of breath. CARDIOVASCULAR: No current chest pain, no palpitations, no shortness of breath. GASTROINTESTINAL: Abdominal pain. GENITOURINARY: No hematuria. MUSCULOSKELETAL: Degenerative joint disease. PHYSICAL EXAMINATION: VITAL SIGNS: Temperature of 98, blood pressure 133/84, pulse 66, respiratory rate 18, satting 97%. GENERAL: The patient is alert, awake, complaining of mild abdominal discomfort. NECK: JVP approximately 8 to 9 cm water. CHEST: Fair air movement throughout. HEART: Regular rate and rhythm. Normal S1, S2. I/ systolic murmur. Nondisplaced PMI. ABDOMEN: Obese, soft. EXTREMITIES: No pitting edema. Pulses 1+ bilaterally at posterior tibial. LABORATORIES: As above in HPI with most recent from today: White count 11.0, hemoglobin 8.0, MCV o f 70.5, platelet count of 521. Sodium 139, potassium 4.2, creatinine 0.86. INR 1.0. UA borderline . Stool occult blood positive. IMAGING STUDIES: As above in HPI. No further imaging studies for my review at this time. IMPRESSION: 1. Preoperative evaluation prior to surgical resection of colonic neoplasm. 2. History of supraventricular tachyarrhythmia, question arterioventricular node re-entry tachycard ia. 3. Hypertension, under reasonable control. 4. Colonic mass consistent with colonic neoplasm, colon carcinoma. 5. Abdominal pain secondary to abdominal mass. 6. Asthma. 7. Urinary tract infection. 8. Anemia. RECOMMENDATIONS: 1. At this time would maintain the patient on her current beta leonardo and verapamil to control hea rt rate, additionally continue the patient's benazepril for control of blood pressure and Imdur for antianginal effects. 2. Will send troponins q.6 x3 to assure that the patient has not had any recent coronary syndromes lending to EKG abnormalities and will check repeat EKG in the morning to assess for any significant changes. 3. If patient does have no significant changes by EKG and does rule out with troponins negative x3, then at that time believe the patient will be without cardiac contraindication to proceeding to OR for resection of colonic neoplasm on current medications including beta leonardo and calcium channel leonardo for heart rate control without further noninvasive evaluation. Postoperatively would check a 12-lead EKG, assess for any significant changes and watch closely for signs, symptoms of cardiovas cular complications including but not limited to the onset of chest pain, shortness of breath, uncon trolled cardiac arrhythmias or congestive heart failure. Thank you for allowing me to take part in the care of this patient. I will continue to follow along very closely with you with further recommendations to be made as the patient progresses through her inpatient hospital clinical course. Dictated By: ANDRA NEAL MD JH/TONIA Conf#: [id number] DID#: [id number] CC: AMILCAR CRAIG [employer]; KATIE TERRY MD;*EndCC*
--- NOTE | 2016-11-04 21:21 | CONS ---
Date/Time of Note Date/Time of Note DATE: 11/04/16 TIME: 21:19 Assessment/Plan Assessment/Plan Chief Complaint/Hosp Course Assessment 1. Right lower quadrant inguinal pain. Patient noted to have abdominal CT that did show abnormal thickening of the wall involving the proximal ascending colon near the cecum most consistent with primary colonic neoplasm. Colonoscopy confirmed obstructing ascending colon mass. biopsy showed poorly differentiated adenoCA. 2. Bilateral intrarenal calculi greater in the right lower pole without evidence of hydronephrosis. 3. Diverticular disease without diverticulitis. 4. Essential hypertension. We'll continue on antihypertensives and adjust as needed. Stable 5. Iron deficiency anemia likely secondary to colon cancer 6. Morbid obesity. Weight reduction advised. 7. Suspect UTI. Noted with lactobacillus species. Will follow up on final culture Recommendation: 1. Needs oncology and surgery eval 2. pain control 3. f/u biopsy results 4. continue IV iron replacement therapy 5. Dr. Hdez to resume care tomorrow. Problems: Consultation Date/Type/Reason Admit Date/Time Oct 31, 2016 at 04:19 Type of Consultation: GI 24 HR Interval Summary Free Text/Dictation Complains of diarrhea. Abdominal pain well controlled. Able to tolerate a regular consistency diet. biopsy showed poorly differentiated adenoCA. Exam/Review of Systems Vital Signs Vitals Vital Signs Date Time Temp Pulse Resp B/P Pulse Ox O2 Delivery O2 Flow Rate FiO2 11/04/16 19:45 98.4 60 20 115/57 100 11/01/16 17:51 Room Air Intake and Output 11/03/16 11/03/16 11/04/16 15:00 23:00 07:00 Intake Total 110 ml 960 ml 1090 ml Output Total 1400 ml Balance 110 ml 960 ml -310 ml Exam Constitutional: alert, oriented, well developed Psych: nl mood/affect, no complaints Head: normocephalic Eyes: EOMI, nl conjunctiva, nl lids, nl sclera ENMT: nl external ears & nose, nl lips & teeth, nl nasal mucosa & septum Neck: non-tender, supple Respiratory: clear to auscultation, normal air movement Cardiovascular: nl pulses, regular rate and rhythm Gastrointestinal: bowel sounds, soft, tender (right sided tenderness) Results Result Diagram: 11/04/162 11/04/162 Results 24 hrs Laboratory Tests Test 11/04/16 04:42 11/04/16 18:20 Anion Gap 14 Basophils # 0.0 Basophils % 0.2 Blood Urea Nitrogen 11 Calcium Level 9.3 Carbon Dioxide Level 25 Chloride Level 104 Creatinine 0.86 Eosinophils # 0.3 Eosinophils % 3.1 Glucose Level 94 Hematocrit 27.3 L Hemoglobin 8.0 L Lymphocytes # 2.8 Lymphocytes % 25.0 Mean Corpuscular Hemoglobin 20.7 L Mean Corpuscular Hemoglobin Concent 29.3 L Mean Corpuscular Volume 70.5 L Mean Platelet Volume 8.6 Monocytes # 0.8 Monocytes % 7.1 Neutrophils # 7.1 Neutrophils % 64.1 Nucleated Red Blood Cells # 0.0 Nucleated Red Blood Cells % 0.0 Platelet Count 521 H Potassium Level 4.2 Red Blood Count 3.87 L Red Cell Distribution Width 20.8 H Sodium Level 139 White Blood Count 11.0 H Troponin I < 0.012 Medications Medications Current Medications Ondansetron HCl (Zofran Inj) 4 mg Q6H PRN IV NAUSEA AND/OR VOMITING Last administered on 10/31/16 11:29; Admin Dose 4 MG; Start 10/31/16 at 08:00 Acetaminophen (Tylenol Tab) 650 mg Q6H PRN PO PAIN LEVEL 1-3 OR FEVER; Start at 08:00 Morphine Sulfate (morphine) 3 mg Q4H PRN IV SEVERE PAIN LEVEL 7-10 Last administered on 11/02/16 23:50; Admin Dose 3 MG; Start 10/31/16 at 08:00 Famotidine (Pepcid) 20 mg Q12 PO Last administered on 11/04/16 20:41; Admin Dose 20 MG; Start 10/31/16 at 09:00 Ferrous Sulfate (Ferrous Sulfate (Ec)) 325 mg BID PO Last administered on 20:41; Admin Dose 325 MG; Start 10/31/16 at 09:00 Ascorbic Acid (Vitamin C) 500 mg DAILY PO Last administered on 11/04/16 08:59; Admin Dose 500 MG; Start 10/31/16 at 10:30 Atenolol (Tenormin) 50 mg BID NGT Last administered on 11/04/16 20:42; Admin Dose 50 MG; Start 10/31/16 at 10:30 Benazepril HCl (Lotensin) 10 mg BID PO Last administered on 11/04/16 09:00; Admin Dose 10 MG; Start 10/31/16 at 10:30 Diphenoxylate HCl/ Atropine (Lomotil) 1 tab Q6H PRN PO DIARRHEA; Start 10/31/16 at 10:30 Isosorbide Mononitrate (Imdur) 30 mg DAILY PO Last administered on 11/04/16 09: 00; Admin Dose 30 MG; Start 10/31/16 at 10:30 Verapamil HCl 240 mg 240 mg DAILY PO Last administered on 11/04/16 08:59; Admin Dose 240 MG; Start 10/31/16 at 10:30 Ferric Sodium Gluconate Complex/ Sodium Chloride (Ferrlecit/NS) 110 ml @ 110 mls/hr Q24H IVPB Last administered on 11/04/16 13:56; Admin Dose 110 MLS/HR; Start 11/01/16 at 13:00; Stop 11/05/16 at 13:59 Ciprofloxacin (Cipro) 500 mg BID@06,18 PO Last administered on 11/04/16 18:12; Admin Dose 500 MG; Start 11/04/16 at 10:15 CRISTI GODINEZ MD Nov 04, 2016 21:21
--- NOTE | 2016-11-04 23:07 | PN ---
Date/Time of Note Date/Time of Note DATE: 11/04/16 TIME: 23:06 Assessment/Plan Lines/Catheters IV C[facility]ter Type (from [facility]): Saline Lock Kow[facility]ki in Place (from [facility]): No Assessment/Plan Chief Complaint/Hosp Course 1. Ascending colon lesion with lymph nodes s/p Colonoscopy / with narrowing > still having bowel functions. -await path -will need eventual resection 2. Hemorrhoids, uninflamed currently. 3. History of rectal bleed, possibly secondary to hemorrhoids or findings on CT scan in the colon. Workup in process. -await path -monitor h/h 4. Anemia secondary to above. Transfuse as needed and workup in process. 5. Morbid obesity. The patient is highly encouraged to continue her nutritional optimization and exercise. 6. Hypertension. Continue diet and medication control and encourage weight loss. 7. Congestive heart failure history. Continue judicious fluid management and cardiac optimization. 8. Asthma history. Continue medical optimization. Encourage weight loss. 9. Possible urinary tract infection. Continue antibiotics. 10. Thrombocytosis secondary to CT findings probably. Workup as above. 11. Diverticulosis. Continue encourage nutritional and lifestyle optimization. 12. Abdominal pain, right lower quadrant, probably secondary to findings on CT scan. Workup and treatment as above. Thank you, Problems: Subjective 24 Hr Interval Summary s/p Colonoscopy 11/01 with narrowing. No fever or chills. No cp or sob. No cough. No sparrow. Min pain. No dizziness, visual or neuro changes. No dysuria. Bowel function. Exam/Review of Systems Vital Signs Vitals Vital Signs Date Time Temp Pulse Resp B/P Pulse Ox O2 Delivery O2 Flow Rate FiO2 11/04/16 19:45 98.4 60 20 115/57 100 11/01/16 17:51 Room Air Intake and Output 11/03/16 11/03/16 11/04/16 15:00 23:00 07:00 Intake Total 110 ml 960 ml 1090 ml Output Total 1400 ml Balance 110 ml 960 ml -310 ml Exam Free Text/Dictation GENERAL: No acute distress. Morbidly obese. PSYCHIATRIC: Flat affect. HEENT: Pupils equal, reactive. No scleral icterus. Mucous membranes are somewhat moist. NECK: Supple. No JVD. PULMONARY: Normal respiratory effort. No wheezing. CARDIAC: S1, S2 present. ABDOMEN: Soft, obese, minimally tender in right lower quadrant. No rebound, no guarding, not rigid. EXTREMITIES: No edema. VASCULAR: Cap refill less than 2 seconds. NEUROLOGIC: Alert, oriented, moves all 4 extremities grossly. LYMPHATICS: No inguinal, cervical, periauricular, or clavicular palpable lymph nodes. RECTAL: No masses, lesions, or induration. Small hemorrhoids. No blood. Results Result Diagram: 11/04/16 0442 11/04/16 0442 SACHIN MALAVE MD Nov 04, 2016 23:07
[2016-11-05 05:38] LABS: ADD SCAN DIFF NO
[2016-11-05] MEDS: CIPROFLOXACIN 500 MG TAB PO SCH ×2 (05:54→17:26)
[2016-11-05 05:55] LABS: ABNORMAL IP MESSAGE 1; BASOPHILS % 0.3 % (0.0-2.0); EOSINOPHILS # 0.3 10^3/ul (0.0-0.5); EOSINOPHILS % 2.9 % (0.0-7.0); HEMOGLOBIN 8.1 g/dl (12.0-16.0); LYMPHOCYTES # 2.6 10^3/ul (0.8-2.9); LYMPHOCYTES % 24.2 % (15.0-51.0); MEAN CORPUSCULAR HEMOGLOBIN 20.7 pg (29.0-33.0); MEAN CORPUSCULAR HGB CONC 28.9 g/dl (32.0-37.0); MEAN CORPUSCULAR VOLUME 71.4 fl (82.0-101.0); MEAN PLATELET VOLUME 8.6 fl (7.4-10.4); MONOCYTE # 0.9 10^3/ul (0.3-0.9); MONOCYTES % 8.1 % (0.0-11.0); PLATELET COUNT 505 10^3/UL (140-415); RED BLOOD COUNT 3.92 10^6/ul (4.20-5.40); WHITE BLOOD COUNT 10.9 10^3/ul (4.8-10.8)
[2016-11-05 06:10] LABS: PHOSPHORUS 4.3 mg/dl (2.5-4.9)
[2016-11-05 06:12] LABS: POTASSIUM 3.9 mmol/L (3.5-5.1)
[2016-11-05 06:14] LABS: CREATININE 0.9 mg/dl (0.44-1.00)
[2016-11-05 06:15] LABS: CALCIUM 9.5 mg/dl (8.4-10.2)
--- NOTE | 2016-11-05 07:24 | PN ---
Date/Time of Note Date/Time of Note DATE: 11/05/16 TIME: 07:23 Assessment/Plan VTE Prophylaxis VTE Prophylaxis Intervention: SCD's Lines/Catheters IV C[facility] Type (from [facility]): Saline Lock Urinary Cath still in place: No Assessment/Plan Chief Complaint/Hosp Course 1. 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 Newly diagnosed. Oncology and surgery on board. 2. Microcytic hypochromic anemia. Most probably secondary to underlying rectal bleed and also from iron deficiency. Transfuse blood products as needed. Continue iron supplements. 3. Paroxysmal supraventricular tachycardia. Continue the patient on beta blockers and verapamil. Cardiology following. 4. Essential hypertension. Continue antihypertensives. 5. Urinary tract infection. Urine culture positive for lactobacillus species as colony count greater than 100,000 units per mL. Continue antibiotics. 6. Morbid obesity. Weight reduction will be advised. 7. Fluid, electrolytes and nutrition. Continue gluten-free diet. 8. Deep venous thrombosis prophylaxis. Bilateral sequential compression devices. 9. Gastrointestinal prophylaxis with histamine 2 receptor blockers. PLAN: Await oncology recommendations. Case discussed with Dr. Calvo. Problems: Subjective 24 Hr Interval Summary Free Text/Dictation Vital signs stable. Denies any diarrhea. Exam/Review of Systems Vital Signs Vitals Vital Signs Date Time Temp Pulse Resp B/P Pulse Ox O2 Delivery O2 Flow Rate FiO2 11/04/16 19:45 98.4 60 20 115/57 100 11/01/16 17:51 Room Air Intake and Output 11/04/16 11/04/16 11/05/16 15:00 23:00 07:00 Intake Total 1010 ml 920 ml Output Total 1700 ml 1500 ml Balance -690 ml -580 ml Exam GENERAL: This is an obese female lying in bed in no apparent distress. HEENT: Normocephalic and atraumatic. Eyes: Anicteric sclerae. Conjunctivae clear. ENT: Nasal septum is midline. Oral mucosa is moist. NECK: Supple. No JVD noticed. RESPIRATORY: Bilaterally clear to auscultation. No adventitious breath sounds heard. No use of accessory muscles of respiration. CARDIAC: Regular rate and rhythm. S1 and S2 heard. ABDOMEN: Soft, nontender and nondistended. Bowel sounds positive in all 4 quadrants. GENITOURINARY: Deferred. EXTREMITIES: No cyanosis, no clubbing, no edema. Peripheral pulses are palpable. NEUROLOGIC: The patient is awake, alert and oriented. Cranial nerves are grossly intact. Results Result Diagram: 11/05/16 0444 11/05/16 0444 Results 24 hrs Laboratory Tests Test 11/04/16 18:20 11/05/16 00:25 11/05/16 04:40 11/05/16 04:44 Troponin I < 0.012 < 0.012 Magnesium Level 2.0 Phosphorus Level 4.3 Anion Gap 15 Basophils # 0.0 Basophils % 0.3 Blood Urea Nitrogen 12 Calcium Level 9.5 Carbon Dioxide Level 26 Chloride Level 105 Creatinine 0.90 Eosinophils # 0.3 Eosinophils % 2.9 Glucose Level 116 Hematocrit 28.0 L Hemoglobin 8.1 L Lymphocytes # 2.6 Lymphocytes % 24.2 Mean Corpuscular Hemoglobin 20.7 L Mean Corpuscular Hemoglobin Concent 28.9 L Mean Corpuscular Volume 71.4 L Mean Platelet Volume 8.6 Monocytes # 0.9 Monocytes % 8.1 Neutrophils # 7.0 Neutrophils % 64.0 Nucleated Red Blood Cells # 0.0 Nucleated Red Blood Cells % 0.0 Platelet Count 505 H Potassium Level 3.9 Red Blood Count 3.92 L Red Cell Distribution Width 22.0 H Sodium Level 142 White Blood Count 10.9 H Medications Medications Current Medications Ondansetron HCl (Zofran Inj) 4 mg Q6H PRN IV NAUSEA AND/OR VOMITING Last administered on 10/31/16 11:29; Admin Dose 4 MG; Start 10/31/16 at 08:00 Acetaminophen (Tylenol Tab) 650 mg Q6H PRN PO PAIN LEVEL 1-3 OR FEVER; Start at 08:00 Morphine Sulfate (morphine) 3 mg Q4H PRN IV SEVERE PAIN LEVEL 7-10 Last administered on 11/02/16 23:50; Admin Dose 3 MG; Start 10/31/16 at 08:00 Famotidine (Pepcid) 20 mg Q12 PO Last administered on 11/04/16 20:41; Admin Dose 20 MG; Start 10/31/16 at 09:00 Ferrous Sulfate (Ferrous Sulfate (Ec)) 325 mg BID PO Last administered on 20:41; Admin Dose 325 MG; Start 10/31/16 at 09:00 Ascorbic Acid (Vitamin C) 500 mg DAILY PO Last administered on 11/04/16 08:59; Admin Dose 500 MG; Start 10/31/16 at 10:30 Atenolol (Tenormin) 50 mg BID NGT Last administered on 11/04/16 20:42; Admin Dose 50 MG; Start 10/31/16 at 10:30 Benazepril HCl (Lotensin) 10 mg BID PO Last administered on 11/04/16 09:00; Admin Dose 10 MG; Start 10/31/16 at 10:30 Diphenoxylate HCl/ Atropine (Lomotil) 1 tab Q6H PRN PO DIARRHEA; Start 10/31/16 at 10:30 Isosorbide Mononitrate (Imdur) 30 mg DAILY PO Last administered on 11/04/16 09: 00; Admin Dose 30 MG; Start 10/31/16 at 10:30 Verapamil HCl 240 mg 240 mg DAILY PO Last administered on 11/04/16 08:59; Admin Dose 240 MG; Start 10/31/16 at 10:30 Ferric Sodium Gluconate Complex/ Sodium Chloride (Ferrlecit/NS) 110 ml @ 110 mls/hr Q24H IVPB Last administered on 11/04/16 13:56; Admin Dose 110 MLS/HR; Start 11/01/16 at 13:00; Stop 11/05/16 at 13:59 Ciprofloxacin (Cipro) 500 mg BID@06,18 PO Last administered on 11/05/16 05:54; Admin Dose 500 MG; Start 11/04/16 at 10:15 JONH FLANAGAN NP Nov 05, 2016 07:24
[2016-11-05 07:48] LABS: CHOL/HDL RATIO 6.4 RATIO
[2016-11-05 08:30] VITALS: BP 130/61; RESP 20
[2016-11-05] MEDS: VERAPAMIL (SR) 240 MG TAB PO SCH (08:40)
[2016-11-05] MEDS: FERROUS SULFATE (EC) 325 MG TAB PO SCH ×2 (08:40→21:08)
[2016-11-05] MEDS: ISOSORBIDE MONONITRATE(SR)30 MG TAB PO SCH (08:40)
[2016-11-05] MEDS: FAMOTIDINE 20 MG TAB PO SCH ×2 (08:41→21:08)
[2016-11-05] MEDS: ATENOLOL 50 MG TAB NGT SCH ×2 (08:41→21:11)
[2016-11-05] MEDS: ASCORBIC ACID 500 MG TAB PO SCH (08:41)
[2016-11-05] MEDS: BENAZEPRIL 10 MG TAB PO SCH ×2 (08:41→21:10)
[2016-11-05] MEDS: SOD FERRIC GLUC COMPLX 125 MG in SOD CHLORIDE 0.9% 100 ML IVPB SCH (13:55)
--- NOTE | 2016-11-05 13:56 | CONS ---
Date/Time of Note Date/Time of Note DATE: 11/05/16 TIME: 13:41 Assessment/Plan Assessment/Plan Chief Complaint/Hosp Course 61 yo with obstructing ascending colon mass near the cecum that is now confirmed as poorly differentiated adenocarcinoma. -pt will need surgical resection. Appreciate surgical recommendations -further recommendations regarding chemotherapy will depend on the stage and characteristics of the tumor. -continue IV iron for iron deficiency anemia. Ferrlecit 5 days total have been ordered. -will order CXR to evaluate for thoracic disease Approximately 40 min were spent at patient's bedside and in coordination of her care Problems: Consultation Date/Type/Reason Admit Date/Time Oct 31, 2016 at 04:19 Date of Consultation: Nov 05, 2016 Type of Consultation: Oncology Reason for Consultation colon ca Referring Provider: JONH FLANAGAN VISUAL EDUCATION DIRECTOR Hx of Present Illness 61-year-old female with multiple medical problems who presented with RLQ abdominal pain that has been present for a while but acutely worsened over the last few days. She did report increased nausea with food intake. She also reports an intentional 60 pounds in 1 year. She endorsed intermittent rectal bleeding with bowel movements since Jul 2016 that she thought was secondary to hemorrhoids. When the patient presented to the ER, CT abdomen and pelvis shows thickening in the proximal ascending colon, likely primary neoplasm. Pt then underwent a colonoscopy that demonstrated a friable fungating mass in the ascending colon that is obstructing the lumen . The mass was biopsied and confirmed as poorly differentiated adenocarcinoma of the colon. Labs reveal a microcytic anemia consistent with iron deficiency that is currently being treated with IV iron. Constitutional: no complaints Eyes: no complaints ENT: no complaints Respiratory: no complaints Cardiovascular: no complaints Gastrointestinal: no complaints Genitourinary: no complaints Musculoskeletal: no complaints Skin: no complaints Neurologic: no complaints Endocrine: no complaints Psychological: no complaints Past Medical History hypertension anemia, asthma CHF, supraventricular tachyarrhythmia Medical History: congestive heart failure Family History Significant Family History: no pertinent family hx Social History Alcohol Use: none Smoking Status: Never smoker Drug Use: none Exam/Review of Systems Vital Signs Vitals Vital Signs Date Time Temp Pulse Resp B/P Pulse Ox O2 Delivery O2 Flow Rate FiO2 11/05/16 08:30 98.2 62 20 130/61 99 11/01/16 17:51 Room Air Intake and Output 11/04/16 11/04/16 11/05/16 15:00 23:00 07:00 Intake Total 1010 ml 920 ml Output Total 1700 ml 1500 ml Balance -690 ml -580 ml Exam Constitutional: alert, oriented Psych: no complaints Head: normocephalic Eyes: nl conjunctiva ENMT: nl external ears & nose Neck: non-tender, supple Respiratory: clear to auscultation, normal air movement Cardiovascular: nl pulses, regular rate and rhythm Gastrointestinal: soft Musculoskeletal: nl extremities to inspection Extremities: normal pulses Results Result Diagram: 11/05/16 0444 11/05/16 0444 Results 24 hrs Laboratory Tests Test 11/04/16 18:20 11/05/16 00:25 11/05/16 04:40 11/05/16 04:44 Troponin I < 0.012 < 0.012 < 0.012 Magnesium Level 2.0 Phosphorus Level 4.3 Anion Gap 15 Basophils # 0.0 Basophils % 0.3 Blood Urea Nitrogen 12 Calcium Level 9.5 Carbon Dioxide Level 26 Chloride Level 105 Cholesterol Level 154 Cholesterol/HDL Ratio 6.4 Creatinine 0.90 Eosinophils # 0.3 Eosinophils % 2.9 Glucose Level 116 HDL Cholesterol 24 L Hematocrit 28.0 L Hemoglobin 8.1 L LDL Cholesterol, Calculated 104 Lymphocytes # 2.6 Lymphocytes % 24.2 Mean Corpuscular Hemoglobin 20.7 L Mean Corpuscular Hemoglobin Concent 28.9 L Mean Corpuscular Volume 71.4 L Mean Platelet Volume 8.6 Monocytes # 0.9 Monocytes % 8.1 Neutrophils # 7.0 Neutrophils % 64.0 Nucleated Red Blood Cells # 0.0 Nucleated Red Blood Cells % 0.0 Platelet Count 505 H Potassium Level 3.9 Red Blood Count 3.92 L Red Cell Distribution Width 22.0 H Sodium Level 142 Triglycerides Level 132 White Blood Count 10.9 H Medications Medications Current Medications Ondansetron HCl (Zofran Inj) 4 mg Q6H PRN IV NAUSEA AND/OR VOMITING Last administered on 10/31/16 11:29; Admin Dose 4 MG; Start 10/31/16 at 08:00 Acetaminophen (Tylenol Tab) 650 mg Q6H PRN PO PAIN LEVEL 1-3 OR FEVER; Start at 08:00 Morphine Sulfate (morphine) 3 mg Q4H PRN IV SEVERE PAIN LEVEL 7-10 Last administered on 11/02/16 23:50; Admin Dose 3 MG; Start 10/31/16 at 08:00 Famotidine (Pepcid) 20 mg Q12 PO Last administered on 11/05/16 08:41; Admin Dose 20 MG; Start 10/31/16 at 09:00 Ferrous Sulfate (Ferrous Sulfate (Ec)) 325 mg BID PO Last administered on 08:40; Admin Dose 325 MG; Start 10/31/16 at 09:00 Ascorbic Acid (Vitamin C) 500 mg DAILY PO Last administered on 11/05/16 08:41; Admin Dose 500 MG; Start 10/31/16 at 10:30 Atenolol (Tenormin) 50 mg BID NGT Last administered on 11/05/16 08:41; Admin Dose 50 MG; Start 10/31/16 at 10:30 Benazepril HCl (Lotensin) 10 mg BID PO Last administered on 11/05/16 08:41; Admin Dose 10 MG; Start 10/31/16 at 10:30 Diphenoxylate HCl/ Atropine (Lomotil) 1 tab Q6H PRN PO DIARRHEA; Start 10/31/16 at 10:30 Isosorbide Mononitrate (Imdur) 30 mg DAILY PO Last administered on 11/05/16 08: 40; Admin Dose 30 MG; Start 10/31/16 at 10:30 Verapamil HCl 240 mg 240 mg DAILY PO Last administered on 11/05/16 08:40; Admin Dose 240 MG; Start 10/31/16 at 10:30 Ferric Sodium Gluconate Complex/ Sodium Chloride (Ferrlecit/NS) 110 ml @ 110 mls/hr Q24H IVPB Last administered on 11/04/16 13:56; Admin Dose 110 MLS/HR; Start 11/01/16 at 13:00; Stop 11/05/16 at 13:59 Ciprofloxacin (Cipro) 500 mg BID@06,18 PO Last administered on 11/05/16 05:54; Admin Dose 500 MG; Start 11/04/16 at 10:15 SKYLER LONGORIA M.D. Nov 05, 2016 13:52
--- NOTE | 2016-11-05 15:51 | RADRPT ---
PROCEDURE: Chest radiograph series. CLINICAL INDICATION: Cough. Possible metastatic disease. TECHNIQUE: PA and lateral chest x-ray. COMPARISON: None. FINDINGS: Heart size is within normal limits. Atherosclerotic calcifications are present. The lungs and costo phrenic angles are clear. The osseous structures are unremarkable. IMPRESSION: 1. No evidence of acute cardiopulmonary disease. 2. Atherosclerotic vascular disease.. RPTAT: KK .Benjamin Brown MD, MD Date Time Electronically viewed and signed by .Benjamin Brown MD, on 11/05/2016 15:51 .B/
--- NOTE | 2016-11-05 15:51 | PN ---
Date/Time of Note Date/Time of Note DATE: 11/05/16 TIME: 15:38 Assessment/Plan Lines/Catheters IV Catheter Type (from [facility]): Saline Lock Kowalski in Place (from [facility]): No Assessment/Plan Chief Complaint/Hosp Course 1. Ascending colon adenocarcinoma with lymph nodes s/p Colonoscopy 11/01 with narrowing > still having bowel functions. -resection to be planned after medical optimization and clearence 2. Hemorrhoids, uninflamed currently. 3. History of rectal bleed, possibly secondary to hemorrhoids & colon cancer -monitor h/h 4. Anemia secondary to above. Transfuse as needed 5. Morbid obesity. The patient is highly encouraged to continue her nutritional optimization and exercise. 6. Hypertension. Continue diet and medication control and encourage weight loss. 7. Congestive heart failure history. Continue judicious fluid management and cardiac optimization. 8. Asthma history. Continue medical optimization. Encourage weight loss. 9. Possible urinary tract infection. Continue antibiotics. 10. Thrombocytosis secondary to CT findings probably. Workup as above. 11. Diverticulosis. Continue encourage nutritional and lifestyle optimization. 12. Abdominal pain, right lower quadrant, probably secondary to above. Thank you, Problems: Subjective 24 Hr Interval Summary s/p Colonoscopy 11/01 with narrowing. No fever or chills. No cp or sob. No cough. No sparrow. Min pain. No dizziness, visual or neuro changes. No dysuria. Bowel function. Exam/Review of Systems Vital Signs Vitals Vital Signs Date Time Temp Pulse Resp B/P Pulse Ox O2 Delivery O2 Flow Rate FiO2 11/05/16 08:30 98.2 62 20 130/61 99 11/01/16 17:51 Room Air Intake and Output 11/04/16 11/04/16 11/05/16 15:00 23:00 07:00 Intake Total 1010 ml 920 ml Output Total 1700 ml 1500 ml Balance -690 ml -580 ml Exam Free Text/Dictation GENERAL: No acute distress. Morbidly obese. PSYCHIATRIC: Flat affect. HEENT: Pupils equal, reactive. No scleral icterus. Mucous membranes are somewhat moist. NECK: Supple. No JVD. PULMONARY: Normal respiratory effort. No wheezing. CARDIAC: S1, S2 present. ABDOMEN: Soft, obese, minimally tender in right lower quadrant. No rebound, no guarding, not rigid. EXTREMITIES: No edema. VASCULAR: Cap refill less than 2 seconds. NEUROLOGIC: Alert, oriented, moves all 4 extremities grossly. LYMPHATICS: No inguinal, cervical, periauricular, or clavicular palpable lymph nodes. RECTAL: No masses, lesions, or induration. Small hemorrhoids. No blood. Results Result Diagram: 11/05/16 0444 11/05/16 0444 SACHIN MALAVE MD Nov 05, 2016 15:48
[2016-11-05] MEDS ORDERED: SOD CHLORIDE 0.9% 250 ML IV* SCH (16:05)
[2016-11-05] MEDS ORDERED: FUROSEMIDE 20 MG INJ IV SCH (16:30)
[2016-11-05] MEDS ORDERED: FUROSEMIDE 40 MG INJ IV SCH (16:30)
[2016-11-05] MEDS: D5W-0.45 NACL + KCL 10 MEQ 1,000 ML IV SCH (17:26)
[2016-11-05] MEDS ORDERED: PEG/ELECTROLYTES 4L BTL PO ONE (17:30)
--- NOTE | 2016-11-05 17:30 | CONS ---
Date/Time of Note Date/Time of Note DATE: 11/05/16 TIME: 17:23 Assessment/Plan Assessment/Plan Chief Complaint/Hosp Course IMPRESSION: 1. Preoperative evaluation prior to surgical resection of colonic neoplasm.- negative troponin x 3/Nl EF by echo 10/18. No cardiac contraindication to proceeding to OR on current medical therapy at moderate CV without further non- invasive evaluation 2. History of supraventricular tachyarrhythmia, question arterioventricular node re-entry tachycardia. 3. Hypertension, under reasonable control. 4. Colonic mass consistent with colonic neoplasm, colon carcinoma. 5. Abdominal pain secondary to abdominal mass. 6. Asthma. 7. Urinary tract infection. 8. Anemia. Recc: -Continue atenolol/verapamil/Benazpril -Pain control -Follow volume status closely -pnding surgery and would check post-op ecg Problems: Consultation Date/Type/Reason Admit Date/Time Oct 31, 2016 at 04:19 Initial Consult Date 11/05/16 Type of Consultation: Cardiology Reason for Consultation Pre-op Referring Provider: JONH FLANAGAN PRODUCTION SUPPORT DEVELOPER Exam/Review of Systems Vital Signs Vitals Vital Signs Date Time Temp Pulse Resp B/P Pulse Ox O2 Delivery O2 Flow Rate FiO2 11/05/16 08:30 98.2 62 20 130/61 99 11/01/16 17:51 Room Air Intake and Output 11/04/16 11/04/16 11/05/16 15:00 23:00 07:00 Intake Total 1010 ml 920 ml Output Total 1700 ml 1500 ml Balance -690 ml -580 ml Exam Review of Systems: CONSTITUTIONAL: No fevers, chills. PULMONARY: No sob CARDIOVASCULAR: No chest pain/palpitations GASTROINTESTINAL: Mild abd pain. GENITOURINARY: No hematuria/dysuria. MUSCULOSKELETAL: No myagias/arthalgias. PSYCHIATRIC: The patient denies depression. NEUROLOGIC: No weakness Constitutional: alert Psych: no complaints Head: normocephalic ENMT: mucosa pink and moist Neck: jvd (9 cm water), supple Respiratory: clear to auscultation Cardiovascular: regular rate and rhythm Gastrointestinal: non-tender, soft Musculoskeletal: muscle tone (normal) Extremities: edema (none) Neurological: other (No focal deficits) Results Result Diagram: 11/05/16 0444 11/05/16 0444 Results 24 hrs Laboratory Tests Test 11/04/16 18:20 3/7/17 00:25 11/05/16 04:40 11/05/16 04:44 Troponin I < 0.012 < 0.012 < 0.012 Magnesium Level 2.0 Phosphorus Level 4.3 Anion Gap 15 Basophils # 0.0 Basophils % 0.3 Blood Urea Nitrogen 12 Calcium Level 9.5 Carbon Dioxide Level 26 Chloride Level 105 Cholesterol Level 154 Cholesterol/HDL Ratio 6.4 Creatinine 0.90 Eosinophils # 0.3 Eosinophils % 2.9 Glucose Level 116 HDL Cholesterol 24 L Hematocrit 28.0 L Hemoglobin 8.1 L LDL Cholesterol, Calculated 104 Lymphocytes # 2.6 Lymphocytes % 24.2 Mean Corpuscular Hemoglobin 20.7 L Mean Corpuscular Hemoglobin Concent 28.9 L Mean Corpuscular Volume 71.4 L Mean Platelet Volume 8.6 Monocytes # 0.9 Monocytes % 8.1 Neutrophils # 7.0 Neutrophils % 64.0 Nucleated Red Blood Cells # 0.0 Nucleated Red Blood Cells % 0.0 Platelet Count 505 H Potassium Level 3.9 Red Blood Count 3.92 L Red Cell Distribution Width 22.0 H Sodium Level 142 Triglycerides Level 132 White Blood Count 10.9 H Medications Medications Current Medications Ondansetron HCl (Zofran Inj) 4 mg Q6H PRN IV NAUSEA AND/OR VOMITING Last administered on 10/31/16 11:29; Admin Dose 4 MG; Start 10/31/16 at 08:00 Acetaminophen (Tylenol Tab) 650 mg Q6H PRN PO PAIN LEVEL 1-3 OR FEVER; Start at 08:00 Morphine Sulfate (morphine) 3 mg Q4H PRN IV SEVERE PAIN LEVEL 7-10 Last administered on 11/02/16 23:50; Admin Dose 3 MG; Start 10/31/16 at 08:00 Famotidine (Pepcid) 20 mg Q12 PO Last administered on 11/05/16 08:41; Admin Dose 20 MG; Start 10/31/16 at 09:00 Ferrous Sulfate (Ferrous Sulfate (Ec)) 325 mg BID PO Last administered on 08:40; Admin Dose 325 MG; Start 10/31/16 at 09:00 Ascorbic Acid (Vitamin C) 500 mg DAILY PO Last administered on 11/05/16 08:41; Admin Dose 500 MG; Start 10/31/16 at 10:30 Atenolol (Tenormin) 50 mg BID NGT Last administered on 11/05/16 08:41; Admin Dose 50 MG; Start 10/31/16 at 10:30 Benazepril HCl (Lotensin) 10 mg BID PO Last administered on 11/05/16 08:41; Admin Dose 10 MG; Start 10/31/16 at 10:30 Diphenoxylate HCl/ Atropine (Lomotil) 1 tab Q6H PRN PO DIARRHEA; Start 10/31/16 at 10:30 Isosorbide Mononitrate (Imdur) 30 mg DAILY PO Last administered on 11/05/16 08: 40; Admin Dose 30 MG; Start 10/31/16 at 10:30 Verapamil HCl (Isoptin Sr) 240 mg DAILY PO Last administered on 11/05/16 08:40 ; Admin Dose 240 MG; Start 10/31/16 at 10:30 Ciprofloxacin 500 mg 500 mg BID@06,18 PO Last administered on 11/05/16 05:54; Admin Dose 500 MG; Start 11/04/16 at 10:15 Sodium Chloride 250 ml @ 0 mls/hr Q0M IV* ; Start 11/05/16 at 16:05; Stop at 08:00 Potassium Chloride/Dextrose/ Sod Cl (D5-1/2ns + KCl 10 Meq) 1,000 ml @ 75 mls/ hr [id number] IV ; Start 11/05/16 at 16:30 Polyethylene Glycol/ Electrolytes (Golytely) 4,000 ml ONCE ONCE PO ; Start 11/05 at 17:30; Stop 11/05/16 at 17:31 Furosemide (Lasix) 20 mg ONCE IV Last administered on 11/05/16 17:16; Admin Dose 20 MG; Start 11/05/16 at 16:30; Stop 11/06/16 at 16:29 ANDRA NEAL Nov 05, 2016 17:29
--- NOTE | 2016-11-05 18:02 | CONS ---
Date/Time of Note Date/Time of Note DATE: 11/05/16 TIME: 17:59 Assessment/Plan Assessment/Plan Additional Assessment/Plan 1. Right lower quadrant inguinal pain. Patient noted to have abdominal CT that did show abnormal thickening of the wall involving the proximal ascending colon near the cecum most consistent with primary colonic neoplasm. Colonoscopy confirmed obstructing ascending colon mass. biopsy showed poorly differentiated adenoCA. 2. Bilateral intrarenal calculi greater in the right lower pole without evidence of hydronephrosis. 3. Diverticular disease without diverticulitis. 4. Essential hypertension. We'll continue on antihypertensives and adjust as needed. Stable 5. Iron deficiency anemia likely secondary to colon cancer 6. Morbid obesity. Weight reduction advised. 7. Suspect UTI. Noted with lactobacillus species. Will follow up on final culture Recommendation: 1. Oncology and surgery following 2. pain control 3. Colon resection in process 4. continue IV iron replacement therapy Further recommendations depend on clinical course Pt seen in collaboration with Dr. Hdez Consultation Date/Type/Reason Admit Date/Time Oct 31, 2016 at 04:19 Initial Consult Date 11/05/16 Type of Consultation: GI Referring Provider: JONH FLANAGAN NP 24 HR Interval Summary Free Text/Dictation Colon resection tomorrow Prep in process Hgb stable Exam/Review of Systems Vital Signs Vitals Vital Signs Date Time Temp Pulse Resp B/P Pulse Ox O2 Delivery O2 Flow Rate FiO2 11/05/16 08:30 98.2 62 20 130/61 99 11/01/16 17:51 Room Air Intake and Output 11/04/16 11/04/16 11/05/16 14:59 22:59 06:59 Intake Total 1010 ml 920 ml Output Total 1700 ml 1500 ml Balance -690 ml -580 ml Exam Constitutional: alert, oriented, well developed Psych: nl mood/affect, no complaints Head: normocephalic Eyes: EOMI, nl conjunctiva, nl lids, nl sclera ENMT: nl external ears & nose, nl lips & teeth, nl nasal mucosa & septum Neck: non-tender, supple Respiratory: clear to auscultation, normal air movement Cardiovascular: nl pulses, regular rate and rhythm Gastrointestinal: bowel sounds, soft, tender (right sided tenderness) Results Result Diagram: 11/05/16 0444 11/05/16 0444 Results 24 hrs Laboratory Tests Test 11/04/16 18:20 11/05/16 00:25 11/05/16 04:40 11/05/16 04:44 Troponin I < 0.012 < 0.012 < 0.012 Magnesium Level 2.0 Phosphorus Level 4.3 Anion Gap 15 Basophils # 0.0 Basophils % 0.3 Blood Urea Nitrogen 12 Calcium Level 9.5 Carbon Dioxide Level 26 Chloride Level 105 Cholesterol Level 154 Cholesterol/HDL Ratio 6.4 Creatinine 0.90 Eosinophils # 0.3 Eosinophils % 2.9 Glucose Level 116 HDL Cholesterol 24 L Hematocrit 28.0 L Hemoglobin 8.1 L LDL Cholesterol, Calculated 104 Lymphocytes # 2.6 Lymphocytes % 24.2 Mean Corpuscular Hemoglobin 20.7 L Mean Corpuscular Hemoglobin Concent 28.9 L Mean Corpuscular Volume 71.4 L Mean Platelet Volume 8.6 Monocytes # 0.9 Monocytes % 8.1 Neutrophils # 7.0 Neutrophils % 64.0 Nucleated Red Blood Cells # 0.0 Nucleated Red Blood Cells % 0.0 Platelet Count 505 H Potassium Level 3.9 Red Blood Count 3.92 L Red Cell Distribution Width 22.0 H Sodium Level 142 Triglycerides Level 132 White Blood Count 10.9 H Medications Medications Current Medications Ondansetron HCl (Zofran Inj) 4 mg Q6H PRN IV NAUSEA AND/OR VOMITING Last administered on 10/31/16 11:29; Admin Dose 4 MG; Start 10/31/16 at 08:00 Acetaminophen (Tylenol Tab) 650 mg Q6H PRN PO PAIN LEVEL 1-3 OR FEVER; Start at 08:00 Morphine Sulfate (morphine) 3 mg Q4H PRN IV SEVERE PAIN LEVEL 7-10 Last administered on 11/02/16 23:50; Admin Dose 3 MG; Start 10/31/16 at 08:00 Famotidine (Pepcid) 20 mg Q12 PO Last administered on 11/05/16 08:41; Admin Dose 20 MG; Start 10/31/16 at 09:00 Ferrous Sulfate (Ferrous Sulfate (Ec)) 325 mg BID PO Last administered on 08:40; Admin Dose 325 MG; Start 10/31/16 at 09:00 Ascorbic Acid (Vitamin C) 500 mg DAILY PO Last administered on 11/05/16 08:41; Admin Dose 500 MG; Start 10/31/16 at 10:30 Atenolol (Tenormin) 50 mg BID NGT Last administered on 11/05/16 08:41; Admin Dose 50 MG; Start 10/31/16 at 10:30 Benazepril HCl (Lotensin) 10 mg BID PO Last administered on 11/05/16 08:41; Admin Dose 10 MG; Start 10/31/16 at 10:30 Diphenoxylate HCl/ Atropine (Lomotil) 1 tab Q6H PRN PO DIARRHEA; Start 10/31/16 at 10:30 Isosorbide Mononitrate (Imdur) 30 mg DAILY PO Last administered on 11/05/16 08: 40; Admin Dose 30 MG; Start 10/31/16 at 10:30 Verapamil HCl (Isoptin Sr) 240 mg DAILY PO Last administered on 11/05/16 08:40 ; Admin Dose 240 MG; Start 10/31/16 at 10:30 Ciprofloxacin 500 mg 500 mg BID@06,18 PO Last administered on 11/05/16 17:26; Admin Dose 500 MG; Start 11/04/16 at 10:15 Sodium Chloride 250 ml @ 0 mls/hr Q0M IV* ; Start 11/05/16 at 16:05; Stop at 08:00 Potassium Chloride/Dextrose/ Sod Cl (D5-1/2ns + KCl 10 Meq) 1,000 ml @ 75 mls/ hr [id number] IV Last administered on 11/05/16 17:26; Admin Dose 75 MLS/HR; Start 11/05/16 at 16:30 Furosemide (Lasix) 20 mg ONCE IV Last administered on 11/05/16 17:16; Admin Dose 20 MG; Start 11/05/16 at 16:30; Stop 11/06/16 at 16:29 MANE CHINCHILLA Nov 05, 2016 18:02
[2016-11-05 19:58] VITALS: BP 132/67; RESP 18
--- NOTE | 2016-11-05 20:26 | RADRPT ---
Vent Rate: 62 bpm RR Interval: 0 msec [place] Interval: 150 msec QRS Duration: 104 msec QT Interval: 470 msec QTC Interval: 477 msec P-R-T [place]: 27 - 6 - 31 degrees Normal sinus rhythm Cannot rule out Anterior infarct , age undetermined Abnormal ECG Electronically Signed By: Tapan Cleary [id number]
[2016-11-05] MEDS ORDERED: FUROSEMIDE 20 MG INJ IV ONE (21:00)
[2016-11-05 21:18] VITALS: BP 125/62; PULSE 65; RESP 18
[2016-11-05 22:32] VITALS: BP 133/63; PULSE 67; RESP 18
[2016-11-05 23:15] VITALS: BP 118/55; PULSE 67; RESP 19
[2016-11-05 23:30] VITALS: BP 108/54; PULSE 69; RESP 18
[2016-11-06] VITALS (29 sets, daily range): BP systolic 113–151; BP diastolic 55–73; PULSE 62–75; RESP 12–20
[2016-11-06 05:02] LABS: ADD SCAN DIFF NO
[2016-11-06 05:17] LABS: ABNORMAL IP MESSAGE 1; BASOPHILS % 0.3 % (0.0-2.0); EOSINOPHILS # 0.3 10^3/ul (0.0-0.5); HEMATOCRIT 30.7 % (37.0-47.0); HEMOGLOBIN 9.1 g/dl (12.0-16.0); LYMPHOCYTES # 2.9 10^3/ul (0.8-2.9); LYMPHOCYTES % 27.8 % (15.0-51.0); MEAN CORPUSCULAR HEMOGLOBIN 21.5 pg (29.0-33.0); MEAN CORPUSCULAR HGB CONC 29.6 g/dl (32.0-37.0); MEAN CORPUSCULAR VOLUME 72.4 fl (82.0-101.0); MEAN PLATELET VOLUME 8.6 fl (7.4-10.4); MONOCYTE # 0.8 10^3/ul (0.3-0.9); MONOCYTES % 7.5 % (0.0-11.0); NEUTROPHIL # 6.4 10^3/ul (1.6-7.5); NEUTROPHILS % 61.1 % (39.0-77.0); PLATELET COUNT 519 10^3/UL (140-415); RED BLOOD COUNT 4.24 10^6/ul (4.20-5.40); RED CELL DISTRIBUTION WIDTH 23.9 % (11.5-14.5); WHITE BLOOD COUNT 10.4 10^3/ul (4.8-10.8)
[2016-11-06] MEDS: D5W-0.45 NACL + KCL 10 MEQ 1,000 ML IV SCH ×2 (05:20→16:33)
[2016-11-06] MEDS: CIPROFLOXACIN 500 MG TAB PO SCH (05:20)
[2016-11-06 05:21] LABS: INR 1.11; PROTIME 14.3 Sec (12.2-14.2); PT RATIO 1.1
[2016-11-06 05:22] LABS: PARTIAL THROMBOPLASTIN TIME 33.9 Sec (25.0-35.0)
[2016-11-06 05:23] LABS: POTASSIUM 3.6 mmol/L (3.5-5.1)
[2016-11-06 05:25] LABS: CREATININE 0.87 mg/dl (0.44-1.00); MAGNESIUM 1.9 mg/dl (1.7-2.5); PHOSPHORUS 4.1 mg/dl (2.5-4.9)
[2016-11-06 05:26] LABS: CALCIUM 9.4 mg/dl (8.4-10.2)
[2016-11-06] MEDS ORDERED: BUPIVACAINE 0.5%/EPI (SDV) 30 ML INJ ONE (07:11)
[2016-11-06] MEDS ORDERED: LIDOCAINE 1% (MPF) 30 ML INJ ONE (07:11)
--- NOTE | 2016-11-06 07:23 | PN ---
Date/Time of Note Date/Time of Note DATE: 11/06/16 TIME: 07:21 Assessment/Plan VTE Prophylaxis VTE Prophylaxis Intervention: SCD's Lines/Catheters IV [facility] Type (from [facility]): Peripheral IV Urinary Cath still in place: No Assessment/Plan Chief Complaint/Hosp Course 1. 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 Newly diagnosed. Oncology and surgery on board. Plan for surgical resection. 2. Microcytic, hypochromic anemia. Most probably secondary to underlying rectal bleed and also from iron deficiency. Transfuse blood products as needed. Continue iron supplements. 3. Paroxysmal supraventricular tachycardia. Continue the patient on beta blockers and verapamil. Cardiology following. 4. Essential hypertension. Continue antihypertensives. 5. Urinary tract infection. Urine culture positive for lactobacillus species as colony count greater than 100,000 units per mL. Continue antibiotics. 6. Morbid obesity. Weight reduction will be advised. 7. Fluid, electrolytes and nutrition. Continue gluten-free diet. 8. Deep venous thrombosis prophylaxis. Bilateral sequential compression devices. 9. Gastrointestinal prophylaxis with histamine 2 receptor blockers. PLAN: Continue current care. Await surgical resection. Case discussed with Dr. Calvo. Problems: Subjective 24 Hr Interval Summary Free Text/Dictation Patient scheduled for surgical resection of the colonic mass. Exam/Review of Systems Vital Signs Vitals Vital Signs Date Time Temp Pulse Resp B/P Pulse Ox O2 Delivery O2 Flow Rate FiO2 11/06/16 06:40 98.4 64 18 126/63 Room Air 11/06/16 03:37 98 Intake and Output 11/05/16 11/05/16 11/06/16 14:59 22:59 06:59 Intake Total 865 ml 1425 ml Output Total 1500 ml 1750 ml Balance -635 ml -325 ml Exam GENERAL: This is an obese female lying in bed in no apparent distress. HEENT: Normocephalic and atraumatic. Eyes: Anicteric sclerae. Conjunctivae clear. ENT: Nasal septum is midline. Oral mucosa is moist. NECK: Supple. No JVD noticed. RESPIRATORY: Bilaterally clear to auscultation. No adventitious breath sounds heard. No use of accessory muscles of respiration. CARDIAC: Regular rate and rhythm. S1 and S2 heard. ABDOMEN: Soft, nontender and nondistended. Bowel sounds positive in all 4 quadrants. GENITOURINARY: Deferred. EXTREMITIES: No cyanosis, no clubbing, no edema. Peripheral pulses are palpable. NEUROLOGIC: The patient is awake, alert and oriented. Cranial nerves are grossly intact. Results Result Diagram: 11/06/1641411/06/16414 Results 24 hrs Laboratory Tests Test 11/06/16 04:15 Activated Partial Thromboplast Time 33.9 Anion Gap 17 H Basophils # 0.0 Basophils % 0.3 Blood Urea Nitrogen 10 Calcium Level 9.4 Carbon Dioxide Level 24 Chloride Level 104 Creatinine 0.87 Eosinophils # 0.3 Eosinophils % 3.0 Glucose Level 94 Hematocrit 30.7 L Hemoglobin 9.1 L INR International Normalized Ratio 1.11 Lymphocytes # 2.9 Lymphocytes % 27.8 Magnesium Level 1.9 Mean Corpuscular Hemoglobin 21.5 L Mean Corpuscular Hemoglobin Concent 29.6 L Mean Corpuscular Volume 72.4 L Mean Platelet Volume 8.6 Monocytes # 0.8 Monocytes % 7.5 Neutrophils # 6.4 Neutrophils % 61.1 Nucleated Red Blood Cells # 0.0 Nucleated Red Blood Cells % 0.0 Phosphorus Level 4.1 Platelet Count 519 H Potassium Level 3.6 Prothrombin Time 14.3 H Prothrombin Time Ratio 1.1 Red Blood Count 4.24 Red Cell Distribution Width 23.9 H Sodium Level 141 White Blood Count 10.4 Medications Medications Current Medications Ondansetron HCl (Zofran Inj) 4 mg Q6H PRN IV NAUSEA AND/OR VOMITING Last administered on 10/31/16 11:29; Admin Dose 4 MG; Start 10/31/16 at 08:00 Acetaminophen (Tylenol Tab) 650 mg Q6H PRN PO PAIN LEVEL 1-3 OR FEVER; Start at 08:00 Morphine Sulfate (morphine) 3 mg Q4H PRN IV SEVERE PAIN LEVEL 7-10 Last administered on 11/02/16 23:50; Admin Dose 3 MG; Start 10/31/16 at 08:00 Famotidine (Pepcid) 20 mg Q12 PO Last administered on 11/05/16 21:08; Admin Dose 20 MG; Start 10/31/16 at 09:00 Ferrous Sulfate (Ferrous Sulfate (Ec)) 325 mg BID PO Last administered on 21:08; Admin Dose 325 MG; Start 10/31/16 at 09:00 Ascorbic Acid (Vitamin C) 500 mg DAILY PO Last administered on 11/05/16 08:41; Admin Dose 500 MG; Start 10/31/16 at 10:30 Atenolol (Tenormin) 50 mg BID NGT Last administered on 11/05/16 21:11; Admin Dose 50 MG; Start 10/31/16 at 10:30 Benazepril HCl (Lotensin) 10 mg BID PO Last administered on 11/05/16 21:10; Admin Dose 10 MG; Start 10/31/16 at 10:30 Diphenoxylate HCl/ Atropine (Lomotil) 1 tab Q6H PRN PO DIARRHEA; Start 10/31/16 at 10:30 Isosorbide Mononitrate (Imdur) 30 mg DAILY PO Last administered on 11/05/16 08: 40; Admin Dose 30 MG; Start 10/31/16 at 10:30 Verapamil HCl (Isoptin Sr) 240 mg DAILY PO Last administered on 11/05/16 08:40 ; Admin Dose 240 MG; Start 10/31/16 at 10:30 Ciprofloxacin 500 mg 500 mg BID@06,18 PO Last administered on 11/05/16 17:26; Admin Dose 500 MG; Start 11/04/16 at 10:15 Sodium Chloride 250 ml @ 0 mls/hr Q0M IV* ; Start 11/05/16 at 16:05; Stop at 08:00 Potassium Chloride/Dextrose/ Sod Cl (D5-1/2ns + KCl 10 Meq) 1,000 ml @ 75 mls/ hr [id number] IV Last administered on 11/05/16 17:26; Admin Dose 75 MLS/HR; Start 11/05/16 at 16:30 Furosemide (Lasix) 20 mg ONCE IV Last administered on 11/05/16 17:16; Admin Dose 20 MG; Start 11/05/16 at 16:30; Stop 11/06/16 at 16:29 JONH FLANAGAN NP Nov 06, 2016 07:23
[2016-11-06] MEDS ORDERED: METOCLOPRAMIDE 10 MG INJ ONE (07:31)
[2016-11-06] MEDS ORDERED: ONDANSETRON 4 MG INJ ONE (07:31)
[2016-11-06] MEDS ORDERED: MIDAZOLAM 1 MG/ML 2 ML INJ ONE (07:31)
[2016-11-06] MEDS ORDERED: NEOSTIGMINE 3 MG/3 ML SYRINGE ONE (07:31)
[2016-11-06] MEDS ORDERED: HYDROmorphONE 2 MG/ML SYG ONE (07:31)
[2016-11-06] MEDS ORDERED: PROPOFOL 20 ML ONE (07:31)
[2016-11-06] MEDS ORDERED: ROCURONIUM 50 MG INJ ONE ×2 (07:31→08:24)
[2016-11-06] MEDS ORDERED: GLYCOPYRROLATE 0.4 MG INJ ONE (07:31)
--- NOTE | 2016-11-06 07:43 | PN ---
Date/Time of Note Date/Time of Note DATE: 11/06/16 TIME: 07:41 Assessment/Plan Lines/Catheters IV Catheter Type (from [facility]): Peripheral IV Kowalski in Place (from [facility]): No Assessment/Plan Chief Complaint/Hosp Course 1. Ascending colon adenocarcinoma with lymph nodes s/p Colonoscopy 11/01 with narrowing > still having bowel functions. -resection today 2. Epigastric incisional hernia, reducible -repair after weight loss at later time 3. History of rectal bleed, possibly secondary to hemorrhoids & colon cancer -monitor h/h 4. Anemia secondary to above s/p 2 u pRBCs. 5. Morbid obesity. The patient is highly encouraged to continue her nutritional optimization and exercise. 6. Hypertension. Continue diet and medication control and encourage weight loss. 7. Congestive heart failure history. Continue judicious fluid management and cardiac optimization. 8. Asthma history. Continue medical optimization. Encourage weight loss. 9. Possible urinary tract infection. Continue antibiotics. 10. Thrombocytosis secondary to CT findings probably. Workup as above. 11. Diverticulosis. Continue encourage nutritional and lifestyle optimization. 12. Abdominal pain, right lower quadrant, probably secondary to above. 13. Hemorrhoids, uninflamed currently. Thank you, Problems: Subjective 24 Hr Interval Summary s/p 2 u pRBCs. No fever or chills. No cp or sob. No cough. No sparrow. Min pain. No dizziness, visual or neuro changes. No dysuria. Bowel function. Exam/Review of Systems Vital Signs Vitals Vital Signs Date Time Temp Pulse Resp B/P Pulse Ox O2 Delivery O2 Flow Rate FiO2 11/06/16 06:40 98.4 64 18 126/63 Room Air 11/06/16 03:37 98 Intake and Output 11/05/16 11/05/16 11/06/16 14:59 22:59 06:59 Intake Total 865 ml 1425 ml Output Total 1500 ml 1750 ml Balance -635 ml -325 ml Exam Free Text/Dictation GENERAL: No acute distress. Morbidly obese. PSYCHIATRIC: Flat affect. HEENT: Pupils equal, reactive. No scleral icterus. Mucous membranes are somewhat moist. NECK: Supple. No JVD. PULMONARY: Normal respiratory effort. No wheezing. CARDIAC: S1, S2 present. ABDOMEN: Soft, obese, minimally tender in right lower quadrant. No rebound, no guarding, not rigid. Epigastric reducible hernia EXTREMITIES: No edema. VASCULAR: Cap refill less than 2 seconds. NEUROLOGIC: Alert, oriented, moves all 4 extremities grossly. LYMPHATICS: No inguinal, cervical, periauricular, or clavicular palpable lymph nodes. RECTAL: No masses, lesions, or induration. Small hemorrhoids. No blood. Results Result Diagram: 11/06/16 0415 11/06/16 0415 SACHIN MALAVE MD Nov 06, 2016 07:43
[2016-11-06] MEDS ORDERED: CIPROFLOXACIN 400MG/D5W 200 ML ONE (08:21)
[2016-11-06] MEDS ORDERED: DEXAMETHASONE 4 MG/ML 1 ML INJ ONE (08:25)
[2016-11-06] MEDS: ATENOLOL 50 MG TAB NGT SCH ×2 (09:00→20:39)
[2016-11-06] MEDS ORDERED: ROPIVACAINE 0.5 % 30 ML VIAL ONE (11:21)
[2016-11-06] MEDS ORDERED: ONDANSETRON 4 MG INJ IV PRN (12:00)
[2016-11-06] MEDS ORDERED: MEPERIDINE 25 MG INJ IV PRN (12:00)
[2016-11-06] MEDS ORDERED: DIPHENHYDRAMINE 50 MG INJ IV PRN (12:00)
[2016-11-06] MEDS ORDERED: METOCLOPRAMIDE 10 MG INJ IV PRN (12:00)
[2016-11-06] MEDS ORDERED: HYDROmorphONE (0.2 MG/ML) 10ML SYG IV PRN ×3 (12:00)
[2016-11-06] MEDS ORDERED: EPHEDrine SULFATE 50 MG/5 ML SYG ONE (12:15)
--- NOTE | 2016-11-06 13:21 | OPR ---
Date/Time of Note Date/Time of Note DATE: 11/06/16 TIME: 12:50 Operative Report Procedure Date: Nov 06, 2016 Procedure Description Preoperative Diagnosis: Ascending colon adenocarcinoma BMI 40 Postoperative Diagnosis: Ascending colon adenocarcinoma BMI 40 Abnormal liver color and contour Operation(s) Performed: 1. Laparoscopic right colectomy 2. Laparoscopic implantation of xenograft biologic over the anastomosis for improved healing 3. Local anesthetic injection, 149[address] 4. Difficult operation, modifier 22 Surgeon: SACHIN MALAVE MD Anesthesia: General, local, & regional Anesthesiologist: Dr. Shelby Montes Estimated Blood Loss: 50 ml's Specimens: Right colon Tubes/Drains: [ACell, 7 x 10 cm, 3 layer] Complications: None Pt Condition Post Procedure: stable Disposition: PACU Indications: Per notes Risks include but are not limited to bleeding, infection, abscess, seroma, leak , damage to intestines or any intra-abdominal/intrapelvic structures, hernia formation, chronic pain, need for re-operations or further surgeries, AL, stroke , PE, DVT, pneumonia, organ failures, or even . Procedure Description: Patient was brought in, placed supine on the operating table, SCDs were placed, and preoperative antibiotics administered. After induction of anesthesia, all pressure points were well-padded and timeout was performed. Left arm was tucked. Kowalski was inserted. Local anesthetic was injected at all surgical sites. Incision was made in the left upper quadrant and using an Optiview 12 mm port and the 5 mm 0 scope abdomen was entered and insufflated to 15 mmHg with CO2. Laparoscopy with a 5 mm 30 scope did not identify any injuries. The tattooed right colon lesion was identified. The right colon with adherent to the right wall. Under direct visualization 5 mm ports were placed in left lower quadrant and lower mid abdomen. Another 5 mm port was placed in supero-lateral left upper quadrant. Patient was placed in Trendelenburg and right side up. Appendix was identified. Medial to lateral approach was taken. The ileocolic vessels were identified. The peritoneum was opened. The ileocolic vessel was transected with a white load stapler of [place] 60 at its takeoff. Then, the right colon was mobilized off of the abdominal wall using scissors with complete hemostasis. The right branch of middle colic was identified and that was taken with the LigaSure. The omentum was taken off of the abdominal wall and gastro-colonic ligament was identified and opened using LigaSure as well. I was able to mobilize the transverse colon off of the stomach and the liver. The hepatic flexure was taken down using LigaSure as well fully mobilizing the right and transverse colon. At this point the mesentery was sequentially taken with LigaSure. Using [place] blue load stapler small bowel was transected and the distal ileum and then the transverse colon was transected but it was still pink in the mid transverse. The specimen was fully transected and resected from all surfaces. Dissection then the mesentery was all the way down to the duodenum with care taken not to injure the duodenum. The distal small bowel was placed parallel to the transverse colon and stay sutures of 2-0 silk were used to tie them together. Enterotomy and colotomy was created at both staple lines and Endo ELENA 60 [place] stapler was used 2 to create a enterocolonic anastomosis. A crotch stitch with 2-0 silk was reapplied. The open and was also stapled using a blue load staplers. All abby were fully formed. There was no defects identified. There was no active bleeding. Since the mesenteric defect was large decision was made not to close this. Biologic mesh as above was applied over the stapled anastomosis without encircling it. The remaining omentum was pulled over the anastomosis and left in place without difficulty. Lower midline incision was made and Shane retractor was applied. The specimen was exteriorized. Shane was removed. The abdominal fascia was closed with interrupted #1 Vicryl sutures in a [id number] manner after the peritoneum was closed in a running fashion with 2-0 Vicryl. Wound was fully irrigated and closed in multiple layers with 2-0 Vicryl subcutaneous followed by 4-0 Monocryl subcuticular eventually. Abdomen was re-insufflated was no bleeding and the anastomosis was laying comfortably. The 12 m port site was closed with Endo Close and 0 Vicryl in a [id number] manner. Ports and CO2 were removed under direct visualization. Wounds were thoroughly irrigated with sterile water and skin was closed with 4- 0 Monocryl in subcuticular fashion. Dermabond was applied. Patient was extubated and transferred to recovery room in stable condition. There was complete hemostasis and all counts were correct and the end of the operation 2. FRIEDA,SACHIN MD Nov 06, 2016 13:05
[2016-11-06] MEDS ORDERED: HYDROmorphONE 1 MG/ML SYG IV PRN (14:00)
--- NOTE | 2016-11-06 14:02 | CONS ---
Date/Time of Note Date/Time of Note DATE: 11/06/16 TIME: 14:01 Assessment/Plan Assessment/Plan Chief Complaint/Hosp Course IMPRESSION: 1. Preoperative evaluation prior to surgical resection of colonic neoplasm.- negative troponin x 3/Nl EF by echo 10/18. No cardiac contraindication to proceeding to OR on current medical therapy at moderate CV without further non- invasive evaluation 2. History of supraventricular tachyarrhythmia, question arterioventricular node re-entry tachycardia. 3. Hypertension, under reasonable control. 4. Colonic mass consistent with colonic neoplasm, colon carcinoma. 5. Abdominal pain secondary to abdominal mass. 6. Asthma. 7. Urinary tract infection. 8. Anemia. Recc: -Continue atenolol/verapamil/Benazpril -Pain control -Follow volume status closely -pnding surgery today and would check post-op ecg Problems: Consultation Date/Type/Reason Admit Date/Time Oct 31, 2016 at 04:19 Initial Consult Date 11/05/16 Type of Consultation: Cardiology Reason for Consultation Pre-op Referring Provider: JONH FLANAGAN PRODUCT DEVELOPMENT INTERN Exam/Review of Systems Vital Signs Vitals Vital Signs Date Time Temp Pulse Resp B/P Pulse Ox O2 Delivery O2 Flow Rate FiO2 11/06/16 13:45 68 16 138/64 95 11/06/16 13:35 Room Air 3.0 11/06/16 12:54 97.5 Intake and Output 11/05/16 11/05/16 11/06/16 15:00 23:00 07:00 Intake Total 1240 ml 1050 ml Output Total 1500 ml 1750 ml Balance -260 ml -700 ml Exam Review of Systems: CONSTITUTIONAL: No fevers, chills. PULMONARY: No sob CARDIOVASCULAR: No chest pain/palpitations GASTROINTESTINAL: No nausea/vomiting. GENITOURINARY: No hematuria/dysuria. MUSCULOSKELETAL: No myagias/arthalgias. PSYCHIATRIC: The patient denies depression. NEUROLOGIC: No weakness Constitutional: alert, oriented Psych: no complaints Head: normocephalic ENMT: mucosa pink and moist Neck: jvd (8 cm water), supple Respiratory: clear to auscultation Cardiovascular: regular rate and rhythm Gastrointestinal: non-tender, soft Musculoskeletal: muscle tone (normal) Extremities: edema (none) Neurological: other (No focal deficits) Results Result Diagram: 11/06/16 0415 11/06/16 0415 Results 24 hrs Laboratory Tests Test 11/06/16 04:15 Activated Partial Thromboplast Time 33.9 Anion Gap 17 H Basophils # 0.0 Basophils % 0.3 Blood Urea Nitrogen 10 Calcium Level 9.4 Carbon Dioxide Level 24 Chloride Level 104 Creatinine 0.87 Eosinophils # 0.3 Eosinophils % 3.0 Glucose Level 94 Hematocrit 30.7 L Hemoglobin 9.1 L INR International Normalized Ratio 1.11 Lymphocytes # 2.9 Lymphocytes % 27.8 Magnesium Level 1.9 Mean Corpuscular Hemoglobin 21.5 L Mean Corpuscular Hemoglobin Concent 29.6 L Mean Corpuscular Volume 72.4 L Mean Platelet Volume 8.6 Monocytes # 0.8 Monocytes % 7.5 Neutrophils # 6.4 Neutrophils % 61.1 Nucleated Red Blood Cells # 0.0 Nucleated Red Blood Cells % 0.0 Phosphorus Level 4.1 Platelet Count 519 H Potassium Level 3.6 Prothrombin Time 14.3 H Prothrombin Time Ratio 1.1 Red Blood Count 4.24 Red Cell Distribution Width 23.9 H Sodium Level 141 White Blood Count 10.4 Medications Medications Current Medications Ondansetron HCl (Zofran Inj) 4 mg Q6H PRN IV NAUSEA AND/OR VOMITING Last administered on 10/31/16 11:29; Admin Dose 4 MG; Start 10/31/16 at 08:00 Atenolol (Tenormin) 50 mg BID NGT Last administered on 11/05/16 21:11; Admin Dose 50 MG; Start 10/31/16 at 10:30 Diphenoxylate HCl/ Atropine 1 tab 1 tab Q6H PRN PO DIARRHEA; Start 10/31/16 at 10:30 Potassium Chloride/Dextrose/ Sod Cl 1,000 ml @ 75 mls/hr [id number] IV Last administered on 11/05/16 17:26; Admin Dose 75 MLS/HR; Start 11/05/16 at 16:30 Metronidazole 100 ml @ 100 mls/hr Q8H IVPB ; Start 11/06/16 at 14:00; Stop at 13:59; Status UNV Ciprofloxacin/ Dextrose (Cipro Ivpb) 200 ml @ 200 mls/hr Q12H IVPB ; Start 11/06 at 14:00; Stop 11/07/16 at 13:59; Status UNV Famotidine (Pepcid Iv) 20 mg Q12 IV ; Start 11/06/16 at 21:00; Status UNV Enoxaparin Sodium (Lovenox) 40 mg DAILY@07 SC ; Start 11/07/16 at 07:00; Status UNV Hydromorphone HCl (Dilaudid) 0.5 mg Q3H PRN IV pain 1-5; Start 11/06/16 at 14:00 ; Status UNV Hydromorphone HCl (Dilaudid) 1 mg Q4H PRN IV PAIN LEVEL 6-10; Start 11/06/16 at 14:00; Status UNV ANDRA NEAL Nov 06, 2016 14:02
[2016-11-06 14:50] LABS: ADD UMIC YES; URINE BILIRUBIN (Dip) NEGATIVE (NEGATIVE); URINE BLOOD (Dip) TRACE (NEGATIVE); URINE GLUCOSE (Dip) NEGATIVE (NEGATIVE); URINE KETONES (Dip) NEGATIVE (NEGATIVE); URINE LEUKOCYTE ESTERASE (Dip) NEGATIVE (NEGATIVE); URINE NITRITE (Dip) NEGATIVE (NEGATIVE); URINE TOTAL PROTEIN (Dip) 1+ (NEGATIVE); URINE UROBILINOGEN (Dip) 0.2 E.U./dL (0.1-1.0)
[2016-11-06 14:59] LABS: URINE COLOR YELLOW (YELLOW)
[2016-11-06 15:02] LABS: SQUAMOUS EPITHELIAL CELL,UR RARE; URINE RBCS 0-2 /HPF (0)
[2016-11-06] MEDS: metroNIDAZOLE 500 MG/NS (PMX) 100 ML IVPB SCH ×2 (16:33→21:38)
[2016-11-06] MEDS: CIPROFLOXACIN 400MG/D5W 200 ML IVPB SCH (16:33)
[2016-11-06] MEDS: HYDROmorphONE 1 MG/ML SYG IV PRN (17:50)
[2016-11-06] MEDS: FAMOTIDINE 20 MG INJ IV SCH (20:38)
[2016-11-06] MEDS ORDERED: VITAMIN A & D 5 GM OINT PACKET TOP ONE (20:48)
[2016-11-07 00:02] VITALS: BP 128/63; PULSE 66; RESP 17
[2016-11-07] MEDS: HYDROmorphONE 1 MG/ML SYG IV PRN ×2 (01:10→05:35)
[2016-11-07] MEDS: CIPROFLOXACIN 400MG/D5W 200 ML IVPB SCH (02:19)
[2016-11-07 04:05] VITALS: BP 135/68; PULSE 70; RESP 17
[2016-11-07 05:12] LABS: ADD SCAN DIFF NO
[2016-11-07 05:27] LABS: ABNORMAL IP MESSAGE 1; BASOPHILS % 0.1 % (0.0-2.0); HEMATOCRIT 33.2 % (37.0-47.0); HEMOGLOBIN 10.1 g/dl (12.0-16.0); LYMPHOCYTES # 1.7 10^3/ul (0.8-2.9); LYMPHOCYTES % 10.9 % (15.0-51.0); MEAN CORPUSCULAR HEMOGLOBIN 22.6 pg (29.0-33.0); MEAN CORPUSCULAR HGB CONC 30.4 g/dl (32.0-37.0); MEAN CORPUSCULAR VOLUME 74.3 fl (82.0-101.0); MEAN PLATELET VOLUME 8.8 fl (7.4-10.4); MONOCYTE # 0.7 10^3/ul (0.3-0.9); MONOCYTES % 4.8 % (0.0-11.0); NEUTROPHIL # 12.8 10^3/ul (1.6-7.5); NEUTROPHILS % 83.7 % (39.0-77.0); PLATELET COUNT 488 10^3/UL (140-415); RED BLOOD COUNT 4.47 10^6/ul (4.20-5.40); RED CELL DISTRIBUTION WIDTH 23.2 % (11.5-14.5); WHITE BLOOD COUNT 15.2 10^3/ul (4.8-10.8)
[2016-11-07] MEDS: metroNIDAZOLE 500 MG/NS (PMX) 100 ML IVPB SCH (05:36)
[2016-11-07 05:40] LABS: ALBUMIN 3.1 g/dl (3.3-4.9)
[2016-11-07 05:41] LABS: POTASSIUM 4.3 mmol/L (3.5-5.1)
[2016-11-07 05:43] LABS: ALBUMIN/GLOBULIN RATIO 0.86; BILIRUBIN,INDIRECT 0.3 mg/dl (0-1.1); BILIRUBIN,TOTAL 0.3 mg/dl (0.2-1.3); CREATININE 0.86 mg/dl (0.44-1.00); TOTAL PROTEIN 6.7 g/dl (6.1-8.1)
[2016-11-07 05:44] LABS: CALCIUM 9.4 mg/dl (8.4-10.2)
[2016-11-07 05:45] LABS: MAGNESIUM 1.9 mg/dl (1.7-2.5); PHOSPHORUS 4.3 mg/dl (2.5-4.9)
[2016-11-07] MEDS: ENOXAPARIN 40 MG/0.4 ML SYG SC SCH (07:15)
[2016-11-07] MEDS: D5W-0.45 NACL + KCL 10 MEQ 1,000 ML IV SCH ×2 (07:16→19:01)
[2016-11-07 08:20] VITALS: BP 124/58; RESP 18
[2016-11-07] MEDS ORDERED: morphine 2 MG INJ IV PRN (08:30)
[2016-11-07] MEDS ORDERED: HYDROCODONE/APAP (5/325) TAB PO PRN (08:30)
[2016-11-07] MEDS ORDERED: HYDROmorphONE 1 MG/ML SYG IV PRN (08:30)
[2016-11-07] MEDS: ATENOLOL 50 MG TAB NGT SCH ×2 (08:42→20:23)
[2016-11-07] MEDS: HYDROCODONE/APAP (5/325) TAB PO PRN ×3 (08:43→21:04)
[2016-11-07] MEDS: FAMOTIDINE 20 MG INJ IV SCH ×2 (08:47→20:23)
--- NOTE | 2016-11-07 10:12 | PN ---
Date/Time of Note Date/Time of Note DATE: 11/07/16 TIME: 10:10 Assessment/Plan VTE Prophylaxis VTE Prophylaxis Intervention: SCD's Lines/Catheters IV [facility]ter Type (from [facility]): Peripheral IV Urinary Cath still in place: No Assessment/Plan Chief Complaint/Hosp Course 1. 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 Newly diagnosed. Oncology and surgery on board. S/P laparoscopic right colectomy with anastomosis on 11/06/2016. Continue pain control. Encourage early ambulation and frequent use of incentive spirometry. 2. Microcytic, hypochromic anemia. Most probably secondary to underlying rectal bleed and also from iron deficiency. Transfuse blood products as needed. Continue iron supplements. 3. Paroxysmal supraventricular tachycardia. Continue the patient on beta blockers and verapamil. Cardiology following. 4. Essential hypertension. Continue antihypertensives. 5. Urinary tract infection. Urine culture positive for lactobacillus species as colony count greater than 100,000 units per mL. Continue antibiotics. 6. Morbid obesity. Weight reduction will be advised. 7. Fluid, electrolytes and nutrition. NPO. Continue IVFs. 8. Deep venous thrombosis prophylaxis. Bilateral sequential compression devices. 9. Gastrointestinal prophylaxis with histamine 2 receptor blockers. PLAN: Continue post-operative care. Case discussed with Dr. Calvo. Problems: Subjective 24 Hr Interval Summary Free Text/Dictation Complains of pain. Denies passing any gas. Exam/Review of Systems Vital Signs Vitals Vital Signs Date Time Temp Pulse Resp B/P Pulse Ox O2 Delivery O2 Flow Rate FiO2 11/07/16 08:20 97.4 18 18 124/58 93 11/07/16 04:05 Room Air 11/06/16 20:24 2.0 Intake and Output 11/06/16 11/06/16 11/07/16 15:00 23:00 07:00 Intake Total 1800 ml 400 ml 1225 ml Output Total 300 ml 800 ml 1100 ml Balance 1500 ml -400 ml 125 ml Exam GENERAL: This is an obese female lying in bed in no apparent distress. HEENT: Normocephalic and atraumatic. Eyes: Anicteric sclerae. Conjunctivae clear. ENT: Nasal septum is midline. Oral mucosa is moist. NECK: Supple. No JVD noticed. RESPIRATORY: Bilaterally clear to auscultation. No adventitious breath sounds heard. No use of accessory muscles of respiration. CARDIAC: Regular rate and rhythm. S1 and S2 heard. ABDOMEN: Abdominal binder over the surgical dressings. GENITOURINARY: Deferred. EXTREMITIES: No cyanosis, no clubbing, no edema. Peripheral pulses are palpable. NEUROLOGIC: The patient is awake, alert and oriented. Cranial nerves are grossly intact. Results Result Diagram: 11/07/16 0435 11/07/16 0435 Results 24 hrs Laboratory Tests Test 11/06/16 13:55 11/07/16 04:35 Urine Bilirubin NEGATIVE Urine Clarity CLEAR Urine Color YELLOW Urine Fine Granular Casts RARE Urine Glucose NEGATIVE Urine Hemoglobin TRACE Urine Hyaline Casts RARE Urine Ketones NEGATIVE Urine Leukocyte Esterase NEGATIVE Urine Microscopic RBC 0-2 Urine Microscopic WBC 0-2 Urine Nitrite NEGATIVE Urine Specific [place] >=1.030 H Urine Squamous Epithelial Cells RARE Urine Total Protein 1+ H Urine Urobilinogen 0.2 E.U./dL Urine pH 5.5 Alanine Aminotransferase (ALT/SGPT) 20 Albumin 3.1 L Albumin/Globulin Ratio 0.86 Alkaline Phosphatase 67 Anion Gap 13 Aspartate Amino Transf (AST/SGOT) 19 Basophils # 0.0 Basophils % 0.1 Blood Urea Nitrogen 12 Calcium Level 9.4 Carbon Dioxide Level 25 Chloride Level 103 Creatinine 0.86 Direct Bilirubin 0.00 Eosinophils # 0.0 Eosinophils % 0.0 Globulin 3.60 H Glucose Level 133 Hematocrit 33.2 L Hemoglobin 10.1 L Indirect Bilirubin 0.3 Lymphocytes # 1.7 Lymphocytes % 10.9 L Magnesium Level 1.9 Mean Corpuscular Hemoglobin 22.6 L Mean Corpuscular Hemoglobin Concent 30.4 L Mean Corpuscular Volume 74.3 L Mean Platelet Volume 8.8 Monocytes # 0.7 Monocytes % 4.8 Neutrophils # 12.8 H Neutrophils % 83.7 H Nucleated Red Blood Cells # 0.0 Nucleated Red Blood Cells % 0.0 Phosphorus Level 4.3 Platelet Count 488 H Potassium Level 4.3 Red Blood Count 4.47 Red Cell Distribution Width 23.2 H Sodium Level 137 Total Bilirubin 0.3 Total Protein 6.7 White Blood Count 15.2 #H Medications Medications Current Medications Ondansetron HCl (Zofran Inj) 4 mg Q6H PRN IV NAUSEA AND/OR VOMITING Last administered on 10/31/16t 11:29; Admin Dose 4 MG; Start 10/31/16 at 08:00 Atenolol (Tenormin) 50 mg BID NGT Last administered on 11/07/16 08:42; Admin Dose 50 MG; Start 10/31/16 at 10:30 Diphenoxylate HCl/ Atropine 1 tab 1 tab Q6H PRN PO DIARRHEA; Start 10/31/16 at 10:30 Potassium Chloride/Dextrose/ Sod Cl 1,000 ml @ 75 mls/hr [id number] IV Last administered on 11/07/16 07:16; Admin Dose 75 MLS/HR; Start 11/05/16 at 16:30 Metronidazole 100 ml @ 100 mls/hr Q8H IVPB Last administered on 11/07/16 05:36 ; Admin Dose 100 MLS/HR; Start 11/06/16 at 14:00; Stop 11/07/16 at 13:59 Ciprofloxacin/ Dextrose (Cipro Ivpb) 200 ml @ 200 mls/hr Q12H IVPB Last administered on 11/07/16 02:19; Admin Dose 200 MLS/HR; Start 11/06/16 at 14:00; Stop 11/07/16 at 13:59 Famotidine (Pepcid Iv) 20 mg Q12 IV Last administered on 11/07/16 08:47; Admin Dose 20 MG; Start 11/06/16 at 21:00 Enoxaparin Sodium (Lovenox) 40 mg DAILY@07 SC Last administered on 11/07/16 07: 15; Admin Dose 40 MG; Start 11/07/16 at 07:00 Hydromorphone HCl (Dilaudid) 0.5 mg Q3H PRN IV pain 1-5 Last administered on 21:00; Admin Dose 0.5 MG; Start 11/06/16 at 14:00 Hydromorphone HCl (Dilaudid) 1 mg Q4H PRN IV PAIN LEVEL 6-10 Last administered on 11/07/16 05:35; Admin Dose 1 MG; Start 11/06/16 at 14:00 Acetaminophen/ Hydrocodone Bitart ([place] (5/325)) 2 tab Q4H PRN PO Pain 6-10 Last administered on 11/07/16 08:43; Admin Dose 2 TAB; Start 11/07/16 at 08:30 Acetaminophen/ Hydrocodone Bitart ([place] (5/325)) 1 tab Q4H PRN PO Pain 1-5; Start 11/07/16 at 08:30 Hydromorphone HCl (Dilaudid) 0.5 mg Q2 PRN IV Breakthrough PAIN; Start 11/07/16 at 08:30 Morphine Sulfate (morphine) 2 mg Q2H PRN IV Breakthrough PAIN; Start 11/07/16 at 08:30 JONH FLANAGAN NP Nov 07, 2016 10:11
[2016-11-07 10:51] LABS: ADD UMIC YES; URINE BILIRUBIN (Dip) NEGATIVE (NEGATIVE); URINE BLOOD (Dip) NEGATIVE (NEGATIVE); URINE COLOR LT. YELLOW (YELLOW); URINE GLUCOSE (Dip) NEGATIVE (NEGATIVE); URINE KETONES (Dip) NEGATIVE (NEGATIVE); URINE LEUKOCYTE ESTERASE (Dip) 1+ (NEGATIVE); URINE NITRITE (Dip) NEGATIVE (NEGATIVE); URINE TOTAL PROTEIN (Dip) NEGATIVE (NEGATIVE); URINE UROBILINOGEN (Dip) 0.2 E.U./dL (0.1-1.0)
[2016-11-07 11:04] LABS: URINE RBCS 0-2 /HPF (0)
[2016-11-07 11:05] LABS: BACTERIA,URINE FEW
--- NOTE | 2016-11-07 12:21 | CONS ---
Date/Time of Note Date/Time of Note DATE: 11/07/16 TIME: 12:20 Assessment/Plan Assessment/Plan Chief Complaint/Hosp Course 61 yo with obstructing ascending colon mass near the cecum that is now confirmed as poorly differentiated adenocarcinoma. -pt will need surgical resection. Appreciate surgical recommendations -further recommendations regarding chemotherapy will depend on the stage and characteristics of the tumor. -continue IV iron for iron deficiency anemia. Ferrlecit 5 days total have been ordered. -will order CXR to evaluate for thoracic disease Approximately 40 min were spent at patient's bedside and in coordination of her care Problems: Consultation Date/Type/Reason Admit Date/Time Oct 31, 2016 at 04:19 Initial Consult Date 11/05/16 Type of Consultation: Oncology Reason for Consultation colon cancer Referring Provider: JONH FLANAGAN AUTO SERVICE REPRESENTATIVE 24 HR Interval Summary Free Text/Dictation pain is under control. still npo Exam/Review of Systems Vital Signs Vitals Vital Signs Date Time Temp Pulse Resp B/P Pulse Ox O2 Delivery O2 Flow Rate FiO2 11/07/16 08:20 97.4 18 18 124/58 93 11/07/16 04:05 Room Air 11/06/16 20:24 2.0 Intake and Output 11/06/16 11/06/16 11/07/16 15:00 23:00 07:00 Intake Total 1800 ml 400 ml 1225 ml Output Total 300 ml 800 ml 1100 ml Balance 1500 ml -400 ml 125 ml Exam Constitutional: alert, oriented Psych: no complaints Head: atraumatic, normocephalic Eyes: nl conjunctiva ENMT: nl external ears & nose Neck: non-tender, supple Cardiovascular: regular rate and rhythm Gastrointestinal: surgical scars Musculoskeletal: nl extremities to inspection, nl gait and stance Results Result Diagram: 11/07/16 0435 11/07/16 0435 Results 24 hrs Laboratory Tests Test 11/06/16 13:55 11/07/16 04:35 11/07/16 09:15 Urine Bilirubin NEGATIVE NEGATIVE Urine Clarity CLEAR CLEAR Urine Color YELLOW LT. YELLOW Urine Fine Granular Casts RARE Urine Glucose NEGATIVE NEGATIVE Urine Hemoglobin TRACE NEGATIVE Urine Hyaline Casts RARE Urine Ketones NEGATIVE NEGATIVE Urine Leukocyte Esterase NEGATIVE 1+ H Urine Microscopic RBC 0-2 0-2 Urine Microscopic WBC 0-2 10-25 Urine Nitrite NEGATIVE NEGATIVE Urine Specific [place] >=1.030 H 1.020 Urine Squamous Epithelial Cells RARE Urine Total Protein 1+ H NEGATIVE Urine Urobilinogen 0.2 E.U./dL 0.2 E.U./dL Urine pH 5.5 6.5 Alanine Aminotransferase (ALT/SGPT) 20 Albumin 3.1 L Albumin/Globulin Ratio 0.86 Alkaline Phosphatase 67 Anion Gap 13 Aspartate Amino Transf (AST/SGOT) 19 Basophils # 0.0 Basophils % 0.1 Blood Urea Nitrogen 12 Calcium Level 9.4 Carbon Dioxide Level 25 Chloride Level 103 Creatinine 0.86 Direct Bilirubin 0.00 Eosinophils # 0.0 Eosinophils % 0.0 Globulin 3.60 H Glucose Level 133 Hematocrit 33.2 L Hemoglobin 10.1 L Indirect Bilirubin 0.3 Lymphocytes # 1.7 Lymphocytes % 10.9 L Magnesium Level 1.9 Mean Corpuscular Hemoglobin 22.6 L Mean Corpuscular Hemoglobin Concent 30.4 L Mean Corpuscular Volume 74.3 L Mean Platelet Volume 8.8 Monocytes # 0.7 Monocytes % 4.8 Neutrophils # 12.8 H Neutrophils % 83.7 H Nucleated Red Blood Cells # 0.0 Nucleated Red Blood Cells % 0.0 Phosphorus Level 4.3 Platelet Count 488 H Potassium Level 4.3 Red Blood Count 4.47 Red Cell Distribution Width 23.2 H Sodium Level 137 Total Bilirubin 0.3 Total Protein 6.7 White Blood Count 15.2 #H Urine Bacteria FEW Urine Epithelial Cells FEW Medications Medications Current Medications Ondansetron HCl (Zofran Inj) 4 mg Q6H PRN IV NAUSEA AND/OR VOMITING Last administered on 10/31/16 11:29; Admin Dose 4 MG; Start 10/31/16 at 08:00 Atenolol (Tenormin) 50 mg BID NGT Last administered on 11/07/16 08:42; Admin Dose 50 MG; Start 10/31/16 at 10:30 Diphenoxylate HCl/ Atropine 1 tab 1 tab Q6H PRN PO DIARRHEA; Start 10/31/16 at 10:30 Potassium Chloride/Dextrose/ Sod Cl 1,000 ml @ 75 mls/hr [id number] IV Last administered on 11/07/16 07:16; Admin Dose 75 MLS/HR; Start 11/05/16 at 16:30 Metronidazole 100 ml @ 100 mls/hr Q8H IVPB Last administered on 11/07/16 05:36 ; Admin Dose 100 MLS/HR; Start 11/06/16 at 14:00; Stop 11/07/16 at 13:59 Ciprofloxacin/ Dextrose (Cipro Ivpb) 200 ml @ 200 mls/hr Q12H IVPB Last administered on 11/07/16 02:19; Admin Dose 200 MLS/HR; Start 11/06/16 at 14:00; Stop 11/07/16 at 13:59 Famotidine (Pepcid Iv) 20 mg Q12 IV Last administered on 11/07/16 08:47; Admin Dose 20 MG; Start 11/06/16 at 21:00 Enoxaparin Sodium (Lovenox) 40 mg DAILY@07 SC Last administered on 11/07/16 07: 15; Admin Dose 40 MG; Start 11/07/16 at 07:00 Hydromorphone HCl (Dilaudid) 0.5 mg Q3H PRN IV pain 1-5 Last administered on 21:00; Admin Dose 0.5 MG; Start 11/06/16 at 14:00 Hydromorphone HCl (Dilaudid) 1 mg Q4H PRN IV PAIN LEVEL 6-10 Last administered on 11/07/16 05:35; Admin Dose 1 MG; Start 11/06/16 at 14:00 Acetaminophen/ Hydrocodone Bitart ([place] (5/325)) 2 tab Q4H PRN PO Pain 6-10 Last administered on 11/07/16 08:43; Admin Dose 2 TAB; Start 11/07/16 at 08:30 Acetaminophen/ Hydrocodone Bitart ([place] (5/325)) 1 tab Q4H PRN PO Pain 1-5; Start 11/07/16 at 08:30 Hydromorphone HCl (Dilaudid) 0.5 mg Q2 PRN IV Breakthrough PAIN; Start 11/07/16 at 08:30 Morphine Sulfate (morphine) 2 mg Q2H PRN IV Breakthrough PAIN; Start 11/07/16 at 08:30 SKYLER LONGORIA M.D. Nov 07, 2016 12:21
--- NOTE | 2016-11-07 13:39 | CONS ---
Date/Time of Note Date/Time of Note DATE: 11/07/16 TIME: 13:35 Assessment/Plan Assessment/Plan Chief Complaint/Hosp Course IMPRESSION: 1. Preoperative evaluation prior to surgical resection of colonic neoplasm.- negative troponin x 3/Nl EF by echo 10/18. No cardiac contraindication to proceeding to OR on current medical therapy at moderate CV without further non- invasive evaluation 2. History of supraventricular tachyarrhythmia, question arterioventricular node re-entry tachycardia. 3. Hypertension, under reasonable control. 4. Colonic mass consistent with colonic neoplasm, colon carcinoma.-Now s/p resection POD#1 5. Abdominal pain secondary to abdominal mass. 6. Asthma. 7. Urinary tract infection. 8. Anemia. Recc: -Continue atenolol and resume benazepril as tolerated -Pain control -Follow volume status closely -Routine post-op care -F/U path from resection -post-op ecg with anterolateral t wave flat/no chest pain. Will check troponin x 1 Problems: Consultation Date/Type/Reason Admit Date/Time Oct 31, 2016 at 04:19 Initial Consult Date 11/05/16 Type of Consultation: Cardiology Reason for Consultation Pre-op Referring Provider: JONH FLANAGAN [employer] T[employer] SPECIALIST Exam/Review of Systems Vital Signs Vitals Vital Signs Date Time Temp Pulse Resp B/P Pulse Ox O2 Delivery O2 Flow Rate FiO2 11/07/16 08:20 97.4 18 18 124/58 93 11/07/16 04:05 Room Air 11/06/16 20:24 2.0 Intake and Output 11/06/16 11/06/16 11/07/16 15:00 23:00 07:00 Intake Total 1800 ml 400 ml 1225 ml Output Total 300 ml 800 ml 1100 ml Balance 1500 ml -400 ml 125 ml Exam Review of Systems: CONSTITUTIONAL: No fevers, chills. PULMONARY: No sob CARDIOVASCULAR: No chest pain/palpitations GASTROINTESTINAL: No nausea/vomiting. GENITOURINARY: No hematuria/dysuria. MUSCULOSKELETAL: No myagias/arthalgias. PSYCHIATRIC: The patient denies depression. NEUROLOGIC: No weakness Constitutional: alert, oriented Head: normocephalic ENMT: mucosa pink and moist Neck: jvd (8-9 cm water), supple Respiratory: diminished breath sounds Cardiovascular: regular rate and rhythm Gastrointestinal: non-tender, soft Musculoskeletal: muscle tone Extremities: normal pulses Neurological: other (No focal deficits) Results Result Diagram: 11/07/16 0435 11/07/16 0435 Results 24 hrs Laboratory Tests Test 11/06/16 13:55 11/07/16 04:35 11/07/16 09:15 Urine Bilirubin NEGATIVE NEGATIVE Urine Clarity CLEAR CLEAR Urine Color YELLOW LT. YELLOW Urine Fine Granular Casts RARE Urine Glucose NEGATIVE NEGATIVE Urine Hemoglobin TRACE NEGATIVE Urine Hyaline Casts RARE Urine Ketones NEGATIVE NEGATIVE Urine Leukocyte Esterase NEGATIVE 1+ H Urine Microscopic RBC 0-2 0-2 Urine Microscopic WBC 0-2 10-25 Urine Nitrite NEGATIVE NEGATIVE Urine Specific [place] >=1.030 H 1.020 Urine Squamous Epithelial Cells RARE Urine Total Protein 1+ H NEGATIVE Urine Urobilinogen 0.2 E.U./dL 0.2 E.U./dL Urine pH 5.5 6.5 Alanine Aminotransferase (ALT/SGPT) 20 Albumin 3.1 L Albumin/Globulin Ratio 0.86 Alkaline Phosphatase 67 Anion Gap 13 Aspartate Amino Transf (AST/SGOT) 19 Basophils # 0.0 Basophils % 0.1 Blood Urea Nitrogen 12 Calcium Level 9.4 Carbon Dioxide Level 25 Chloride Level 103 Creatinine 0.86 Direct Bilirubin 0.00 Eosinophils # 0.0 Eosinophils % 0.0 Globulin 3.60 H Glucose Level 133 Hematocrit 33.2 L Hemoglobin 10.1 L Indirect Bilirubin 0.3 Lymphocytes # 1.7 Lymphocytes % 10.9 L Magnesium Level 1.9 Mean Corpuscular Hemoglobin 22.6 L Mean Corpuscular Hemoglobin Concent 30.4 L Mean Corpuscular Volume 74.3 L Mean Platelet Volume 8.8 Monocytes # 0.7 Monocytes % 4.8 Neutrophils # 12.8 H Neutrophils % 83.7 H Nucleated Red Blood Cells # 0.0 Nucleated Red Blood Cells % 0.0 Phosphorus Level 4.3 Platelet Count 488 H Potassium Level 4.3 Red Blood Count 4.47 Red Cell Distribution Width 23.2 H Sodium Level 137 Total Bilirubin 0.3 Total Protein 6.7 White Blood Count 15.2 #H Urine Bacteria FEW Urine Epithelial Cells FEW Medications Medications Current Medications Ondansetron HCl (Zofran Inj) 4 mg Q6H PRN IV NAUSEA AND/OR VOMITING Last administered on 10/31/16t 11:29; Admin Dose 4 MG; Start 10/31/16 at 08:00 Atenolol (Tenormin) 50 mg BID NGT Last administered on 11/07/16 08:42; Admin Dose 50 MG; Start 10/31/16 at 10:30 Diphenoxylate HCl/ Atropine 1 tab 1 tab Q6H PRN PO DIARRHEA; Start 10/31/16 at 10:30 Potassium Chloride/Dextrose/ Sod Cl 1,000 ml @ 75 mls/hr [id number] IV Last administered on 11/07/16 07:16; Admin Dose 75 MLS/HR; Start 11/05/16 at 16:30 Metronidazole 100 ml @ 100 mls/hr Q8H IVPB Last administered on 11/07/16 05:36 ; Admin Dose 100 MLS/HR; Start 11/06/16 at 14:00; Stop 11/07/16 at 13:59 Ciprofloxacin/ Dextrose (Cipro Ivpb) 200 ml @ 200 mls/hr Q12H IVPB Last administered on 11/07/16 02:19; Admin Dose 200 MLS/HR; Start 11/06/16 at 14:00; Stop 11/07/16 at 13:59 Famotidine (Pepcid Iv) 20 mg Q12 IV Last administered on 11/07/16 08:47; Admin Dose 20 MG; Start 11/06/16 at 21:00 Enoxaparin Sodium (Lovenox) 40 mg DAILY@07 SC Last administered on 11/07/16 07: 15; Admin Dose 40 MG; Start 11/07/16 at 07:00 Hydromorphone HCl (Dilaudid) 0.5 mg Q3H PRN IV pain 1-5 Last administered on 21:00; Admin Dose 0.5 MG; Start 11/06/16 at 14:00 Hydromorphone HCl (Dilaudid) 1 mg Q4H PRN IV PAIN LEVEL 6-10 Last administered on 11/07/16 05:35; Admin Dose 1 MG; Start 11/06/16 at 14:00 Acetaminophen/ Hydrocodone Bitart ([place] (5/325)) 2 tab Q4H PRN PO Pain 6-10 Last administered on 11/07/16 08:43; Admin Dose 2 TAB; Start 11/07/16 at 08:30 Acetaminophen/ Hydrocodone Bitart ([place] (5/325)) 1 tab Q4H PRN PO Pain 1-5; Start 11/07/16 at 08:30 Hydromorphone HCl (Dilaudid) 0.5 mg Q2 PRN IV Breakthrough PAIN; Start 11/07/16 at 08:30 Morphine Sulfate (morphine) 2 mg Q2H PRN IV Breakthrough PAIN; Start 11/07/16 at 08:30 ANDRA NEAL Nov 07, 2016 13:39
--- NOTE | 2016-11-07 20:34 | RADRPT ---
Vent Rate: 59 bpm RR Interval: 0 msec RI Interval: 146 msec QRS Duration: 110 msec QT Interval: 494 msec QTC Interval: 489 msec P-R-T [place]: 33 - 19 - 20 degrees Sinus bradycardia with sinus arrhythmia Cannot rule out Anterior infarct , age undetermined Abnormal ECG Electronically Signed By: Tapan Cleary [id number]
[2016-11-07 20:55] VITALS: BP 132/78; RESP 18
[2016-11-08] MEDS: D5W-0.45 NACL + KCL 10 MEQ 1,000 ML IV SCH ×2 (04:30→15:02)
[2016-11-08 05:34] LABS: ADD SCAN DIFF NO
[2016-11-08 05:50] LABS: ABNORMAL IP MESSAGE 1; HEMATOCRIT 34.4 % (37.0-47.0); MEAN CORPUSCULAR HEMOGLOBIN 22.2 pg (29.0-33.0); MEAN CORPUSCULAR HGB CONC 29.1 g/dl (32.0-37.0); MEAN CORPUSCULAR VOLUME 76.3 fl (82.0-101.0); MEAN PLATELET VOLUME 8.8 fl (7.4-10.4); PLATELET COUNT 502 10^3/UL (140-415); RED BLOOD COUNT 4.51 10^6/ul (4.20-5.40); RED CELL DISTRIBUTION WIDTH 24.5 % (11.5-14.5); WHITE BLOOD COUNT 12.2 10^3/ul (4.8-10.8)
[2016-11-08 05:58] LABS: ALBUMIN 2.9 g/dl (3.3-4.9)
[2016-11-08 05:59] LABS: POTASSIUM 3.9 mmol/L (3.5-5.1)
[2016-11-08 06:01] LABS: ALBUMIN/GLOBULIN RATIO 0.82; CREATININE 0.96 mg/dl (0.44-1.00); TOTAL PROTEIN 6.4 g/dl (6.1-8.1)
[2016-11-08 06:02] LABS: CALCIUM 9.1 mg/dl (8.4-10.2)
[2016-11-08] MEDS: ENOXAPARIN 40 MG/0.4 ML SYG SC SCH (06:21)
[2016-11-08 08:33] VITALS: BP 154/79; RESP 18
[2016-11-08] MEDS: FAMOTIDINE 20 MG INJ IV SCH ×2 (08:36→21:38)
[2016-11-08] MEDS: ATENOLOL 50 MG TAB NGT SCH ×2 (08:36→21:38)
[2016-11-08] MEDS: HYDROCODONE/APAP (5/325) TAB PO PRN ×3 (10:10→22:17)
--- NOTE | 2016-11-08 10:27 | PN ---
Date/Time of Note Date/Time of Note DATE: 11/07/16 TIME: 10:24 Assessment/Plan Lines/Catheters IV Catheter Type (from [facility]): Peripheral IV Kowalski in Place (from [facility]): No Assessment/Plan Chief Complaint/Hosp Course 1. 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 s/p Lap right colectomy 11/06. -await path -oob/ambulate 2. Epigastric incisional hernia, reducible -repair after weight loss at later time 3. History of rectal bleed, possibly secondary to hemorrhoids & colon cancer -monitor h/h 4. Anemia secondary to above s/p 2 u pRBCs. 5. Morbid obesity. The patient is highly encouraged to continue her nutritional optimization and exercise. 6. Hypertension. Continue diet and medication control and encourage weight loss. 7. Congestive heart failure history. Continue judicious fluid management and cardiac optimization. 8. Asthma history. Continue medical optimization. Encourage weight loss. 9. Possible urinary tract infection. Continue antibiotics. 10. Thrombocytosis secondary to CT findings probably. -monitor 11. Diverticulosis. Continue encourage nutritional and lifestyle optimization. 12. Hemorrhoids, uninflamed currently. Thank you, Late entry 11/07 Problems: Subjective 24 Hr Interval Summary s/p Lap right colectomy 11/06. Min pain. No bowel function. No fever or chills. No cp or sob. No cough. No sparrow. No dizziness, visual or neuro changes. No dysuria. Exam/Review of Systems Vital Signs Vitals Vital Signs Date Time Temp Pulse Resp B/P Pulse Ox O2 Delivery O2 Flow Rate FiO2 11/08/16 08:33 97.8 52 18 154/79 93 11/07/16 04:05 Room Air 11/06/16 20:24 2.0 Intake and Output 11/07/16 11/07/16 11/08/16 15:00 23:00 07:00 Intake Total 175 ml 800 ml 1132 ml Output Total 600 ml 1000 ml Balance 175 ml 200 ml 132 ml Exam Free Text/Dictation GENERAL: No acute distress. Morbidly obese. PSYCHIATRIC: Flat affect. HEENT: Pupils equal, reactive. No scleral icterus. Mucous membranes are somewhat moist. NECK: Supple. No JVD. PULMONARY: Normal respiratory effort. No wheezing. CARDIAC: S1, S2 present. ABDOMEN: Soft, obese, minimally tender. No rebound, no guarding, not rigid. Epigastric reducible hernia EXTREMITIES: No edema. VASCULAR: Cap refill less than 2 seconds. NEUROLOGIC: Alert, oriented, moves all 4 extremities grossly. LYMPHATICS: No inguinal, cervical, periauricular, or clavicular palpable lymph nodes. RECTAL: No masses, lesions, or induration. Small hemorrhoids. No blood. Results Result Diagram: 11/08/16 0432 11/08/16 0432 SACHIN MALAVE MD Nov 08, 2016 10:27
--- NOTE | 2016-11-08 10:28 | PN ---
Date/Time of Note Date/Time of Note DATE: 11/08/16 TIME: 10:27 Assessment/Plan Lines/Catheters IV Catheter Type (from [facility]): Peripheral IV Kowalski in Place (from [facility]): No Assessment/Plan Chief Complaint/Hosp Course 1. 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 s/p Lap right colectomy 11/06. -await path -oob/ambulate 2. Epigastric incisional hernia, reducible -repair after weight loss at later time 3. History of rectal bleed, possibly secondary to hemorrhoids & colon cancer -monitor h/h 4. Anemia secondary to above s/p 2 u pRBCs. 5. Morbid obesity. The patient is highly encouraged to continue her nutritional optimization and exercise. 6. Hypertension. Continue diet and medication control and encourage weight loss. 7. Congestive heart failure history. Continue judicious fluid management and cardiac optimization. 8. Asthma history. Continue medical optimization. Encourage weight loss. 9. Possible urinary tract infection. Continue antibiotics. 10. Thrombocytosis secondary to CT findings probably. -monitor 11. Diverticulosis. Continue encourage nutritional and lifestyle optimization. 12. Hemorrhoids, uninflamed currently. Thank you, Problems: Subjective 24 Hr Interval Summary s/p Lap right colectomy 11/06. Min pain. No bowel function. No fever or chills. No cp or sob. No cough. No sparrow. No dizziness, visual or neuro changes. No dysuria. Exam/Review of Systems Vital Signs Vitals Vital Signs Date Time Temp Pulse Resp B/P Pulse Ox O2 Delivery O2 Flow Rate FiO2 11/08/16 08:33 97.8 52 18 154/79 93 11/07/16 04:05 Room Air 11/06/16 20:24 2.0 Intake and Output 11/07/16 11/07/16 11/08/16 15:00 23:00 07:00 Intake Total 175 ml 800 ml 1132 ml Output Total 600 ml 1000 ml Balance 175 ml 200 ml 132 ml Exam Free Text/Dictation GENERAL: No acute distress. Morbidly obese. PSYCHIATRIC: Flat affect. HEENT: Pupils equal, reactive. No scleral icterus. Mucous membranes are somewhat moist. NECK: Supple. No JVD. PULMONARY: Normal respiratory effort. No wheezing. CARDIAC: S1, S2 present. ABDOMEN: Soft, obese, minimally tender. No rebound, no guarding, not rigid. Epigastric reducible hernia EXTREMITIES: No edema. VASCULAR: Cap refill less than 2 seconds. NEUROLOGIC: Alert, oriented, moves all 4 extremities grossly. LYMPHATICS: No inguinal, cervical, periauricular, or clavicular palpable lymph nodes. RECTAL: No masses, lesions, or induration. Small hemorrhoids. No blood. Results Result Diagram: 11/08/16 0432 11/08/16 0432 SACHIN MALAVE MD Nov 08, 2016 10:28
[2016-11-08 10:31] LABS: LYMPHOCYTES # 3.7 10^3/ul (0.8-2.9); MONOCYTE # 0.4 10^3/ul (0.3-0.9); NEUTROPHIL # 8.1 10^3/ul (1.6-7.5)
[2016-11-08 10:32] LABS: BASOPHIL # 0.1 10^3/ul (0.0-0.1)
--- NOTE | 2016-11-08 10:37 | PN ---
Date/Time of Note Date/Time of Note DATE: 11/08/16 TIME: 10:35 Assessment/Plan VTE Prophylaxis VTE Prophylaxis Intervention: SCD's Lines/Catheters [facility] Peripheral IV Urinary Cath still in place: No Assessment/Plan Chief Complaint/Hosp Course 1. 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 Newly diagnosed. Oncology and surgery on board. S/P laparoscopic right colectomy with anastomosis on 11/06/2016. Continue pain control. Encourage early ambulation and frequent use of incentive spirometry. 2. Microcytic, hypochromic anemia. Most probably secondary to underlying rectal bleed and also from iron deficiency. Transfuse blood products as needed. Continue iron supplements. 3. Paroxysmal supraventricular tachycardia. Continue the patient on beta blockers and verapamil. Cardiology following. 4. Essential hypertension. Continue antihypertensives. 5. Urinary tract infection. Urine culture positive for lactobacillus species as colony count greater than 100,000 units per mL. Continue antibiotics. 6. Morbid obesity. Weight reduction will be advised. 7. Fluid, electrolytes and nutrition. NPO. Continue IVFs. 8. Deep venous thrombosis prophylaxis. Bilateral sequential compression devices. 9. Gastrointestinal prophylaxis with histamine 2 receptor blockers. PLAN: Continue post-operative care. Case discussed with Dr. Calvo. Problems: Subjective 24 Hr Interval Summary Free Text/Dictation Pain well controlled. Complains of occasional palpitations. Exam/Review of Systems Vital Signs Vitals Vital Signs Date Time Temp Pulse Resp B/P Pulse Ox O2 Delivery O2 Flow Rate FiO2 11/08/16 08:33 97.8 52 18 154/79 93 11/07/16 04:05 Room Air 11/06/16 20:24 2.0 Intake and Output 11/07/16 11/07/16 11/08/16 15:00 23:00 07:00 Intake Total 175 ml 800 ml 1132 ml Output Total 600 ml 1000 ml Balance 175 ml 200 ml 132 ml Exam GENERAL: This is an obese female lying in bed in no apparent distress. HEENT: Normocephalic and atraumatic. Eyes: Anicteric sclerae. Conjunctivae clear. ENT: Nasal septum is midline. Oral mucosa is moist. NECK: Supple. No JVD noticed. RESPIRATORY: Bilaterally clear to auscultation. No adventitious breath sounds heard. No use of accessory muscles of respiration. CARDIAC: Regular rate and rhythm. S1 and S2 heard. ABDOMEN: Abdominal binder over the surgical dressings. GENITOURINARY: Deferred. EXTREMITIES: No cyanosis, no clubbing, no edema. Peripheral pulses are palpable. NEUROLOGIC: The patient is awake, alert and oriented. Cranial nerves are grossly intact. Results Result Diagram: 11/08/16 0432 11/08/16 043 Results 24 hrs Laboratory Tests Test 11/07/16 15:45 11/08/16 04:32 11/08/16 04:40 Troponin I < 0.012 Alanine Aminotransferase (ALT/SGPT) 20 Albumin 2.9 L Albumin/Globulin Ratio 0.82 Alkaline Phosphatase 63 Anion Gap 16 Aspartate Amino Transf (AST/SGOT) 23 Basophils # 0.1 Basophils % 1.0 Blood Urea Nitrogen 14 Calcium Level 9.1 Carbon Dioxide Level 24 Chloride Level 105 Creatinine 0.96 Differential Comment MANUAL DIFF Direct Bilirubin 0.00 Eosinophils # Eosinophils % Globulin 3.50 H Glucose Level 77 # Hematocrit 34.4 L Hemoglobin 10.0 L Indirect Bilirubin 0.0 Lymphocytes # 3.7 H Lymphocytes % 30.0 Mean Corpuscular Hemoglobin 22.2 L Mean Corpuscular Hemoglobin Concent 29.1 L Mean Corpuscular Volume 76.3 L Mean Platelet Volume 8.8 Monocytes # 0.4 Monocytes % 3.0 Neutrophils # 8.1 H Neutrophils % 66.0 Nucleated Red Blood Cells # 0.0 Nucleated Red Blood Cells % 0.0 Platelet Count 502 H Potassium Level 3.9 Red Blood Count 4.51 Red Cell Distribution Width 24.5 H Sodium Level 141 Total Bilirubin 0.0 L Total Protein 6.4 White Blood Count 12.2 H Magnesium Level 2.0 Medications Medications Current Medications Ondansetron HCl (Zofran Inj) 4 mg Q6H PRN IV NAUSEA AND/OR VOMITING Last administered on 10/31/16 11:29; Admin Dose 4 MG; Start 10/31/16 at 08:00 Atenolol (Tenormin) 50 mg BID NGT Last administered on 11/08/16 08:36; Admin Dose 50 MG; Start 10/31/16 at 10:30 Diphenoxylate HCl/ Atropine 1 tab 1 tab Q6H PRN PO DIARRHEA; Start 10/31/16 at 10:30 Potassium Chloride/Dextrose/ Sod Cl (D5-1/2ns + KCl 10 Meq) 1,000 ml @ 75 mls/ hr [id number] IV Last administered on 11/08/16 04:30; Admin Dose 75 MLS/HR; Start 11/05/16 at 16:30 Famotidine (Pepcid Iv) 20 mg Q12 IV Last administered on 11/08/16 08:36; Admin Dose 20 MG; Start 11/06/16 at 21:00 Enoxaparin Sodium (Lovenox) 40 mg DAILY@07 SC Last administered on 11/08/16 06 :21; Admin Dose 40 MG; Start 11/07/16 at 07:00 Hydromorphone HCl (Dilaudid) 0.5 mg Q3H PRN IV pain 1-5 Last administered on 21:00; Admin Dose 0.5 MG; Start 11/06/16 at 14:00 Hydromorphone HCl (Dilaudid) 1 mg Q4H PRN IV PAIN LEVEL 6-10 Last administered on 11/07/16 05:35; Admin Dose 1 MG; Start 11/06/16 at 14:00 Acetaminophen/ Hydrocodone Bitart ([place] (5/325)) 2 tab Q4H PRN PO Pain 6-10 Last administered on 11/08/16 10:10; Admin Dose 2 TAB; Start 11/07/16 at 08:30 Acetaminophen/ Hydrocodone Bitart ([place] (5/325)) 1 tab Q4H PRN PO Pain 1-5 Last administered on 11/08/16 04:43; Admin Dose 1 TAB; Start 11/07/16 at 08:30 Hydromorphone HCl (Dilaudid) 0.5 mg Q2 PRN IV Breakthrough PAIN; Start 11/07/16 at 08:30 Morphine Sulfate (morphine) 2 mg Q2H PRN IV Breakthrough PAIN; Start 11/07/16 at 08:30 JONH FLANAGAN NP Nov 08, 2016 10:37
--- NOTE | 2016-11-08 10:56 | CONS ---
Date/Time of Note Date/Time of Note DATE: 11/08/16 TIME: 10:55 Assessment/Plan Assessment/Plan Chief Complaint/Hosp Course 61 yo with obstructing ascending colon mass near the cecum that is now confirmed as poorly differentiated adenocarcinoma. -pt will need surgical resection. Appreciate surgical recommendations -further recommendations regarding chemotherapy will depend on the stage and characteristics of the tumor. -continue IV iron for iron deficiency anemia. Ferrlecit 5 days total have been ordered. -will order CXR to evaluate for thoracic disease Approximately 40 min were spent at patient's bedside and in coordination of her care Problems: Consultation Date/Type/Reason Admit Date/Time Oct 31, 2016 at 04:19 Initial Consult Date 11/05/16 Type of Consultation: oncology Reason for Consultation colon cancer Referring Provider: JONH FLANAGAN NP 24 HR Interval Summary Free Text/Dictation still no bowel movement Exam/Review of Systems Vital Signs Vitals Vital Signs Date Time Temp Pulse Resp B/P Pulse Ox O2 Delivery O2 Flow Rate FiO2 11/08/16 08:33 97.8 52 18 154/79 93 11/07/16 04:05 Room Air 11/06/16 20:24 2.0 Intake and Output 11/07/16 11/07/16 11/08/16 15:00 23:00 07:00 Intake Total 175 ml 800 ml 1132 ml Output Total 600 ml 1000 ml Balance 175 ml 200 ml 132 ml Exam Constitutional: alert, oriented Psych: no complaints Head: atraumatic, normocephalic Eyes: nl conjunctiva ENMT: nl external ears & nose Neck: non-tender, supple Respiratory: clear to auscultation, normal air movement Cardiovascular: regular rate and rhythm Gastrointestinal: surgical scars Musculoskeletal: nl extremities to inspection, nl gait and stance Results Result Diagram: 11/08/16 0432 11/08/16 0432 Results 24 hrs Laboratory Tests Test 11/07/16 15:45 11/08/16 04:32 11/08/16 04:40 Troponin I < 0.012 Alanine Aminotransferase (ALT/SGPT) 20 Albumin 2.9 L Albumin/Globulin Ratio 0.82 Alkaline Phosphatase 63 Anion Gap 16 Aspartate Amino Transf (AST/SGOT) 23 Basophils # 0.1 Basophils % 1.0 Blood Urea Nitrogen 14 Calcium Level 9.1 Carbon Dioxide Level 24 Chloride Level 105 Creatinine 0.96 Differential Comment MANUAL DIFF Direct Bilirubin 0.00 Eosinophils # Eosinophils % Globulin 3.50 H Glucose Level 77 # Hematocrit 34.4 L Hemoglobin 10.0 L Indirect Bilirubin 0.0 Lymphocytes # 3.7 H Lymphocytes % 30.0 Mean Corpuscular Hemoglobin 22.2 L Mean Corpuscular Hemoglobin Concent 29.1 L Mean Corpuscular Volume 76.3 L Mean Platelet Volume 8.8 Monocytes # 0.4 Monocytes % 3.0 Neutrophils # 8.1 H Neutrophils % 66.0 Nucleated Red Blood Cells # 0.0 Nucleated Red Blood Cells % 0.0 Platelet Count 502 H Potassium Level 3.9 Red Blood Count 4.51 Red Cell Distribution Width 24.5 H Sodium Level 141 Total Bilirubin 0.0 L Total Protein 6.4 White Blood Count 12.2 H Magnesium Level 2.0 Medications Medications Current Medications Ondansetron HCl (Zofran Inj) 4 mg Q6H PRN IV NAUSEA AND/OR VOMITING Last administered on 10/31/16 11:29; Admin Dose 4 MG; Start 10/31/16 at 08:00 Atenolol (Tenormin) 50 mg BID NGT Last administered on 11/08/16 08:36; Admin Dose 50 MG; Start 10/31/16 at 10:30 Diphenoxylate HCl/ Atropine 1 tab 1 tab Q6H PRN PO DIARRHEA; Start 10/31/16 at 10:30 Potassium Chloride/Dextrose/ Sod Cl (D5-1/2ns + KCl 10 Meq) 1,000 ml @ 75 mls/ hr [id number] IV Last administered on 11/08/16 04:30; Admin Dose 75 MLS/HR; Start 11/05/16 at 16:30 Famotidine (Pepcid Iv) 20 mg Q12 IV Last administered on 11/08/16 08:36; Admin Dose 20 MG; Start 11/06/16 at 21:00 Enoxaparin Sodium (Lovenox) 40 mg DAILY@07 SC Last administered on 11/08/16 06 :21; Admin Dose 40 MG; Start 11/07/16 at 07:00 Hydromorphone HCl (Dilaudid) 0.5 mg Q3H PRN IV pain 1-5 Last administered on 21:00; Admin Dose 0.5 MG; Start 11/06/16 at 14:00 Hydromorphone HCl (Dilaudid) 1 mg Q4H PRN IV PAIN LEVEL 6-10 Last administered on 11/07/16 05:35; Admin Dose 1 MG; Start 11/06/16 at 14:00 Acetaminophen/ Hydrocodone Bitart ([place] (5/325)) 2 tab Q4H PRN PO Pain 6-10 Last administered on 11/08/16 10:10; Admin Dose 2 TAB; Start 11/07/16 at 08:30 Acetaminophen/ Hydrocodone Bitart ([place] (5/325)) 1 tab Q4H PRN PO Pain 1-5 Last administered on 11/08/16 04:43; Admin Dose 1 TAB; Start 11/07/16 at 08:30 Hydromorphone HCl (Dilaudid) 0.5 mg Q2 PRN IV Breakthrough PAIN; Start 11/07/16 at 08:30 Morphine Sulfate (morphine) 2 mg Q2H PRN IV Breakthrough PAIN; Start 11/07/16 at 08:30 SKYLER LONGORIA M.D. Nov 08, 2016 10:56
--- NOTE | 2016-11-08 12:40 | CONS ---
Date/Time of Note Date/Time of Note DATE: 11/08/16 TIME: 12:37 Assessment/Plan Assessment/Plan Chief Complaint/Hosp Course IMPRESSION: 1. Preoperative evaluation prior to surgical resection of colonic neoplasm.- negative troponin x 3/Nl EF by echo 10/18. No cardiac contraindication to proceeding to OR on current medical therapy at moderate CV without further non- invasive evaluation 2. History of supraventricular tachyarrhythmia, question arterioventricular node re-entry tachycardia. 3. Hypertension, under reasonable control. 4. Colonic mass consistent with colonic neoplasm, colon carcinoma.-Now s/p resection POD#1 5. Abdominal pain secondary to abdominal mass. 6. Asthma. 7. Urinary tract infection. 8. Anemia. 9.Abnl ecg- after surgery/NO cp/Negative trop Recc: -Continue atenolol and resume benazepril/verapamil as tolerated -Pain control -Follow volume status closely -Routine post-op care -F/U path from resection Problems: Consultation Date/Type/Reason Admit Date/Time Oct 31, 2016 at 04:19 Initial Consult Date 11/05/16 Type of Consultation: Cardiology Reason for Consultation abnl ecg/pre-op Referring Provider: JONH FLANAGAN RESOURCE DIRECTOR Exam/Review of Systems Vital Signs Vitals Vital Signs Date Time Temp Pulse Resp B/P Pulse Ox O2 Delivery O2 Flow Rate FiO2 11/08/16 08:33 97.8 52 18 154/79 93 11/07/16 04:05 Room Air 11/06/16 20:24 2.0 Intake and Output 11/07/16 11/07/16 11/08/16 15:00 23:00 07:00 Intake Total 175 ml 800 ml 1132 ml Output Total 600 ml 1000 ml Balance 175 ml 200 ml 132 ml Exam Review of Systems: CONSTITUTIONAL: No fevers, chills. PULMONARY: No sob CARDIOVASCULAR: No chest pain/palpitations GASTROINTESTINAL: No nausea/vomiting. GENITOURINARY: constipation MUSCULOSKELETAL: No myagias/arthalgias. PSYCHIATRIC: The patient denies depression. NEUROLOGIC: No weakness Constitutional: alert, oriented Psych: no complaints Head: normocephalic ENMT: mucosa pink and moist Neck: jvd (8 cm water), supple Respiratory: diminished breath sounds (at bases/B) Cardiovascular: regular rate and rhythm Gastrointestinal: non-tender, soft Musculoskeletal: muscle tone Extremities: normal pulses Neurological: other (No focal deficits) Results Result Diagram: 11/08/16 0432 11/08/16 0432 Results 24 hrs Laboratory Tests Test 11/07/16 15:45 11/08/16 04:32 11/08/16 04:40 Troponin I < 0.012 Alanine Aminotransferase (ALT/SGPT) 20 Albumin 2.9 L Albumin/Globulin Ratio 0.82 Alkaline Phosphatase 63 Anion Gap 16 Aspartate Amino Transf (AST/SGOT) 23 Basophils # 0.1 Basophils % 1.0 Blood Urea Nitrogen 14 Calcium Level 9.1 Carbon Dioxide Level 24 Chloride Level 105 Creatinine 0.96 Differential Comment MANUAL DIFF Direct Bilirubin 0.00 Eosinophils # Eosinophils % Globulin 3.50 H Glucose Level 77 # Hematocrit 34.4 L Hemoglobin 10.0 L Indirect Bilirubin 0.0 Lymphocytes # 3.7 H Lymphocytes % 30.0 Mean Corpuscular Hemoglobin 22.2 L Mean Corpuscular Hemoglobin Concent 29.1 L Mean Corpuscular Volume 76.3 L Mean Platelet Volume 8.8 Monocytes # 0.4 Monocytes % 3.0 Neutrophils # 8.1 H Neutrophils % 66.0 Nucleated Red Blood Cells # 0.0 Nucleated Red Blood Cells % 0.0 Platelet Count 502 H Potassium Level 3.9 Red Blood Count 4.51 Red Cell Distribution Width 24.5 H Sodium Level 141 Total Bilirubin 0.0 L Total Protein 6.4 White Blood Count 12.2 H Magnesium Level 2.0 Medications Medications Current Medications Ondansetron HCl (Zofran Inj) 4 mg Q6H PRN IV NAUSEA AND/OR VOMITING Last administered on 10/31/16 11:29; Admin Dose 4 MG; Start 10/31/16 at 08:00 Atenolol (Tenormin) 50 mg BID NGT Last administered on 11/08/16 08:36; Admin Dose 50 MG; Start 10/31/16 at 10:30 Diphenoxylate HCl/ Atropine 1 tab 1 tab Q6H PRN PO DIARRHEA; Start 10/31/16 at 10:30 Potassium Chloride/Dextrose/ Sod Cl (D5-1/2ns + KCl 10 Meq) 1,000 ml @ 75 mls/ hr [id number] IV Last administered on 11/08/16 04:30; Admin Dose 75 MLS/HR; Start 11/05/16 at 16:30 Famotidine (Pepcid Iv) 20 mg Q12 IV Last administered on 11/08/16 08:36; Admin Dose 20 MG; Start 11/06/16 at 21:00 Enoxaparin Sodium (Lovenox) 40 mg DAILY@07 SC Last administered on 11/08/16 06 :21; Admin Dose 40 MG; Start 11/07/16 at 07:00 Hydromorphone HCl (Dilaudid) 0.5 mg Q3H PRN IV pain 1-5 Last administered on 21:00; Admin Dose 0.5 MG; Start 11/06/16 at 14:00 Hydromorphone HCl (Dilaudid) 1 mg Q4H PRN IV PAIN LEVEL 6-10 Last administered on 11/07/16 05:35; Admin Dose 1 MG; Start 11/06/16 at 14:00 Acetaminophen/ Hydrocodone Bitart ([place] (5/325)) 2 tab Q4H PRN PO Pain 6-10 Last administered on 11/08/16 10:10; Admin Dose 2 TAB; Start 11/07/16 at 08:30 Acetaminophen/ Hydrocodone Bitart ([place] (5/325)) 1 tab Q4H PRN PO Pain 1-5 Last administered on 11/08/16 04:43; Admin Dose 1 TAB; Start 11/07/16 at 08:30 Hydromorphone HCl (Dilaudid) 0.5 mg Q2 PRN IV Breakthrough PAIN; Start 11/07/16 at 08:30 Morphine Sulfate (morphine) 2 mg Q2H PRN IV Breakthrough PAIN; Start 11/07/16 at 08:30 ANDRA NEAL Nov 08, 2016 12:39
[2016-11-08] MEDS: VERAPAMIL (SR) 180 MG TAB PO SCH (14:00)
--- NOTE | 2016-11-08 14:46 | RADRPT ---
Vent Rate: 50 bpm RR Interval: 0 msec IN Interval: 136 msec QRS Duration: 98 msec QT Interval: 516 msec QTC Interval: 470 msec P-R-T [place]: 25 - 5 - 40 degrees Sinus bradycardia Otherwise normal ECG Electronically Signed By: Tapan Cleary [id number]
[2016-11-08 21:07] VITALS: BP 170/91; RESP 20
[2016-11-09 00:13] VITALS: BP 118/85; RESP 20
[2016-11-09] MEDS: D5W-0.45 NACL + KCL 10 MEQ 1,000 ML IV SCH ×2 (00:47→10:56)
[2016-11-09 05:12] LABS: ADD SCAN DIFF NO
[2016-11-09 05:27] LABS: POTASSIUM 3.9 mmol/L (3.5-5.1)
[2016-11-09 05:30] LABS: CREATININE 0.88 mg/dl (0.44-1.00)
[2016-11-09 05:37] LABS: ABNORMAL IP MESSAGE 1; HEMATOCRIT 35.6 % (37.0-47.0); HEMOGLOBIN 10.4 g/dl (12.0-16.0); MEAN CORPUSCULAR HEMOGLOBIN 22.7 pg (29.0-33.0); MEAN CORPUSCULAR HGB CONC 29.2 g/dl (32.0-37.0); MEAN CORPUSCULAR VOLUME 77.6 fl (82.0-101.0); MEAN PLATELET VOLUME 8.8 fl (7.4-10.4); PLATELET COUNT 426 10^3/UL (140-415); RED BLOOD COUNT 4.59 10^6/ul (4.20-5.40); WHITE BLOOD COUNT 8.6 10^3/ul (4.8-10.8)
[2016-11-09] MEDS: ENOXAPARIN 40 MG/0.4 ML SYG SC SCH (06:29)
[2016-11-09 07:32] LABS: BASOPHIL # 0.1 10^3/ul (0.0-0.1); EOSINOPHILS # 0.6 10^3/ul (0.0-0.5); LYMPHOCYTES # 3.3 10^3/ul (0.8-2.9); MONOCYTE # 0.6 10^3/ul (0.3-0.9)
[2016-11-09 08:14] VITALS: BP 139/87; RESP 18
[2016-11-09] MEDS: VERAPAMIL (SR) 180 MG TAB PO SCH (08:32)
[2016-11-09] MEDS: FAMOTIDINE 20 MG INJ IV SCH ×2 (08:54→20:09)
[2016-11-09] MEDS: ATENOLOL 50 MG TAB NGT SCH ×2 (08:55→20:13)
[2016-11-09] MEDS ORDERED: VERAPAMIL (SR) 240 MG TAB PO SCH (09:00)
--- NOTE | 2016-11-09 09:42 | PN ---
Date/Time of Note Date/Time of Note DATE: 11/09/16 TIME: 09:39 Assessment/Plan VTE Prophylaxis VTE Prophylaxis Intervention: SCD's Lines/Catheters IV Catheter Type (from [facility]): Peripheral IV Urinary Cath still in place: No Assessment/Plan Chief Complaint/Hosp Course 1. 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 Newly diagnosed. Oncology and surgery on board. S/P laparoscopic right colectomy with anastomosis on 11/06/2016. Continue pain control. Encourage frequent ambulation and frequent use of incentive spirometry. 2. Microcytic, hypochromic anemia. Most probably secondary to underlying rectal bleed and also from iron deficiency. Transfuse blood products as needed. Continue iron supplements. 3. Paroxysmal supraventricular tachycardia. Continue the patient on beta blockers and verapamil. Cardiology following. 4. Essential hypertension. Continue antihypertensives. 5. Urinary tract infection. Urine culture positive for lactobacillus species as colony count greater than 100,000 units per mL. Continue antibiotics. 6. Morbid obesity. Weight reduction will be advised. 7. Fluid, electrolytes and nutrition. NPO. Continue IVFs. 8. Deep venous thrombosis prophylaxis. Bilateral sequential compression devices. 9. Gastrointestinal prophylaxis with histamine 2 receptor blockers. PLAN: Continue post-operative care. Case discussed with Dr. Calvo. Problems: Subjective 24 Hr Interval Summary Free Text/Dictation Pain well controlled. Exam/Review of Systems Vital Signs Vitals Vital Signs Date Time Temp Pulse Resp B/P Pulse Ox O2 Delivery O2 Flow Rate FiO2 11/09/16 08:14 97.9 55 18 139/87 95 11/07/16 04:05 Room Air 11/06/16 20:24 2.0 Intake and Output 11/08/16 11/08/16 11/09/16 15:00 23:00 07:00 Intake Total 1375 ml Output Total 1300 ml Balance 75 ml Exam GENERAL: This is an obese female lying in bed in no apparent distress. HEENT: Normocephalic and atraumatic. Eyes: Anicteric sclerae. Conjunctivae clear. ENT: Nasal septum is midline. Oral mucosa is moist. NECK: Supple. No JVD noticed. RESPIRATORY: Bilaterally clear to auscultation. No adventitious breath sounds heard. No use of accessory muscles of respiration. CARDIAC: Regular rate and rhythm. S1 and S2 heard. ABDOMEN: Abdominal binder over the surgical dressings. GENITOURINARY: Deferred. EXTREMITIES: No cyanosis, no clubbing, no edema. Peripheral pulses are palpable. NEUROLOGIC: The patient is awake, alert and oriented. Cranial nerves are grossly intact. Results Result Diagram: 11/09/166 11/09/16 0426 Results 24 hrs Laboratory Tests Test 11/09/16 04:26 Anion Gap 14 Basophils # 0.1 Basophils % 1.0 Blood Urea Nitrogen 11 Calcium Level 9.0 Carbon Dioxide Level 22 Chloride Level 108 Creatinine 0.88 Eosinophils # 0.6 H Eosinophils % 7.0 Glucose Level 87 Hematocrit 35.6 L Hemoglobin 10.4 L Lymphocytes # 3.3 H Lymphocytes % 38.0 Magnesium Level 2.0 Mean Corpuscular Hemoglobin 22.7 L Mean Corpuscular Hemoglobin Concent 29.2 L Mean Corpuscular Volume 77.6 L Mean Platelet Volume 8.8 Monocytes # 0.6 Monocytes % 7.0 Neutrophils # 4.0 Neutrophils % 47.0 Platelet Count 426 H Potassium Level 3.9 Red Blood Count 4.59 Red Cell Distribution Width 25.0 H Sodium Level 140 White Blood Count 8.6 # Medications Medications Current Medications Ondansetron HCl (Zofran Inj) 4 mg Q6H PRN IV NAUSEA AND/OR VOMITING Last administered on 10/31/16 11:29; Admin Dose 4 MG; Start 10/31/16 at 08:00 Atenolol (Tenormin) 50 mg BID NGT Last administered on 11/09/16 08:55; Admin Dose 50 MG; Start 10/31/16 at 10:30 Diphenoxylate HCl/ Atropine 1 tab 1 tab Q6H PRN PO DIARRHEA; Start 10/31/16 at 10:30 Potassium Chloride/Dextrose/ Sod Cl (D5-1/2ns + KCl 10 Meq) 1,000 ml @ 75 mls/ hr [id number] IV Last administered on 11/09/16 00:47; Admin Dose 75 MLS/HR; Start 11/05/16 at 16:30 Famotidine (Pepcid Iv) 20 mg Q12 IV Last administered on 11/09/16 08:54; Admin Dose 20 MG; Start 11/06/16 at 21:00 Enoxaparin Sodium (Lovenox) 40 mg DAILY@07 SC Last administered on 3/11/17at 06 :29; Admin Dose 40 MG; Start 11/07/16 at 07:00 Hydromorphone HCl (Dilaudid) 0.5 mg Q3H PRN IV pain 1-5 Last administered on 21:00; Admin Dose 0.5 MG; Start 11/06/16 at 14:00 Hydromorphone HCl (Dilaudid) 1 mg Q4H PRN IV PAIN LEVEL 6-10 Last administered on 11/07/16 05:35; Admin Dose 1 MG; Start 11/06/16 at 14:00 Acetaminophen/ Hydrocodone Bitart ([place] (5/325)) 2 tab Q4H PRN PO Pain 6-10 Last administered on 11/08/16 22:17; Admin Dose 2 TAB; Start 11/07/16 at 08:30 Acetaminophen/ Hydrocodone Bitart ([place] (5/325)) 1 tab Q4H PRN PO Pain 1-5 Last administered on 11/08/16 04:43; Admin Dose 1 TAB; Start 11/07/16 at 08:30 Hydromorphone HCl (Dilaudid) 0.5 mg Q2 PRN IV Breakthrough PAIN; Start 11/07/16 at 08:30 Morphine Sulfate (morphine) 2 mg Q2H PRN IV Breakthrough PAIN; Start 11/07/16 at 08:30 Verapamil HCl (Isoptin Sr) 180 mg DAILY PO ; Start 11/08/16 at 14:00 JONH FLANAGAN NP Nov 09, 2016 09:42
[2016-11-09] MEDS: HYDROCODONE/APAP (5/325) TAB PO PRN ×2 (13:27→23:03)
[2016-11-09 14:12] LABS: ANISOCYTOSIS 2+; MICROCYTOSIS 1+; POIKILOCYTOSIS 1+
[2016-11-09 14:13] LABS: OVALOCYTES FEW; POLYCHROMASIA 1+
--- NOTE | 2016-11-09 14:46 | CONS ---
Date/Time of Note Date/Time of Note DATE: 11/09/16 TIME: 14:43 Assessment/Plan Assessment/Plan Chief Complaint/Hosp Course IMPRESSION: 1. Preoperative evaluation prior to surgical resection of colonic neoplasm.- negative troponin x 3/Nl EF by echo 10/18. No cardiac contraindication to proceeding to OR on current medical therapy at moderate CV without further non- invasive evaluation 2. History of supraventricular tachyarrhythmia, question arterioventricular node re-entry tachycardia. 3. Hypertension, under reasonable control. 4. Colonic mass consistent with colonic neoplasm, colon carcinoma.-Now s/p resection POD#1 5. Abdominal pain secondary to abdominal mass. 6. Asthma. 7. Urinary tract infection. 8. Anemia. 9.Abnl ecg- after surgery/NO cp/Negative trop Recc: -Continue atenolol and resume benazepril and will decrease dose of verapamil to allow him to better tolerate -Pain control -Follow volume status closely -Routine post-op care -F/U path from resection Problems: Consultation Date/Type/Reason Admit Date/Time Oct 31, 2016 at 04:19 Initial Consult Date 11/05/16 Type of Consultation: Cardiology Reason for Consultation Pre-op/h/o svt Referring Provider: JONH FLANAGAN SUPER[employer] CR[employer] Exam/Review of Systems Vital Signs Vitals Vital Signs Date Time Temp Pulse Resp B/P Pulse Ox O2 Delivery O2 Flow Rate FiO2 11/09/16 08:14 97.9 55 18 139/87 95 11/07/16 04:05 Room Air 11/06/16 20:24 2.0 Intake and Output 11/08/16 11/08/16 11/09/16 15:00 23:00 07:00 Intake Total 1375 ml Output Total 1300 ml Balance 75 ml Exam Review of Systems: CONSTITUTIONAL: No fevers, chills. PULMONARY: No sob CARDIOVASCULAR: No chest pain/palpitations GASTROINTESTINAL: Mild abd pain GENITOURINARY: No hematuria/dysuria. MUSCULOSKELETAL: No myagias/arthalgias. PSYCHIATRIC: The patient denies depression. NEUROLOGIC: No weakness Constitutional: alert Psych: no complaints Head: normocephalic ENMT: mucosa pink and moist Neck: jvd (8 cm water), supple Respiratory: diminished breath sounds (at bases/BB) Cardiovascular: regular rate and rhythm Gastrointestinal: non-tender, soft, tender (mild) Musculoskeletal: muscle tone (normal) Extremities: edema (none) Results Result Diagram: 11/09/16 0426 11/09/16 0426 Results 24 hrs Laboratory Tests Test 11/09/16 04:26 Anion Gap 14 Anisocytosis 2+ Basophils # 0.1 Basophils % 1.0 Blood Urea Nitrogen 11 Calcium Level 9.0 Carbon Dioxide Level 22 Chloride Level 108 Creatinine 0.88 Eosinophils # 0.6 H Eosinophils % 7.0 Glucose Level 87 Hematocrit 35.6 L Hemoglobin 10.4 L Lymphocytes # 3.3 H Lymphocytes % 38.0 Magnesium Level 2.0 Mean Corpuscular Hemoglobin 22.7 L Mean Corpuscular Hemoglobin Concent 29.2 L Mean Corpuscular Volume 77.6 L Mean Platelet Volume 8.8 Microcytosis 1+ Monocytes # 0.6 Monocytes % 7.0 Neutrophils # 4.0 Neutrophils % 47.0 Ovalocytes FEW Platelet Count 426 H Poikilocytosis 1+ Polychromasia 1+ Potassium Level 3.9 Red Blood Count 4.59 Red Cell Distribution Width 25.0 H Sodium Level 140 White Blood Count 8.6 # Medications Medications Current Medications Ondansetron HCl (Zofran Inj) 4 mg Q6H PRN IV NAUSEA AND/OR VOMITING Last administered on 10/31/16 11:29; Admin Dose 4 MG; Start 10/31/16 at 08:00 Atenolol (Tenormin) 50 mg BID NGT Last administered on 11/09/16 08:55; Admin Dose 50 MG; Start 10/31/16 at 10:30 Diphenoxylate HCl/ Atropine 1 tab 1 tab Q6H PRN PO DIARRHEA; Start 10/31/16 at 10:30 Potassium Chloride/Dextrose/ Sod Cl (D5-1/2ns + KCl 10 Meq) 1,000 ml @ 75 mls/ hr [id number] IV Last administered on 11/09/16 10:56; Admin Dose 75 MLS/HR; Start 11/05/16 at 16:30 Famotidine (Pepcid Iv) 20 mg Q12 IV Last administered on 11/09/16 08:54; Admin Dose 20 MG; Start 11/06/16 at 21:00 Enoxaparin Sodium (Lovenox) 40 mg DAILY@07 SC Last administered on 11/09/16 06 :29; Admin Dose 40 MG; Start 11/07/16 at 07:00 Hydromorphone HCl (Dilaudid) 0.5 mg Q3H PRN IV pain 1-5 Last administered on 21:00; Admin Dose 0.5 MG; Start 11/06/16 at 14:00 Hydromorphone HCl (Dilaudid) 1 mg Q4H PRN IV PAIN LEVEL 6-10 Last administered on 11/07/16 05:35; Admin Dose 1 MG; Start 11/06/16 at 14:00 Acetaminophen/ Hydrocodone Bitart ([place] (5/325)) 2 tab Q4H PRN PO Pain 6-10 Last administered on 11/09/16 13:27; Admin Dose 2 TAB; Start 11/07/16 at 08:30 Acetaminophen/ Hydrocodone Bitart ([place] (5/325)) 1 tab Q4H PRN PO Pain 1-5 Last administered on 11/08/16 04:43; Admin Dose 1 TAB; Start 11/07/16 at 08:30 Hydromorphone HCl (Dilaudid) 0.5 mg Q2 PRN IV Breakthrough PAIN; Start 11/07/16 at 08:30 Morphine Sulfate (morphine) 2 mg Q2H PRN IV Breakthrough PAIN; Start 11/07/16 at 08:30 Verapamil HCl (Isoptin Sr) 180 mg DAILY PO ; Start 11/08/16 at 14:00 ANDRA NEAL Nov 09, 2016 14:46
--- NOTE | 2016-11-09 16:11 | PN ---
Date/Time of Note Date/Time of Note DATE: 11/09/16 TIME: 16:08 Assessment/Plan Lines/Catheters IV Catheter Type (from [facility]): Peripheral IV [place] in Place (from [facility]): No Assessment/Plan Chief Complaint/Hosp Course 1. 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 s/p Lap right colectomy 11/06. -await path -oob/ambulate -advance diet as tolerated 2. Epigastric incisional hernia, reducible -repair after weight loss at later time 3. History of rectal bleed, possibly secondary to hemorrhoids & colon cancer -monitor h/h 4. Anemia secondary to above s/p 2 u pRBCs. 5. Morbid obesity. The patient is highly encouraged to continue her nutritional optimization and exercise. 6. Hypertension. Continue diet and medication control and encourage weight loss. 7. Congestive heart failure history. Continue judicious fluid management and cardiac optimization. 8. Asthma history. Continue medical optimization. Encourage weight loss. 9. Possible urinary tract infection. Continue antibiotics. 10. Thrombocytosis secondary to CT findings probably. -monitor 11. Diverticulosis. Continue encourage nutritional and lifestyle optimization. 12. Hemorrhoids, uninflamed currently. Thank you, Problems: Subjective 24 Hr Interval Summary s/p Lap right colectomy 11/06. Min pain improving. Flatus and bm. No fever or chills. No cp or sob. No cough. No sparrow. No dizziness, visual or neuro changes. No dysuria. Exam/Review of Systems Vital Signs Vitals Vital Signs Date Time Temp Pulse Resp B/P Pulse Ox O2 Delivery O2 Flow Rate FiO2 11/09/16 08:14 97.9 55 18 139/87 95 11/07/16 04:05 Room Air 11/06/16 20:24 2.0 Intake and Output 11/08/16 11/08/16 11/09/16 15:00 23:00 07:00 Intake Total 1375 ml Output Total 1300 ml Balance 75 ml Exam Free Text/Dictation GENERAL: No acute distress. Morbidly obese. PSYCHIATRIC: Flat affect. HEENT: Pupils equal, reactive. No scleral icterus. Mucous membranes are somewhat moist. NECK: Supple. No JVD. PULMONARY: Normal respiratory effort. No wheezing. CARDIAC: S1, S2 present. ABDOMEN: Soft, obese, minimally tender. No rebound, no guarding, not rigid. Epigastric reducible hernia. Ecchymosis. EXTREMITIES: No edema. VASCULAR: Cap refill less than 2 seconds. NEUROLOGIC: Alert, oriented, moves all 4 extremities grossly. LYMPHATICS: No inguinal, cervical, periauricular, or clavicular palpable lymph nodes. RECTAL: No masses, lesions, or induration. Small hemorrhoids. No blood. Results Result Diagram: 11/09/16 0426 11/09/16 0426 SACHIN MALAVE MD Nov 09, 2016 16:11
--- NOTE | 2016-11-09 17:35 | RADRPT ---
Vent Rate: 54 bpm RR Interval: 0 msec MO Interval: 0 msec QRS Duration: 156 msec QT Interval: 510 msec QTC Interval: 483 msec P-R-T [place]: 0 - 74 - -79 degrees Probable ectopic atrial bradycardia Nonspecific intraventricular block Abnormal ECG Electronically Signed By: Tapan Cleary [id number]
[2016-11-09] MEDS: BENAZEPRIL 10 MG TAB PO SCH (20:10)
[2016-11-09 20:11] VITALS: BP 159/69; RESP 20
[2016-11-10] MEDS: D5W-0.45 NACL + KCL 10 MEQ 1,000 ML IV SCH ×4 (00:22→22:27)
[2016-11-10 06:05] LABS: ADD SCAN DIFF NO
[2016-11-10 06:06] LABS: ABNORMAL IP MESSAGE 1; BASOPHILS % 0.3 % (0.0-2.0); EOSINOPHILS # 0.4 10^3/ul (0.0-0.5); EOSINOPHILS % 5.3 % (0.0-7.0); HEMATOCRIT 35.1 % (37.0-47.0); HEMOGLOBIN 10.5 g/dl (12.0-16.0); LYMPHOCYTES # 3.3 10^3/ul (0.8-2.9); LYMPHOCYTES % 44.2 % (15.0-51.0); MEAN CORPUSCULAR HEMOGLOBIN 22.9 pg (29.0-33.0); MEAN CORPUSCULAR HGB CONC 29.9 g/dl (32.0-37.0); MEAN CORPUSCULAR VOLUME 76.5 fl (82.0-101.0); MEAN PLATELET VOLUME 8.9 fl (7.4-10.4); MONOCYTE # 0.4 10^3/ul (0.3-0.9); MONOCYTES % 5.4 % (0.0-11.0); NEUTROPHIL # 3.4 10^3/ul (1.6-7.5); NEUTROPHILS % 44.5 % (39.0-77.0); PLATELET COUNT 441 10^3/UL (140-415); RED BLOOD COUNT 4.59 10^6/ul (4.20-5.40); RED CELL DISTRIBUTION WIDTH 25.3 % (11.5-14.5); WHITE BLOOD COUNT 7.5 10^3/ul (4.8-10.8)
[2016-11-10] MEDS: ENOXAPARIN 40 MG/0.4 ML SYG SC SCH (06:19)
[2016-11-10 06:44] LABS: CREATININE 0.91 mg/dl (0.44-1.00)
[2016-11-10 06:45] LABS: CALCIUM 9.2 mg/dl (8.4-10.2)
[2016-11-10 06:48] LABS: PHOSPHORUS 4.5 mg/dl (2.5-4.9)
[2016-11-10 06:49] LABS: MAGNESIUM 1.9 mg/dl (1.7-2.5)
[2016-11-10 08:01] VITALS: BP 157/72; RESP 17
[2016-11-10] MEDS: FAMOTIDINE 20 MG INJ IV SCH ×2 (08:36→22:27)
[2016-11-10] MEDS: VERAPAMIL (SR) 120 MG TAB PO SCH (08:36)
[2016-11-10] MEDS: BENAZEPRIL 10 MG TAB PO SCH (08:37)
[2016-11-10] MEDS: ATENOLOL 50 MG TAB NGT SCH (09:00)
--- NOTE | 2016-11-10 09:36 | PN ---
Date/Time of Note Date/Time of Note DATE: 11/10/16 TIME: 09:35 Assessment/Plan VTE Prophylaxis VTE Prophylaxis Intervention: SCD's Lines/Catheters IV [facility] Type (from [facility]): Peripheral IV Urinary Cath still in place: No Assessment/Plan Chief Complaint/Hosp Course 1. 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 Newly diagnosed. Oncology and surgery on board. S/P laparoscopic right colectomy with anastomosis on 11/06/2016. Continue pain control. Encourage frequent ambulation and frequent use of incentive spirometry. 2. Microcytic, hypochromic anemia. Most probably secondary to underlying rectal bleed and also from iron deficiency. Transfuse blood products as needed. Continue iron supplements. 3. Paroxysmal supraventricular tachycardia. Continue the patient on beta blockers and verapamil. Cardiology following. 4. Essential hypertension. Continue antihypertensives. 5. Urinary tract infection. Urine culture positive for lactobacillus species as colony count greater than 100,000 units per mL. Status post antibiotics. 6. Morbid obesity. Weight reduction will be advised. 7. Fluid, electrolytes and nutrition. Full liquid diet. 8. Deep venous thrombosis prophylaxis. Bilateral sequential compression devices. 9. Gastrointestinal prophylaxis with histamine 2 receptor blockers. PLAN: Continue post-operative care. Advancement of diet as per surgery. Case discussed with Dr. Calvo. Problems: Subjective 24 Hr Interval Summary Free Text/Dictation Abdominal pain well controlled. Tolerating full liquids. Having bowel movements. Exam/Review of Systems Vital Signs Vitals Vital Signs Date Time Temp Pulse Resp B/P Pulse Ox O2 Delivery O2 Flow Rate FiO2 11/10/16 08:01 97.1 52 17 157/72 96 11/07/16 04:05 Room Air 11/06/16 20:24 2.0 Intake and Output 11/09/16 11/09/16 11/10/16 15:00 23:00 07:00 Intake Total 1390 ml 1267 ml Output Total 650 ml 1000 ml Balance 740 ml 267 ml Exam GENERAL: This is an obese female lying in bed in no apparent distress. HEENT: Normocephalic and atraumatic. Eyes: Anicteric sclerae. Conjunctivae clear. ENT: Nasal septum is midline. Oral mucosa is moist. NECK: Supple. No JVD noticed. RESPIRATORY: Bilaterally clear to auscultation. No adventitious breath sounds heard. No use of accessory muscles of respiration. CARDIAC: Regular rate and rhythm. S1 and S2 heard. ABDOMEN: Abdominal binder over the surgical dressings. GENITOURINARY: Deferred. EXTREMITIES: No cyanosis, no clubbing, no edema. Peripheral pulses are palpable. NEUROLOGIC: The patient is awake, alert and oriented. Cranial nerves are grossly intact. Results Result Diagram: 11/10/165 11/10/165 Results 24 hrs Laboratory Tests Test 11/10/16 04:45 Anion Gap 16 Basophils # 0.0 Basophils % 0.3 Blood Urea Nitrogen 10 Calcium Level 9.2 Carbon Dioxide Level 22 Chloride Level 108 Creatinine 0.91 Eosinophils # 0.4 Eosinophils % 5.3 Glucose Level 87 Hematocrit 35.1 L Hemoglobin 10.5 L Lymphocytes # 3.3 H Lymphocytes % 44.2 Magnesium Level 1.9 Mean Corpuscular Hemoglobin 22.9 L Mean Corpuscular Hemoglobin Concent 29.9 L Mean Corpuscular Volume 76.5 L Mean Platelet Volume 8.9 Monocytes # 0.4 Monocytes % 5.4 Neutrophils # 3.4 Neutrophils % 44.5 Nucleated Red Blood Cells # 0.0 Nucleated Red Blood Cells % 0.0 Phosphorus Level 4.5 Platelet Count 441 H Potassium Level 4.0 Red Blood Count 4.59 Red Cell Distribution Width 25.3 H Sodium Level 142 White Blood Count 7.5 Medications Medications Current Medications Ondansetron HCl (Zofran Inj) 4 mg Q6H PRN IV NAUSEA AND/OR VOMITING Last administered on 10/31/16 11:29; Admin Dose 4 MG; Start 10/31/16 at 08:00 Atenolol (Tenormin) 50 mg BID NGT Last administered on 11/09/16 08:55; Admin Dose 50 MG; Start 10/31/16 at 10:30 Diphenoxylate HCl/ Atropine 1 tab 1 tab Q6H PRN PO DIARRHEA; Start 10/31/16 at 10:30 Potassium Chloride/Dextrose/ Sod Cl (D5-1/2ns + KCl 10 Meq) 1,000 ml @ 75 mls/ hr [id number] IV Last administered on 11/10/16 00:22; Admin Dose 75 MLS/HR; Start 11/05/16 at 16:30 Famotidine (Pepcid Iv) 20 mg Q12 IV Last administered on 11/10/16 08:36; Admin Dose 20 MG; Start 11/06/16 at 21:00 Enoxaparin Sodium (Lovenox) 40 mg DAILY@07 SC Last administered on 11/10/16 06 :19; Admin Dose 40 MG; Start 11/07/16 at 07:00 Hydromorphone HCl (Dilaudid) 0.5 mg Q3H PRN IV pain 1-5 Last administered on 21:00; Admin Dose 0.5 MG; Start 11/06/16 at 14:00 Hydromorphone HCl (Dilaudid) 1 mg Q4H PRN IV PAIN LEVEL 6-10 Last administered on 11/07/16 05:35; Admin Dose 1 MG; Start 11/06/16 at 14:00 Acetaminophen/ Hydrocodone Bitart ([place] (5/325)) 2 tab Q4H PRN PO Pain 6-10 Last administered on 11/09/16 23:03; Admin Dose 2 TAB; Start 11/07/16 at 08:30 Acetaminophen/ Hydrocodone Bitart ([place] (5/325)) 1 tab Q4H PRN PO Pain 1-5 Last administered on 11/08/16 04:43; Admin Dose 1 TAB; Start 11/07/16 at 08:30 Hydromorphone HCl (Dilaudid) 0.5 mg Q2 PRN IV Breakthrough PAIN; Start 11/07/16 at 08:30 Morphine Sulfate (morphine) 2 mg Q2H PRN IV Breakthrough PAIN; Start 11/07/16 at 08:30 Verapamil HCl (Isoptin Sr) 120 mg DAILY PO Last administered on 11/10/16 08:36 ; Admin Dose 120 MG; Start 11/10/16 at 09:00 Benazepril HCl (Lotensin) 10 mg BID PO Last administered on 11/10/16 08:37; Admin Dose 10 MG; Start 11/09/16 at 21:00 JONH FLANAGAN NP Nov 10, 2016 09:36
[2016-11-10] MEDS: ATENOLOL 25 MG TAB NGT SCH ×2 (12:30→20:14)
--- NOTE | 2016-11-10 14:49 | CONS ---
Date/Time of Note Date/Time of Note DATE: 11/10/16 TIME: 14:47 Assessment/Plan Assessment/Plan Chief Complaint/Hosp Course IMPRESSION: 1. Preoperative evaluation prior to surgical resection of colonic neoplasm.- negative troponin x 3/Nl EF by echo 10/18. No cardiac contraindication to proceeding to OR on current medical therapy at moderate CV without further non- invasive evaluation 2. History of supraventricular tachyarrhythmia, question arterioventricular node re-entry tachycardia. 3. Hypertension-elevated today 4. Colonic mass consistent with colonic neoplasm, colon carcinoma.-Now s/p resection POD#1 5. Abdominal pain secondary to abdominal mass. 6. Asthma. 7. Urinary tract infection. 8. Anemia. 9.Abnl ecg- after surgery/NO cp/Negative trop 10.BRadycardia Recc: -Continue atenolol but decrease dose to allow patent to better tolerate -Increase benazepril farhana improve BP ADAT -Pain control -Follow volume status closely -Routine post-op care -F/U path from resection Problems: Consultation Date/Type/Reason Admit Date/Time Oct 31, 2016 at 04:19 Initial Consult Date 11/05/16 Type of Consultation: Cardiology Reason for Consultation HTN Referring Provider: JONH FLANAGAN MATERIAL SPREADER Exam/Review of Systems Vital Signs Vitals Vital Signs Date Time Temp Pulse Resp B/P Pulse Ox O2 Delivery O2 Flow Rate FiO2 11/10/16 08:01 97.1 52 17 157/72 96 11/07/16 04:05 Room Air 11/06/16 20:24 2.0 Intake and Output 11/09/16 11/09/16 11/10/16 15:00 23:00 07:00 Intake Total 1390 ml 1267 ml Output Total 650 ml 1000 ml Balance 740 ml 267 ml Exam Review of Systems: CONSTITUTIONAL: No fevers, chills. PULMONARY: No sob CARDIOVASCULAR: No chest pain/palpitations GASTROINTESTINAL: No nausea/vomiting. GENITOURINARY: No hematuria/dysuria. MUSCULOSKELETAL: No myagias/arthalgias. PSYCHIATRIC: The patient denies depression. NEUROLOGIC: No weakness Constitutional: alert, oriented Psych: no complaints Head: normocephalic ENMT: mucosa pink and moist Neck: jvd (8 cm water), supple Respiratory: diminished breath sounds (at bases/B) Cardiovascular: regular rate and rhythm Gastrointestinal: non-tender, soft Musculoskeletal: muscle tone (nbormal) Extremities: edema (none) Neurological: other (No focal deficits) Results Result Diagram: 11/10/165 11/10/16444 Results 24 hrs Laboratory Tests Test 11/10/16 04:45 Anion Gap 16 Basophils # 0.0 Basophils % 0.3 Blood Urea Nitrogen 10 Calcium Level 9.2 Carbon Dioxide Level 22 Chloride Level 108 Creatinine 0.91 Eosinophils # 0.4 Eosinophils % 5.3 Glucose Level 87 Hematocrit 35.1 L Hemoglobin 10.5 L Lymphocytes # 3.3 H Lymphocytes % 44.2 Magnesium Level 1.9 Mean Corpuscular Hemoglobin 22.9 L Mean Corpuscular Hemoglobin Concent 29.9 L Mean Corpuscular Volume 76.5 L Mean Platelet Volume 8.9 Monocytes # 0.4 Monocytes % 5.4 Neutrophils # 3.4 Neutrophils % 44.5 Nucleated Red Blood Cells # 0.0 Nucleated Red Blood Cells % 0.0 Phosphorus Level 4.5 Platelet Count 441 H Potassium Level 4.0 Red Blood Count 4.59 Red Cell Distribution Width 25.3 H Sodium Level 142 White Blood Count 7.5 Medications Medications Current Medications Ondansetron HCl (Zofran Inj) 4 mg Q6H PRN IV NAUSEA AND/OR VOMITING Last administered on 10/31/16 11:29; Admin Dose 4 MG; Start 10/31/16 at 08:00 Diphenoxylate HCl/ Atropine 1 tab 1 tab Q6H PRN PO DIARRHEA; Start 10/31/16 at 10:30 Potassium Chloride/Dextrose/ Sod Cl (D5-1/2ns + KCl 10 Meq) 1,000 ml @ 75 mls/ hr [id number] IV Last administered on 11/10/16 00:22; Admin Dose 75 MLS/HR; Start 11/05/16 at 16:30 Famotidine (Pepcid Iv) 20 mg Q12 IV Last administered on 11/10/16 08:36; Admin Dose 20 MG; Start 11/06/16 at 21:00 Enoxaparin Sodium (Lovenox) 40 mg DAILY@07 SC Last administered on 11/10/16 06 :19; Admin Dose 40 MG; Start 11/07/16 at 07:00 Hydromorphone HCl (Dilaudid) 0.5 mg Q3H PRN IV pain 1-5 Last administered on 21:00; Admin Dose 0.5 MG; Start 11/06/16 at 14:00 Hydromorphone HCl (Dilaudid) 1 mg Q4H PRN IV PAIN LEVEL 6-10 Last administered on 11/07/16 05:35; Admin Dose 1 MG; Start 11/06/16 at 14:00 Acetaminophen/ Hydrocodone Bitart ([place] (5/325)) 2 tab Q4H PRN PO Pain 6-10 Last administered on 11/09/16 23:03; Admin Dose 2 TAB; Start 11/07/16 at 08:30 Acetaminophen/ Hydrocodone Bitart ([place] (5/325)) 1 tab Q4H PRN PO Pain 1-5 Last administered on 11/08/16 04:43; Admin Dose 1 TAB; Start 11/07/16 at 08:30 Hydromorphone HCl (Dilaudid) 0.5 mg Q2 PRN IV Breakthrough PAIN; Start 11/07/16 at 08:30 Morphine Sulfate (morphine) 2 mg Q2H PRN IV Breakthrough PAIN; Start 11/07/16 at 08:30 Verapamil HCl (Isoptin Sr) 120 mg DAILY PO Last administered on 11/10/16 08:36 ; Admin Dose 120 MG; Start 11/10/16 at 09:00 Benazepril HCl (Lotensin) 10 mg BID PO Last administered on 11/10/16 08:37; Admin Dose 10 MG; Start 11/09/16 at 21:00 Atenolol (Tenormin) 25 mg BID NGT ; Start 11/10/16 at 12:30 ANDRA NEAL Nov 10, 2016 14:49
[2016-11-10] MEDS ORDERED: BENAZEPRIL 10 MG TAB PO ONE (15:00)
--- NOTE | 2016-11-10 17:59 | PN ---
Date/Time of Note Date/Time of Note DATE: 11/10/16 TIME: 17:55 Assessment/Plan Lines/Catheters IV Catheter Type (from [facility]): Peripheral IV Kowalski in Place (from [facility]): No Assessment/Plan Chief Complaint/Hosp Course 1. 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 s/p Lap right colectomy 11/06. -await path -oob/ambulate -advance diet as tolerated -dc planning ok from surgical standpoint 2. Epigastric incisional hernia, reducible -repair after weight loss at later time 3. History of rectal bleed, possibly secondary to hemorrhoids & colon cancer -monitor h/h 4. Anemia secondary to above s/p 2 u pRBCs. 5. Morbid obesity. The patient is highly encouraged to continue her nutritional optimization and exercise. 6. Hypertension. Continue diet and medication control and encourage weight loss. 7. Congestive heart failure history. Continue judicious fluid management and cardiac optimization. 8. Asthma history. Continue medical optimization. Encourage weight loss. 9. Possible urinary tract infection. Continue antibiotics. 10. Thrombocytosis secondary to CT findings probably. -monitor 11. Diverticulosis. Continue encourage nutritional and lifestyle optimization. 12. Hemorrhoids, uninflamed currently. Thank you, Problems: Subjective 24 Hr Interval Summary Pain improved. Flatus and bms. No fever or chills. No cp or sob. No cough. No sparrow. No dizziness, visual or neuro changes. No dysuria. No nausea/vomiting with liquid diet. Exam/Review of Systems Vital Signs Vitals Vital Signs Date Time Temp Pulse Resp B/P Pulse Ox O2 Delivery O2 Flow Rate FiO2 11/10/16 08:01 97.1 52 17 157/72 96 11/07/16 04:05 Room Air 11/06/16 20:24 2.0 Intake and Output 11/09/16 11/09/16 11/10/16 15:00 23:00 07:00 Intake Total 1390 ml 1267 ml Output Total 650 ml 1000 ml Balance 740 ml 267 ml Exam Free Text/Dictation GENERAL: No acute distress. Morbidly obese. PSYCHIATRIC: Flat affect. HEENT: Pupils equal, reactive. No scleral icterus. Mucous membranes are somewhat moist. NECK: Supple. No JVD. PULMONARY: Normal respiratory effort. No wheezing. CARDIAC: S1, S2 present. ABDOMEN: Soft, obese, minimally tender. No rebound, no guarding, not rigid. Epigastric reducible hernia. Ecchymosis. EXTREMITIES: No edema. VASCULAR: Cap refill less than 2 seconds. NEUROLOGIC: Alert, oriented, moves all 4 extremities grossly. LYMPHATICS: No inguinal, cervical, periauricular, or clavicular palpable lymph nodes. RECTAL: No masses, lesions, or induration. Small hemorrhoids. No blood. Results Result Diagram: 11/10/16 0445 11/10/16 0445 SACHIN MALAVE MD Nov 10, 2016 17:58
[2016-11-10 19:59] VITALS: BP 168/72; RESP 16
[2016-11-10] MEDS: BENAZEPRIL 20 MG TAB PO SCH (20:14)
[2016-11-10 23:39] VITALS: BP 167/75; RESP 16
[2016-11-11 05:05] VITALS: BP 159/74; RESP 18
[2016-11-11 05:30] LABS: ADD SCAN DIFF NO
[2016-11-11 05:33] LABS: ABNORMAL IP MESSAGE 1; BASOPHILS % 0.3 % (0.0-2.0); EOSINOPHILS # 0.4 10^3/ul (0.0-0.5); EOSINOPHILS % 5.4 % (0.0-7.0); HEMOGLOBIN 9.9 g/dl (12.0-16.0); LYMPHOCYTES # 2.8 10^3/ul (0.8-2.9); LYMPHOCYTES % 38.2 % (15.0-51.0); MEAN CORPUSCULAR HEMOGLOBIN 22.8 pg (29.0-33.0); MEAN CORPUSCULAR VOLUME 75.9 fl (82.0-101.0); MONOCYTE # 0.5 10^3/ul (0.3-0.9); NEUTROPHIL # 3.6 10^3/ul (1.6-7.5); NEUTROPHILS % 48.8 % (39.0-77.0); PLATELET COUNT 421 10^3/UL (140-415); RED BLOOD COUNT 4.35 10^6/ul (4.20-5.40); RED CELL DISTRIBUTION WIDTH 25.6 % (11.5-14.5); WHITE BLOOD COUNT 7.3 10^3/ul (4.8-10.8)
[2016-11-11 05:51] LABS: POTASSIUM 3.8 mmol/L (3.5-5.1)
[2016-11-11 05:54] LABS: CREATININE 0.86 mg/dl (0.44-1.00)
[2016-11-11 05:55] LABS: CALCIUM 9.2 mg/dl (8.4-10.2)
[2016-11-11 05:56] LABS: MAGNESIUM 1.8 mg/dl (1.7-2.5); PHOSPHORUS 4.7 mg/dl (2.5-4.9)
[2016-11-11 07:53] VITALS: BP 173/79; RESP 16
[2016-11-11] MEDS: FAMOTIDINE 20 MG INJ IV SCH (09:08)
[2016-11-11] MEDS: BENAZEPRIL 20 MG TAB PO SCH (09:08)
[2016-11-11] MEDS: VERAPAMIL (SR) 120 MG TAB PO SCH (09:08)
[2016-11-11] MEDS: ATENOLOL 25 MG TAB NGT SCH (09:09)
[2016-11-11] MEDS: ENOXAPARIN 40 MG/0.4 ML SYG SC SCH (09:14)
[2016-11-11] MEDS ORDERED: AMLODIPINE 5 MG TAB PO SCH (10:30)
[2016-11-11] MEDS ORDERED: hydrALAzine 20 MG INJ IV PRN (10:30)
--- NOTE | 2016-11-11 12:07 | PN ---
Date/Time of Note Date/Time of Note DATE: 11/11/16 TIME: 12:04 Assessment/Plan Lines/Catheters IV Catheter Type (from [facility]): Peripheral IV Kowalski in Place (from [facility]): No Assessment/Plan Chief Complaint/Hosp Course 1. Ascending colon adenocarcinoma with +2/16 lymph nodes ([id number]) s/p Lap right colectomy 11/06. -oncology f/u -will place portacath as outpt. -oob/ambulate -advance diet as tolerated -dc planning ok from surgical standpoint 2. Epigastric incisional hernia, reducible -repair after weight loss at later time 3. History of rectal bleed, possibly secondary to hemorrhoids & colon cancer -monitor h/h 4. Anemia secondary to above s/p 2 u pRBCs. 5. Morbid obesity. The patient is highly encouraged to continue her nutritional optimization and exercise. 6. Hypertension. Continue diet and medication control and encourage weight loss. 7. Congestive heart failure history. Continue judicious fluid management and cardiac optimization. 8. Asthma history. Continue medical optimization. Encourage weight loss. 9. Possible urinary tract infection s/p antibiotics. 10. Thrombocytosis secondary to CT findings probably. Improving. -monitor 11. Diverticulosis. Continue encourage nutritional and lifestyle optimization. 12. Hemorrhoids, uninflamed currently. Thank you, Problems: Subjective 24 Hr Interval Summary Pain improved. Flatus and bms. No fever or chills. No cp or sob. No cough. No sparrow. No dizziness, visual or neuro changes. No dysuria. Min nausea. No vomiting. Exam/Review of Systems Vital Signs Vitals Vital Signs Date Time Temp Pulse Resp B/P Pulse Ox O2 Delivery O2 Flow Rate FiO2 11/11/16 07:53 98.3 56 16 173/79 95 Intake and Output 11/10/16 11/10/16 11/11/16 15:00 23:00 07:00 Intake Total 900 ml 500 ml Balance 900 ml 500 ml Exam Free Text/Dictation GENERAL: No acute distress. Morbidly obese. PSYCHIATRIC: Flat affect. HEENT: Pupils equal, reactive. No scleral icterus. Mucous membranes are somewhat moist. NECK: Supple. No JVD. PULMONARY: Normal respiratory effort. No wheezing. CARDIAC: S1, S2 present. ABDOMEN: Soft, obese, minimally tender. No rebound, no guarding, not rigid. Epigastric reducible hernia. Ecchymosis. EXTREMITIES: No edema. VASCULAR: Cap refill less than 2 seconds. NEUROLOGIC: Alert, oriented, moves all 4 extremities grossly. LYMPHATICS: No inguinal, cervical, periauricular, or clavicular palpable lymph nodes. RECTAL: No masses, lesions, or induration. Small hemorrhoids. No blood. Results Free Text/Dictation Pathology: Colon and terminal ileum, right hemicolectomy: -- Adenocarcinoma with mucinous features, moderately-differentiated. -- Tumor located in the cecum. -- Tumor invades through the muscularis propria to involve subserosal adipose tissue. -- All resection margins are free of carcinoma. -- Metastatic adenocarcinoma in two of sixteen lymph nodes (2/16). Continued Next Page . . . SURGICAL PATHOLOGY CANCER CASE SUMMARY: SPECIMEN: Terminal ileum, cecum and ascending colon. PROCEDURE: Right hemicolectomy. TUMOR SITE: Cecum. TUMOR SIZE: 12.5 cm. MACROSCOPIC TUMOR PERFORATION: Not identified. HISTOLOGIC TYPE: Adenocarcinoma with mucinous features. HISTOLOGIC GRADE: Low grade. HISTOLOGIC FEATURES SUGGESTIVE OF MICROSATELLITE INSTABILITY: Intratumoral lymphocytic response: None. Peritumoral lymphocytic response: None. Tumor subtype and differentiation: Mucinous tumor component (45%). MICROSCOPIC TUMOR EXTENSION: Tumor invades through the muscularis propria into the subserosal adipose tissue. MARGINS: Involved. Proximal margin: 5.5 cm clear. Distal margin: 16.5 cm clear. LYMPH-VASCULAR INVASION: Not identified. PERINEURAL INVASION: Not identified. TUMOR DEPOSITS: Not identified. Continued Next Page . . . PATHOLOGIC STAGING (pTNM): pT3 pN1b. Number of lymph nodes examined: 16. Number of lymph nodes involved: 2. Result Diagram: 11/11/16 0436 11/11/16 0436 SACHIN MALAVE MD Nov 11, 2016 12:07
--- NOTE | 2016-11-11 12:42 | CONS ---
Date/Time of Note Date/Time of Note DATE: 11/11/16 TIME: 12:34 Assessment/Plan Assessment/Plan Chief Complaint/Hosp Course 61 yo with obstructing ascending colon mass near the cecum that is now confirmed as poorly differentiated adenocarcinoma. Pt is now s/p surgical resection which reveals moderly differentiated adenocarcinoma 12.5 m with 2/16 LN positive for disease, consistent with stage IIA disease (T3N1) -given stage III disease, pt will benefit from adjuvant chemotherapy for 6 months. Will start Folfox in office 6-8 weeks post op. -pt is s/p 5 days of IV iron -case management to arrange out patient follow up Approximately 40 min were spent at patient's bedside and in coordination of her care Problems: Consultation Date/Type/Reason Admit Date/Time Oct 31, 2016 at 04:19 Initial Consult Date 11/05/16 Type of Consultation: Oncology Reason for Consultation colon ca Referring Provider: JONH FLANAGAN CAMPAIGN MARKETING SPECIALIST 24 HR Interval Summary Free Text/Dictation pt confirmed to have T3N1 disease with a 12.6 cm tumor and 2 + LN. pt still Exam/Review of Systems Vital Signs Vitals Vital Signs Date Time Temp Pulse Resp B/P Pulse Ox O2 Delivery O2 Flow Rate FiO2 11/11/16 07:53 98.3 56 16 173/79 95 Intake and Output 11/10/16 11/10/16 11/11/16 15:00 23:00 07:00 Intake Total 900 ml 500 ml Balance 900 ml 500 ml Exam Constitutional: alert, oriented Psych: no complaints Head: atraumatic, normocephalic Eyes: nl conjunctiva ENMT: nl external ears & nose Neck: non-tender, supple Respiratory: clear to auscultation Cardiovascular: regular rate and rhythm Gastrointestinal: surgical scars Musculoskeletal: nl extremities to inspection, nl gait and stance Results Result Diagram: 11/11/16 0436 11/11/16 0436 Results 24 hrs Laboratory Tests Test 11/11/16 04:36 Anion Gap 14 Basophils # 0.0 Basophils % 0.3 Blood Urea Nitrogen 9 Calcium Level 9.2 Carbon Dioxide Level 23 Chloride Level 109 Creatinine 0.86 Eosinophils # 0.4 Eosinophils % 5.4 Glucose Level 100 Hematocrit 33.0 L Hemoglobin 9.9 L Lymphocytes # 2.8 Lymphocytes % 38.2 Magnesium Level 1.8 Mean Corpuscular Hemoglobin 22.8 L Mean Corpuscular Hemoglobin Concent 30.0 L Mean Corpuscular Volume 75.9 L Mean Platelet Volume 9.0 Monocytes # 0.5 Monocytes % 7.0 Neutrophils # 3.6 Neutrophils % 48.8 Nucleated Red Blood Cells # 0.0 Nucleated Red Blood Cells % 0.0 Phosphorus Level 4.7 Platelet Count 421 H Potassium Level 3.8 Red Blood Count 4.35 Red Cell Distribution Width 25.6 H Sodium Level 142 White Blood Count 7.3 Medications Medications Current Medications Ondansetron HCl (Zofran Inj) 4 mg Q6H PRN IV NAUSEA AND/OR VOMITING Last administered on 10/31/16 11:29; Admin Dose 4 MG; Start 10/31/16 at 08:00 Diphenoxylate HCl/ Atropine 1 tab 1 tab Q6H PRN PO DIARRHEA; Start 10/31/16 at 10:30 Potassium Chloride/Dextrose/ Sod Cl (D5-1/2ns + KCl 10 Meq) 1,000 ml @ 75 mls/ hr [id number] IV Last administered on 11/10/16 22:27; Admin Dose 75 MLS/HR; Start 11/05/16 at 16:30 Famotidine (Pepcid Iv) 20 mg Q12 IV Last administered on 11/11/16 09:08; Admin Dose 20 MG; Start 11/06/16 at 21:00 Enoxaparin Sodium (Lovenox) 40 mg DAILY@07 SC Last administered on 11/11/16 09 :14; Admin Dose 40 MG; Start 11/07/16 at 07:00 Hydromorphone HCl (Dilaudid) 0.5 mg Q3H PRN IV pain 1-5 Last administered on 21:00; Admin Dose 0.5 MG; Start 11/06/16 at 14:00 Hydromorphone HCl (Dilaudid) 1 mg Q4H PRN IV PAIN LEVEL 6-10 Last administered on 11/07/16 05:35; Admin Dose 1 MG; Start 11/06/16 at 14:00 Acetaminophen/ Hydrocodone Bitart ([place] (5/325)) 2 tab Q4H PRN PO Pain 6-10 Last administered on 11/09/16 23:03; Admin Dose 2 TAB; Start 11/07/16 at 08:30 Acetaminophen/ Hydrocodone Bitart ([place] (5/325)) 1 tab Q4H PRN PO Pain 1-5 Last administered on 11/08/16 04:43; Admin Dose 1 TAB; Start 11/07/16 at 08:30 Hydromorphone HCl (Dilaudid) 0.5 mg Q2 PRN IV Breakthrough PAIN; Start 11/07/16 at 08:30 Morphine Sulfate (morphine) 2 mg Q2H PRN IV Breakthrough PAIN; Start 11/07/16 at 08:30 Verapamil HCl (Isoptin Sr) 120 mg DAILY PO Last administered on 11/11/16 09:08 ; Admin Dose 120 MG; Start 11/10/16 at 09:00 Atenolol (Tenormin) 25 mg BID NGT Last administered on 11/11/16 09:09; Admin Dose 25 MG; Start 11/10/16 at 12:30 Benazepril HCl (Lotensin) 20 mg BID PO Last administered on 11/11/16 09:08; Admin Dose 20 MG; Start 11/10/16 at 21:00 Hydralazine HCl (Apresoline) 25 mg Q8 PO ; Start 11/11/16 at 14:00 Hydralazine HCl (Apresoline) 10 mg Q4H PRN IV sbp>160; Start 11/11/16 at 10:30 SKYLER LONGORIA M.D. Nov 11, 2016 12:42
[2016-11-11] MEDS ORDERED: TEN25 PO (13:41)
[2016-11-11] MEDS ORDERED: VER120SR PO (13:41)
[2016-11-11] MEDS ORDERED: FER325 PO (13:41)
[2016-11-11] MEDS ORDERED: HYDR-3671 PO (13:41)
[2016-11-11] MEDS ORDERED: BENA20TA48 PO (13:41)
[2016-11-11] MEDS ORDERED: ALBU18HF INH (13:41)
[2016-11-11] MEDS ORDERED: HYDR-3498 PO (13:41)
--- NOTE | 2016-11-11 13:46 | PDOCDIS ---
Discharge Instructions DIAGNOSIS Discharge Diagnosis: 1. Adenocarcinoma of the colon 2. Iron anemia 3. SVT CONDITION Patient Condition: Stable HOME CARE INSTRUCTIONS: Diet Instructions: Low Fat /Cholesterol ACTIVITY: Activity Restrictions: Slowly Increase Activity Rest between Activity Avoid heavy lifting Do not Drive Do not operate Machinery Do not operate Power Tool Avoid Heavy Housework Bathing Restrictions: Tub Bath FOLLOW UP/APPOINTMENTS Appointments 1. Follow up with Dr. Dina Chaney in a week 2. Follow up with Dr. Curt Amin in 1 week 3. Follow up with Dr. Tapan Cleary in 1-2 weeks YE CHO Nov 11, 2016 13:45
--- NOTE | 2016-11-11 14:49 | DS ---
Date/Time of Note Date/Time of Note DATE: 11/11/16 TIME: 14:42 Discharge Summary Admission/Discharge Info Admit Date/Time Oct 31, 2016 at 04:19 Discharge Date/Time Patient Condition: Stable Consults 1. Dr. Curt Amin 2. Dr. Dina Chaney 3. Dr. Tapan Cleary 4. Dr. Lem[facility] Hospital Course This is a 61-year-old female with history of hypertension, anemia, asthma, suspect CHF, supra-ventricular tachyarrhythmia, who came to [facility] due to reports of right inguinal and right lower quadrant abdominal pain. Patient reports she's been having this issue for a while but had worsened a few days prior to her admission. Patient did have CT scan of abdomen showing thickening of the proximal ascending colon suspect for neoplasm. Patient was consulted by die designer as well as by surgeon. Patient did undergo colonoscopy. Per biopsy is noted that patient did have moderately to poorly differentiated adenocarcinoma with ulceration. Patient was seen by oncologist for this issue. After multidisciplinary discussion patient did receive status post laparoscopic right colectomy with anastomosis on 11/06/2016. We did encourage her with incentive spirometry and did provide her with analgesics. Of note, pathology did come back of her right ascending colon which did show her to have colon cancer. Patient did have findings consistent with stage IIA disease (T3N1). Per oncology recommendations she would benefit from adjuvant chemotherapy for 6 months. Patient was to be started on Folfox in oncology office 6-8 weeks post-op. Patient was otherwise optimized medically. She did have iron deficiency anemia and was provided with iron supplement. She did have an episode of proximal supraventricular tachycardia and was seen by customer service consultant and provided with beta leonardo as well as verapamil from which she did have good response to. She is continued on an antihypertensive her hypertension and she did have a UTI and was provided with appropriate antibiotics. She was advised for weight reduction for her morbid obesity. During her course of stay she did improve. She was advised to follow-up with her consults. The plan of care was discussed with the patient and the patient did verbalize her understanding. On the day of discharge patient was in stable condition Discussed plan of care with Dr. Grimes Discharge process time is 40 minutes Disposition: Home Home Meds Active Scripts Albuterol Sulfate* (Ventolin HFA*) 18 Gm Hfa.aer.ad, 2 PUFF INH Q4H RESP THERAPY Y for WHEEZING AND SOB, #1 INH Prov:YE CHO 11/11/16 Benazepril Hcl* (Benazepril Hcl*) 20 Mg Tablet, 20 MG PO BID for 30 Days, TAB Prov:YE CHO 11/11/16 Verapamil Hcl* (Isoptin SR*) 120 Mg Tabsr, 120 MG PO DAILY for 30 Days, TAB Prov:YE CHO 11/11/16 Hydrocodone Bit-Acetaminophen (Hydrocodone Bit-APAP) 5-325MG Tablet, 2 TAB PO Q4H Y for Pain 6-10, #40 TAB Prov:YE CHO 11/11/16 Hydralazine Hcl* (Hydralazine Hcl*) 25 Mg Tab, 25 MG PO Q8 for 30 Days, TAB Prov:YE CHO 11/11/16 Atenolol (Tenormin) 25 Mg Tab, 25 MG PO BID for 30 Days, TAB Prov:YE CHO 11/11/16 Ferrous Sulfate* (Ferrous Sulfate*) 325 Mg Tabec, 325 MG PO TID, #90 TAB 2 Refills Prov:YE CHO 11/11/16 Ascorbic Acid (Vitamin C) 500 Mg Tab, 500 MG PO DAILY, #30 TAB 2 Refills Prov:YASMINE GUEVARA MD 10/17/15 Aspirin (Aspirin) 81 Mg Chew, 81 MG PO DAILY, #30 TAB 1 Refill Prov:YASMINE GUEVARA MD 10/17/15 Reported Medications Isosorbide Mononitrate* (Isosorbide Mononitrate*) 30 Mg Tab.er.24h, 30 MG PO DAILY, TAB 10/31/16 Diphenoxylate Hcl-Atropine* (Lomotil*) 1 Tab Tab, 1 TAB PO Q6H Y for DIARRHEA, TAB 10/13/15 Discontinued Reported Medications Benazepril Hcl* (Benazepril Hcl*) 10 Mg Tablet, 10 MG PO BID, #60 TAB 10/31/16 Discontinued Scripts Verapamil Hcl* (Verapamil ER*) 240 Mg Tabsr, 240 MG PO DAILY, #30 TAB 1 Refill Prov:YASMINE GUEVARA MD 10/17/15 Atenolol* (Tenormin*) 50 Mg Tab, 50 MG NGT BID, #60 TAB 1 Refill Prov:YASMINE GUEVARA MD 10/17/15 Follow-up Plan CONDITION Patient Condition: Stable HOME CARE INSTRUCTIONS: Diet Instructions: Low Fat /Cholesterol ACTIVITY: Activity Restrictions: Slowly Increase Activity Rest between Activity Avoid heavy lifting Do not Drive Do not operate Machinery Do not operate Power Tool Avoid Heavy Housework Bathing Restrictions: Tub Bath FOLLOW UP/APPOINTMENTS Appointments 1. Follow up with Dr. Dina Chaney in a week 2. Follow up with Dr. Curt Amin in 1 week 3. Follow up with Dr. Tapan Cleary in 1-2 weeks Pending Labs Laboratory Tests Test 11/11/16 04:36 Anion Gap 14 (8-16) Basophils # 0.010^3/ul (0.0-0.1) Basophils % 0.3% (0.0-2.0) Blood Urea Nitrogen 9mg/dl (7-20) Calcium Level 9.2mg/dl (8.4-10.2) Carbon Dioxide Level 23mmol/L (21-31) Chloride Level 109mmol/L (97-110) Creatinine 0.86mg/dl (0.44-1.00) Eosinophils # 0.410^3/ul (0.0-0.5) Eosinophils % 5.4% (0.0-7.0) Glucose Level 100mg/dl (70-220) Hematocrit 33.0% (37.0-47.0) Hemoglobin 9.9g/dl (12.0-16.0) Lymphocytes # 2.810^3/ul (0.8-2.9) Lymphocytes % 38.2% (15.0-51.0) Magnesium Level 1.8mg/dl (1.7-2.5) Mean Corpuscular Hemoglobin 22.8pg (29.0-33.0) Mean Corpuscular Hemoglobin Concent 30.0g/dl (32.0-37.0) Mean Corpuscular Volume 75.9fl (82.0-101.0) Mean Platelet Volume 9.0fl (7.4-10.4) Monocytes # 0.510^3/ul (0.3-0.9) Monocytes % 7.0% (0.0-11.0) Neutrophils # 3.610^3/ul (1.6-7.5) Neutrophils % 48.8% (39.0-77.0) Nucleated Red Blood Cells # 0.010^3/ul (0.0-0.0) Nucleated Red Blood Cells % 0.0/100WBC (0.0-0.0) Phosphorus Level 4.7mg/dl (2.5-4.9) Platelet Count 18341^3/UL (140-415) Potassium Level 3.8mmol/L (3.5-5.1) Red Blood Count 4.3510^6/ul (4.20-5.40) Red Cell Distribution Width 25.6% (11.5-14.5) Sodium Level 142mmol/L (135-144) White Blood Count 7.310^3/ul (4.8-10.8) YE CHO Nov 11, 2016 14:49
== END 2016-11-11 15:30 | disposition home or self-care (01) | DRG 330 ==
LOC: E/R 19:22 → MS1 10-31 04:19
PROVIDERS: ADMIT Internal Medicine; ATTEND Internal Medicine
PROC: 0DBK8ZX Excision of Ascending Colon, Via Natural or Artificial Opening Endoscopic, Diagnostic (ICD-10-PCS; 2016-11-01 15:00)
PROC: 0DTF4ZZ Resection of Right Large Intestine, Percutaneous Endoscopic Approach (ICD-10-PCS; principal; 2016-11-06 07:30)
DX: C18.2 Malignant neoplasm of ascending colon (principal); C77.8 Secondary and unspecified malignant neoplasm of lymph nodes of multiple regions; K63.3 Ulcer of intestine; N39.0 Urinary tract infection, site not specified; I47.1 Supraventricular tachycardia; K62.5 Hemorrhage of anus and rectum; N20.0 Calculus of kidney; E66.01 Morbid (severe) obesity due to excess calories; K63.89 Other specified diseases of intestine; K57.90 Diverticulosis of intestine, part unspecified, without perforation or abscess without bleeding; K64.9 Unspecified hemorrhoids; K43.2 Incisional hernia without obstruction or gangrene; J45.909 Unspecified asthma, uncomplicated; I10 Essential (primary) hypertension; R42 Dizziness and giddiness; R00.1 Bradycardia, unspecified; R94.31 Abnormal electrocardiogram [ECG] [EKG]; D50.9 Iron deficiency anemia, unspecified; D47.3 Essential (hemorrhagic) thrombocythemia; Z68.39 Body mass index [BMI] 39.0-39.9, adult; Z87.19 Personal history of other diseases of the digestive system
CPT/HCPCS: 36415; 36430; 71020; 74176; 80048; 80053; 80061; 81001; 81003; 82270; 82728; 83036; 83540; 83605; 83690; 83735; 84100; 84484; 85014; 85018; 85025; 85610; 85730; 86644; 86850; 86900; 86901; 86920; 87086; 88305; 88309; 93005; 96374; 96375; J1940; J0696; J0744; J1100; J1170; J1644; J1650; J2250; J2270; J2405; J2710; J2765; J2795; J2916; J3480; J7030; P9016; Q4166

== ENCOUNTER 2016-12-18 10:21 | Day surgery (SDC) | payer MEDICAID ==
[~2016-12-18] VITALS: Ht 172.7 cm; Wt 117.0 kg
[2016-12-18] VITALS (17 sets, daily range): BP systolic 90–115; BP diastolic 48–68; PULSE 58–72; RESP 15–18; Ht 172.7 cm; Wt 117.0 kg
[~2016-12-18 10:21] MED LIST changes: +ALBU18HF INH; -ATEN-122 NGT; +ATEN-138 PO; +BENA20TA48 PO; -CEPH500C PO; +HYDR-3498 PO; +HYDR-3671 PO; +ISOS30TA5 PO; +VER120SR PO; -VERA240T94 PO
[2016-12-18] MEDS ORDERED: LIDOCAINE 1%/EPI (MDV) 20 ML INJ ONE (12:19)
[2016-12-18] MEDS ORDERED: HEPARIN 1000 UNITS/ML 10 ML INJ ONE (12:19)
[2016-12-18] MEDS ORDERED: LIDOCAINE 1% (MPF) 30 ML INJ ONE (12:19)
[2016-12-18] MEDS ORDERED: IOHEXOL 300MG/ML 30 ML BTL ONE (12:20)
[2016-12-18] MEDS ORDERED: MIDAZOLAM 1 MG/ML 2 ML INJ ONE (12:39)
[2016-12-18] MEDS ORDERED: FENTAnyl 50 MCG/ML VIAL ONE (12:39)
[2016-12-18] MEDS ORDERED: PROPOFOL 20 ML ONE (13:56)
[2016-12-18] MEDS ORDERED: LIDOCAINE 2% (SDV) 5 ML INJ ONE (13:56)
[2016-12-18] MEDS ORDERED: CEFAZOLIN 1 GM INJ ONE (13:57)
[2016-12-18] MEDS ORDERED: FENTAnyl 50 MCG/ML VIAL IV PRN (14:00)
[2016-12-18] MEDS ORDERED: morphine (1 MG/ML) 10ML SYRINGE IV PRN (14:00)
[2016-12-18] MEDS ORDERED: MEPERIDINE 25 MG INJ IV PRN (14:00)
[2016-12-18] MEDS ORDERED: DIPHENHYDRAMINE 50 MG INJ IV PRN (14:00)
[2016-12-18] MEDS ORDERED: ONDANSETRON 4 MG INJ IV PRN ×2 (14:00→14:30)
--- NOTE | 2016-12-18 14:13 | HPN ---
Date/Time of Note Date/Time of Note DATE: 12/18/16 TIME: 14:13 Interval H&P Admission Note Pt. seen H&P reviewed: No system changes SACHIN MALAVE MD Dec 18, 2016 14:13
[2016-12-18] MEDS ORDERED: HYDROCODONE/APAP (5/325) TAB PO PRN ×2 (14:30)
[2016-12-18] MEDS ORDERED: morphine 2 MG INJ IV PRN (14:30)
--- NOTE | 2016-12-18 15:10 | RADRPT ---
PROCEDURE: Chest 1 views. CLINICAL INDICATION: As post line placement. TECHNIQUE: AP views of the chest was obtained. COMPARISON: November 05, 2016 FINDINGS: The heart is large. Right-sided chest port has its tip in the expected location of the mid superior vena cava. No consolidations are identified. No pneumothorax is seen. The osseous structures are osteopenic, but appear intact. IMPRESSION: Cardiomegaly . Right-sided chest port with its tip in the expected location of the mid superior vena cava. No visu alized pneumothorax. Clear lungs. RPTAT: AA .Tony Knott MD, Date Time Electronically viewed and signed by .Tony Knott MD, on 12/18/2016 15:10 .P/
--- NOTE | 2016-12-19 09:15 | RADRPT ---
PROCEDURE: XR Chest. CLINICAL INDICATION: VALDEMAR CATH INSERTION TECHNIQUE: Single frontal view of the chest was obtained. COMPARISON: Chest x-ray from 11/05/2016 FINDINGS: There has been interval placement of a right-sided Port-A-Cath with its tip in the distal SVC. There are low lung volumes and apparent mild cardiomegaly with prominence of interstitial markings, likely due to a combination of congestive changes and vascular crowding. There is no significant pleural effusion or pneumothorax. IMPRESSION: Interval placement of a right-sided Port-A-Cath with its tip in the distal SVC. Low lung volumes and mild apparent cardiomegaly with prominence of interstitial markings, likely due to a combination of congestive changes and vascular crowding. No definite focal infiltrates or effusions. RPTAT: EE Physician Rahel Date Time Electronically viewed and signed by Raul Pinon Physician on 12/19/2016 09:14 /
--- NOTE | 2016-12-25 14:32 | OPR ---
DATE OF OPERATION: 12/18/2016 PREOPERATIVE DIAGNOSES: 1. Colon cancer, in need of chemotherapy and Port-A-Cath. 2. Morbid obesity. POSTOPERATIVE DIAGNOSES: 1. Colon cancer, in need of chemotherapy and Port-A-Cath. 2. Morbid obesity. OPERATION PERFORMED: 1. Right internal jugular tunneled chemotherapy port, Port-A-Cath. 2. Ultrasound guidance. 3. Ultrasound interpretation. 4. Local anesthetic injection. SURGEON: Sachin Amin MD STEM SETTER: None. ANESTHESIA: MAC and local. ANESTHESIOLOGIST: COMPLICATIONS: None. SPECIMEN: None. ESTIMATED BLOOD LOSS: Less than 5 mL PROSTHETICS: A 14.5 Wolof 19 cm Port-A-Cath. INDICATION: Pao Lopez is a 61-year-old female with colon cancer status post laparoscopic colectomy who is here for chemotherapy port insertion. Risks, benefits, and alternatives have been fully revi ewed with her including but not limited to bleeding, infection, abscess, DVT, PE, pneumonia, organ f ailure, , injury to the neck vessels or nerves, injury to the lung, injury to the heart, need f or emergent operation. The patient fully understands and elects to proceed with surgery. DISPOSITION: Tolerated procedure well. PROCEDURE NOTE: The patient was brought in and placed supine on the operating table. SCDs were hernando jessica. Preoperative antibiotics administered. After induction of anesthesia, she was well padded and prepped and draped in usual sterile fashion, and time-out was performed. Ultrasound was used to investigate the right neck, and using the ultrasound, the 18 gauge needle was placed directly into the internal jugular which was compressible and superolateral to the carotid. At this point, dark, nonpulsatile blood was identified, and the wire was placed. Incision was made in the right chest after local anesthetic was injected at the site and along the t ract of the catheter, and a pocket was created for the Port-A-Cath. The port was secured with 2-0 V icryl to the fascia x2, and then the catheter was tunneled through the subcutaneous tissue into the right neck incision. Using Seldinger technique, the remaining catheter was placed over the introduc er into the IJ and introducer sheath was removed. There was no bleeding. At this point, needle asp iration through the port identified dark blood that easily aspirates and flushes. Wounds were irrig ated and completely hemostatic. Chest x-ray was obtained which identified the catheter in good posi tion. Skin was closed in the neck with 4-0 Monocryl in subcuticular fashion and on the chest with 2 layers of 2-0 Vicryl subcutaneous and dermal followed by 4-0 Monocryl subcuticular. Both sites wer e covered with dressing. The patient was taken back to recovery in stable condition. All counts we re correct at the end of the operation x2. ULTRASOUND FINDINGS: Ultrasound identified the right IJ anterolateral to the carotid and compressib le. Under direct visualization, the needle was initially placed into the IJ followed by a wire whic h was confirmed in both planes. Dictated By: SACHIN BIRD/TONIA Conf#: [id number] DID#: [id number]
== END 2016-12-18 16:15 | disposition home or self-care (01) ==
LOC: SDS 10:21
PROVIDERS: ATTEND Surgery
DX: C18.9 Malignant neoplasm of colon, unspecified (principal); E66.01 Morbid (severe) obesity due to excess calories; Z68.39 Body mass index [BMI] 39.0-39.9, adult
CPT/HCPCS: 36561; 71010; C1788; J0690; J1644; J2250; J3010; Q9967; Z7512; Z7610

== ENCOUNTER → 2017-06-24 | Outpatient (CLI) | payer MEDICAID ==
[~2017-06-24] MED LIST changes: -HYDR-3498 PO
== END | disposition home or self-care (01) ==
LOC: LAB 11:55
PROVIDERS: ATTEND Internal Medicine
DX: J02.0 Streptococcal pharyngitis (principal)
CPT/HCPCS: 87070

== ENCOUNTER → 2017-08-12 | Outpatient (CLI) | END | disposition home or self-care (01) ==